=== PATIENT | male | born 1965 | race Caucasian/White ===

== ENCOUNTER 2016-05-22 08:58 | Inpatient (IN) | payer OTHER ==
[~2016-05-22] VITALS: Ht 177.8 cm; Wt 127.0 kg
--- NOTE | 2016-05-22 09:33 | PHYS DOC ---
Past Medical History Past Medical History: COPD Past Surgical History: Cholecystectomy, Other Additional Past Surgical Histo: MULTIPLE HERNIA REPAIRS, LAST BEING 2008 Alcohol Use: None Drug Use: Marijuana Adult General Chief Complaint Chief Complaint: ABDOMINAL PAIN HPI HPI Patient is a 50 year old male with history of COPD who presents today with 5 out of 10 sharp mid and right lower abdominal pain began 5 days ago. Patient denies any fever nausea vomiting urgency frequency or dysuria. Denies any diarrhea. He states he smokes with occasionally to help him relax. Patient states his pain is worse when he is moving around. Review of Systems Review of Systems Constitutional: See history of present illness Eyes: Denies change in visual acuity, redness, or eye pain [] HENT: Denies nasal congestion or sore throat [] Respiratory: Denies cough or shortness of breath [] Cardiovascular: No additional information not addressed in HPI [] GI: Mid and right lower abdominal pain : See history of present illness Musculoskeletal: Denies back pain or joint pain [] Integument: Denies rash or skin lesions [] Neurologic: Denies headache, focal weakness or sensory changes [] Endocrine: Denies polyuria or polydipsia [] Current Medications Current Medications Current Medications Medications (Trade) Dose Ordered Sig/Nelson Start Time Stop Time Status Last Admin Dose Admin Ciprofloxacin Lactate (Cipro 400mg Premix) 200 ml @ 200 mls/hr 1X ONCE 05/22/16 11:15 05/22/16 12:14 DC 05/22/16 11:24 200 MLS/HR Info 1 each 1 each PRN DAILY PRN 05/22/16 10:00 05/24/16 09:59 Iohexol (Omnipaque 300 Mg/ml) 75 ml 1X ONCE 05/22/16 09:45 05/22/16 09:46 DC 05/22/16 10:19 60 ML Metronidazole 100 ml @ 100 mls/hr Q8HRS 05/22/16 12:00 05/22/16 12:39 100 MLS/HR Morphine Sulfate 5 mg 1X ONCE 05/22/16 09:45 05/22/16 09:46 DC 05/22/16 09:40 5 MG Ondansetron HCl (Zofran) 4 mg 1X ONCE 05/22/16 09:45 05/22/16 09:46 DC 05/22/16 09:39 4 MG Sodium Chloride (Iv Sodium Chloride 0.9% 1000ml Bag) 1,000 ml @ 1,000 mls/hr 1X ONCE 05/22/16 09:45 05/22/16 10:44 DC 05/22/16 09:39 1,000 MLS/HR Allergies Allergies Allergies Coded Allergies Type Severity Reaction Last Updated Verified No Known Drug Allergies 02/26/15 No Physical Exam Physical Exam Constitutional: Well developed, well nourished, no acute distress, non-toxic appearance. [] HENT: Normocephalic, atraumatic, bilateral external ears normal, oropharynx moist, no oral exudates, nose normal. [] Eyes: PERRLA, EOMI, conjunctiva normal, no discharge. [] Neck: Normal range of motion, no tenderness, supple, no stridor. [] Cardiovascular:Heart rate regular rhythm, no murmur [] Lungs & Thorax: Bilateral breath sounds clear to auscultation [] Abdomen: Rounded abdomen. Bowel sounds normal, soft, diffuse tenderness to the right upper, right lower, ,and mid lower abdomen, negative Vizcarra's sign, negative psoas sign, negative Rovsing sign. No masses, no pulsatile masses. [] No guarding no rebound pain or tenderness. Skin: Warm, dry, no erythema, no rash. [] Back: No tenderness, no CVA tenderness. [] Extremities: No tenderness, no cyanosis, no clubbing, ROM intact, no edema. [] Neurologic: Alert and oriented X 3, normal motor function, normal sensory function, no focal deficits noted. [] Psychologic: Affect normal, judgement normal, mood normal. [] Current Patient Data Vital Signs Vital Signs Date Time Temp Pulse Resp B/P Pulse Ox O2 Delivery O2 Flow Rate FiO2 05/22/16 09:14 98.2 88 18 123/82 98 Room Air 98.2 Lab Values Laboratory Tests Test 05/22/16 09:10 05/22/16 09:20 White Blood Count 13.1x10^3/uL (4.0-11.0) H Red Blood Count 5.71x10^6/uL (4.30-5.70) H Hemoglobin 16.2g/dL (13.0-17.5) Hematocrit 47.7% (39.0-53.0) Mean Corpuscular Volume 84fL (79-100) Mean Corpuscular Hemoglobin 28pg (25-35) Mean Corpuscular Hemoglobin Concent 34g/dL (31-37) Red Cell Distribution Width 14.4% (11.5-14.5) Platelet Count 233x10^3/uL (140-400) Neutrophils (%) (Auto) 81% (31-73) H Lymphocytes (%) (Auto) 8% (24-48) L Monocytes (%) (Auto) 8% (0-9) Eosinophils (%) (Auto) 2% (0-3) Basophils (%) (Auto) 1% (0-3) Neutrophils # (Auto) 10.6x10^3uL (1.8-7.7) H Lymphocytes # (Auto) 1.1x10^3/uL (1.0-4.8) Monocytes # (Auto) 1.0x10^3/uL (0.0-1.1) Eosinophils # (Auto) 0.3x10^3/uL (0.0-0.7) Basophils # (Auto) 0.1x10^3/uL (0.0-0.2) Sodium Level 142mmol/L (136-145) Potassium Level 4.2mmol/L (3.5-5.1) Chloride Level 105mmol/L (98-107) Carbon Dioxide Level 27mmol/L (21-32) Anion Gap 10 (6-14) Blood Urea Nitrogen 20mg/dL (8-26) Creatinine 1.3mg/dL (0.7-1.3) Estimated GFR (Cockcroft-Gault) 58.0 BUN/Creatinine Ratio 15 (6-20) Glucose Level 115mg/dL (70-99) H Calcium Level 9.5mg/dL (8.5-10.1) Total Bilirubin 1.4mg/dL (0.2-1.0) H Aspartate Amino Transferase (AST) 22U/L (15-37) Alanine Aminotransferase (ALT) 53U/L (16-63) Alkaline Phosphatase 53U/L (46-116) Total Protein 8.2g/dL (6.4-8.2) Albumin 3.3g/dL (3.4-5.0) L Albumin/Globulin Ratio 0.7 (1.0-1.7) L Lipase 229U/L (73-393) Ethyl Alcohol Level < 10mg/dL (0-10) Urine Collection Type Void Urine Color Yellow Urine Clarity Clear Urine pH 5.5 Urine Specific [place] 1.015 Urine Protein Negativemg/dL (NEG-TRACE) Urine Glucose (UA) Negativemg/dL (NEG) Urine Ketones (Stick) Negativemg/dL (NEG) Urine Blood Trace (NEG) Urine Nitrite Negative (NEG) Urine Bilirubin Negative (NEG) Urine Urobilinogen Dipstick 0.2mg/dL (0.2 mg/dL) Urine Leukocyte Esterase Negative (NEG) Urine RBC 0/HPF (0-2) Urine WBC 0/HPF (0-4) Urine Squamous Epithelial Cells Few/LPF Urine Bacteria 0/HPF (0-FEW) Urine Mucus Slight/LPF Urine Opiates Screen Neg (NEG) Urine Methadone Screen Neg (NEG) Urine Barbiturates Neg (NEG) Urine Phencyclidine Screen Neg (NEG) Urine Amphetamine/Methamphetamine Neg (NEG) Urine Benzodiazepines Screen Neg (NEG) Urine Cocaine Screen Neg (NEG) Urine Cannabinoids Screen Pos (NEG) Urine Ethyl Alcohol Neg (NEG) Laboratory Tests 05/22/16 09:10 Laboratory Tests 05/22/16 09:10 EKG EKG [] Radiology/Procedures Radiology/Procedures []PROCEDURE: ABD PELV W/ IV CONTRAST ONLY EXAM: Abdomen and pelvis CT with intravenous contrast. HISTORY: Right lower quadrant pain. TECHNIQUE: Computed tomographic images of the abdomen and pelvis were obtained following the administration of 60 cc Omnipaque 300 intravenous contrast. Multiplanar reformatting was performed. COMPARISON: None. FINDINGS: Evaluation of the lower thorax demonstrates a calcified granuloma within the left lower lobe and bilateral posterior dependent atelectasis. There is no infiltrate or effusion. The heart is normal in size. There is hepatic steatosis. The gallbladder is surgically absent. The pancreas, spleen and right adrenal gland are unremarkable. There is calcification of atrophic left adrenal gland possibly due to the sequela of chronic hemorrhage. There is a 1.8 cm cyst within the lateral mid zone of the left kidney. The appendix is unremarkable. There is sigmoid diverticulosis with superimposed perforated diverticulitis. There is and associated small amount of intraperitoneal free air and surrounding inflammatory stranding. There is also a 2.7 cm ill-defined collection of fluid. The bladder is unremarkable. There are findings consistent with ventral abdominal wall hernia repair. There is soft tissue density within the ventral peritoneum adjacent to the umbilicus, possibly postoperative. No pathologically enlarged lymph node is seen. There is no suspicious osseous lesion. IMPRESSION: 1. Perforated sigmoid diverticulitis with associated small amount of pneumoperitoneum and extensive surrounding inflammatory stranding. There is also a 2.7 cm ill-defined fluid collection within this region. Short-term follow-up is recommended to exclude early abscess formation. 2. Hepatic steatosis. 3. 1.8 cm suspected left renal cyst. 4. Left adrenal calcification likely due to prior hemorrhage. PQRS Compliance Statement: One or more of the following individualized dose reduction techniques were utilized for this examination: 1. Automated exposure control 2. Adjustment of the mA and/or kV according to patient size 3. Use of iterative reconstruction technique DICTATED and SIGNED BY: NAM GILBERT MD DATE: 05/22/16 1033 CC: VALENTÍN VALDEZ MD; PATTI MARAVILLA APRN ~ Course & Med Decision Making Course & Med Decision Making Pertinent Labs and Imaging studies reviewed. (See chart for details) Patient is in the ED with complaints of mid to right lower abdominal pain that began 5 days ago. CBC with a WBC of 13.1, CMP with bilirubin of 1.4. Vitals are normal. CT of the abdomen and pelvic with IV contrast was noted for perforated sigmoid diverticulitis with associated small amount of pneumoperitoneum and extensive surrounding inflammatory stranding, there is also 2.7 cm ill-defined fluid collection within the region and radiologist recommended short-term follow -up to exclude an early abscess formation. CT also noted for 1.8 cm left renal cyst. 11:[address] Siegel and he was admitted 12:03 consulted with his PCP Dr. Valdez who accepted him for admission Patient was started on Flagyl and Cipro. IV fluids were also initiated. Admitted with pain medicines. Consult was also put in for GI. Dragon Disclaimer Dragon Disclaimer This electronic medical record was generated, in whole or in part, using a voice recognition dictation system. Departure Departure Impression: Primary Impression: Diverticulitis Admitting Physician: Valentín Valdez Condition: STABLE Referrals: VALENTÍN VALDEZ MD (PCP) Problem Qualifiers Primary Impression: Diverticulitis Diverticulitis site: large intestine Diverticulitis bleeding: without bleeding Diverticulitis complication: with perforation Qualified Code: K57.20 - Diverticulitis of large intestine with perforation and abscess without bleeding PATTI MARAVILLA APRN May 22, 2016 09:33
[2016-05-22 09:43] LABS: BILIRUBIN,URINE NEGATIVE (NEG); GLUCOSE,URINE NEGATIVE (NEG); NITRITE,URINE NEGATIVE (NEG); PH,URINE 5.5; PROTEIN,URINE NEGATIVE (NEG-TRACE); UROBILINOGEN,URINE 0.2 mg/dL (0.2 mg/dL)
[2016-05-22 09:45] LABS: BASO # 0.1 x10^3/uL (0.0-0.2); BASO % 1 % (0-3); EOS % 2 % (0-3); HEMATOCRIT 47.7 % (39.0-53.0); HEMOGLOBIN 16.2 g/dL (13.0-17.5); LYMPH # 1.1 x10^3/uL (1.0-4.8); LYMPH % 8 % (24-48); MEAN CORPUSCULAR HEMOGLOBIN 28 pg (25-35); MEAN CORPUSCULAR HGB CONC 34 g/dL (31-37); MEAN CORPUSCULAR VOLUME 84 fL (79-100); MONO % 8 % (0-9); NEUT % 81 % (31-73); PLATELET COUNT 233 x10^3/uL (140-400); RED BLOOD COUNT 5.71 x10^6/uL (4.30-5.70); RED CELL DISTRIBUTION WIDTH 14.4 % (11.5-14.5); WHITE BLOOD COUNT 13.1 x10^3/uL (4.0-11.0)
[2016-05-22] MEDS ORDERED: ONDANSETRON PF 4 MG/2 ML VIAL. IV ONE (09:45)
[2016-05-22] MEDS ORDERED: MORPHINE SULFATE 10 MG/ML VIAL. IV ONE (09:45)
[2016-05-22] MEDS ORDERED: IOHEXOL 300 MG/ML 75 ML VIAL IV ONE (09:45)
[2016-05-22] MEDS ORDERED: IV NORMAL SALINE 1000ML BAG 1,000 ML IV ONE ×2 (09:45→13:30)
[2016-05-22 09:48] LABS: CALCIUM 9.5 mg/dL (8.5-10.1); CREATININE 1.3 mg/dL (0.7-1.3); POTASSIUM 4.2 mmol/L (3.5-5.1)
[2016-05-22 09:53] LABS: BARBITURATES NEG (NEG); BENZODIAZEPINES NEG (NEG); CANNABINOIDS POS (NEG); COCAINE NEG (NEG); ETHANOL, URINE NEG (NEG); METHADONE NEG (NEG); OPIATES NEG (NEG); PHENCYCLIDINE NEG (NEG)
[2016-05-22 09:53] LABS: ALBUMIN 3.3 g/dL (3.4-5.0); ALBUMIN/GLOBULIN RATIO 0.7 (1.0-1.7); TOTAL BILIRUBIN 1.4 mg/dL (0.2-1.0); TOTAL PROTEIN 8.2 g/dL (6.4-8.2)
[2016-05-22 09:58] LABS: BACTERIA,URINE 0 /HPF (0-FEW); RBC,URINE 0 /HPF (0-2); SQUAMOUS EPITHELIAL CELL,UR FEW /LPF; WBC,URINE 0 /HPF (0-4)
[2016-05-22] MEDS ORDERED: CONTRAST GIVEN MC PRN (10:00)
--- NOTE | 2016-05-22 10:42 | RAD ---
EXAM: Abdomen and pelvis CT with intravenous contrast. HISTORY: Right lower quadrant pain. TECHNIQUE: Computed tomographic images of the abdomen and pelvis were obtained following the administration of 60 cc Omnipaque 300 intravenous contrast. Multiplanar reformatting was performed. COMPARISON: None. FINDINGS: Evaluation of the lower thorax demonstrates a calcified granuloma within the left lower lobe and bilateral posterior dependent atelectasis. There is no infiltrate or effusion. The heart is normal in size. There is hepatic steatosis. The gallbladder is surgically absent. The pancreas, spleen and right adrenal gland are unremarkable. There is calcification of atrophic left adrenal gland possibly due to the sequela of chronic hemorrhage. There is a 1.8 cm cyst within the lateral mid zone of the left kidney. The appendix is unremarkable. There is sigmoid diverticulosis with superimposed perforated diverticulitis. There is and associated small amount of intraperitoneal free air and surrounding inflammatory stranding. There is also a 2.7 cm ill-defined collection of fluid. The bladder is unremarkable. There are findings consistent with ventral abdominal wall hernia repair. There is soft tissue density within the ventral peritoneum adjacent to the umbilicus, possibly postoperative. No pathologically enlarged lymph node is seen. There is no suspicious osseous lesion. IMPRESSION: 1. Perforated sigmoid diverticulitis with associated small amount of pneumoperitoneum and extensive surrounding inflammatory stranding. There is also a 2.7 cm ill-defined fluid collection within this region. Short-term follow-up is recommended to exclude early abscess formation. 2. Hepatic steatosis. 3. 1.8 cm suspected left renal cyst. 4. Left adrenal calcification likely due to prior hemorrhage. PQRS Compliance Statement: One or more of the following individualized dose reduction techniques were utilized for this examination: 1. Automated exposure control 2. Adjustment of the mA and/or kV according to patient size 3. Use of iterative reconstruction technique
[2016-05-22] MEDS ORDERED: CIPROFLOXACIN 400MG PREMIX 200 ML IV ONE (11:15)
[2016-05-22] MEDS: METRONIDAZOLE 500mg PREMIX 100 ML IV SCH ×2 (12:39→23:27)
[2016-05-22] MEDS ORDERED: ONDANSETRON PF 4 MG/2 ML VIAL. IV PRN (12:45)
[2016-05-22] MEDS: HYDROMORPHONE 2 MG/ML VIAL. IV PRN ×3 (13:15→21:23)
[2016-05-22 13:30] VITALS: BP 146/71
--- NOTE | 2016-05-22 13:31 | PDOC ---
Provider Note Provider Note #[id number]--gshnurp agree with npo, iv abx Thanks! PRIETO NEWTON MD May 22, 2016 13:31
[2016-05-22] MEDS ORDERED: METRONIDAZOLE 500mg PREMIX 100 ML IV SCH (14:00)
[2016-05-22 15:00] VITALS: BP 127/72
[2016-05-22 19:30] VITALS: BP 143/74
[2016-05-22] MEDS ORDERED: CIPROFLOXACIN 400MG PREMIX 200 ML IV SCH (21:00)
[2016-05-22] MEDS: FAMOTIDINE 20 MG/2 ML VIAL IVP SCH (21:22)
[2016-05-22] MEDS: CIPROFLOXACIN 400MG PREMIX 200 ML IV SCH (21:24)
[2016-05-22 23:15] VITALS: BP 151/82
[2016-05-23 02:44] VITALS: BP 128/77
[2016-05-23] MEDS: HYDROMORPHONE 2 MG/ML VIAL. IV PRN ×6 (03:55→23:49)
[2016-05-23 05:19] LABS: BASO % 1 % (0-3); EOS % 1 % (0-3); HEMATOCRIT 41.8 % (39.0-53.0); HEMOGLOBIN 14.1 g/dL (13.0-17.5); LYMPH % 11 % (24-48); MEAN CORPUSCULAR HEMOGLOBIN 28 pg (25-35); MEAN CORPUSCULAR HGB CONC 34 g/dL (31-37); MEAN CORPUSCULAR VOLUME 84 fL (79-100); MONO % 11 % (0-9); NEUT % 77 % (31-73); PLATELET COUNT 216 x10^3/uL (140-400); RED BLOOD COUNT 4.99 x10^6/uL (4.30-5.70); RED CELL DISTRIBUTION WIDTH 14.1 % (11.5-14.5); WHITE BLOOD COUNT 9.6 x10^3/uL (4.0-11.0)
[2016-05-23 05:47] LABS: ALBUMIN 2.8 g/dL (3.4-5.0); ALBUMIN/GLOBULIN RATIO 0.7 (1.0-1.7); CALCIUM 8.7 mg/dL (8.5-10.1); CREATININE 1.2 mg/dL (0.7-1.3); GFR 63.6; POTASSIUM 4.2 mmol/L (3.5-5.1); TOTAL BILIRUBIN 1.2 mg/dL (0.2-1.0); TOTAL PROTEIN 6.8 g/dL (6.4-8.2)
[2016-05-23] MEDS: METRONIDAZOLE 500mg PREMIX 100 ML IV SCH ×3 (06:15→22:34)
[2016-05-23 07:00] VITALS: BP 136/81
--- NOTE | 2016-05-23 07:07 | CONS ---
DATE OF CONSULTATION: 05/22/2016 CHIEF COMPLAINT: Abdominal pain. HISTORY OF PRESENT ILLNESS: The patient is a 50-year-old male, who presents with worsening left lower quadrant pain since Monday. The pain is not severe. It is constant with periods of worsening. It is a sharp, crampy type of pain. It is exacerbated by movement and he has no relieving factors. He has no associated nausea or vomiting. He has had some associated constipation. PAST MEDICAL HISTORY: 1. COPD. 2. Traumatic brain injury. PAST SURGICAL HISTORY: 1. Tracheostomy. 2. Multiple orthopedic surgeries. 3. Laparoscopic cholecystectomy. 4. Incisional hernia repair at both the umbilical incision as well as his epigastric incision, the last of which was in 2008 and he says he did have mesh placed at both sites. SOCIAL HISTORY: He smokes marijuana. He does not use alcohol heavily. He has his fiancee and son with him at this time and he is employed. FAMILY HISTORY: Noncontributory to this illness. ALLERGIES: No known drug allergies. HOME MEDICATIONS: None. REVIEW OF SYSTEMS: CONSTITUTIONAL: No fevers or chills. EYES: No abrupt loss of vision or double vision. He does have some blurred vision at times. HEENT: He has loss of hearing and some ringing in his ears. CARDIOVASCULAR: No chest pain or heart palpitations. RESPIRATORY: No cough or shortness of breath. GASTROINTESTINAL: See HPI. GENITOURINARY: No dysuria or hematuria. HEMATOLOGIC: No easy bleeding or bruising. MUSCULOSKELETAL: He has chronic myalgias and arthralgias due to his multiple orthopedic injuries. DERMATOLOGIC: No new skin rashes or lesions. PSYCHIATRIC: Denies depression or anxiety. NEUROLOGIC: He has headaches. No seizures. He does have some traumatic brain injury. ENDOCRINE: No polyuria or polydipsia. PHYSICAL EXAMINATION: VITAL SIGNS: He is afebrile, with a pulse of 88, respiratory rate 18, blood pressure 123/82, O2 sats 98% on room air. GENERAL: This is an obese male, who is in no acute distress. His BMI is 40.2. EYES: His pupils are round and reactive. Sclerae are nonicteric. HEAD, EARS, NOSE, THROAT: Head is atraumatic. Mucous membranes are moist. Face is symmetric. NECK: Supple, without cervical lymphadenopathy, no supraclavicular lymphadenopathy. Neck without masses or tenderness. CARDIOVASCULAR: By palpation of his right radial pulse, he has 2+ right radial pulse. No pedal edema. His rate is regular. RESPIRATORY: His respirations are nonlabored. He is on room air. Chest wall is nontender to palpation. ABDOMEN: Soft, nondistended. He is focally tender in the left lower quadrant and the lower midline, with no rebound and no guarding. He has incisions consistent with his previous surgical history. DERMATOLOGIC: Exposed portions of his skin are unremarkable. NEUROLOGIC: He has no resting tremor. He can move all 4 extremities without difficulty. 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 PSYCHIATRIC: He is cooperative with appropriate mood and affect. LABORATORY DATA: Reviewed. CT scan images as well as the report was reviewed. ASSESSMENT: 1. Perforated diverticulitis. 2. Morbid obesity with BMI of 40.2. 3. Chronic obstructive pulmonary disease. 4. Marijuana use. 5. Traumatic brain injury. PLAN: The patient's exam is very focal. His vital signs are stable. I think it is very reasonable to keep him n.p.o. with IV antibiotics. Given the amount of air in a contained pocket around his sigmoid colon, he is at risk of developing an abscess. I did discuss that with him. If he does not improve, we may need to repeat a CT scan to see if he has developed an abscess that may be amenable to percutaneous drainage. Certainly, if he fails medical management, he could require operative intervention. This was all discussed with the patient. Questions were answered and he voices understanding of the treatment plan. PRIETO NEWTON MD DR: ANDRY/lisa JOB#: [id number] / [id number] VALENTÍN June MD
[2016-05-23] MEDS: CIPROFLOXACIN 400MG PREMIX 200 ML IV SCH ×2 (08:18→21:18)
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
[2016-05-23] MEDS ORDERED: INFLUENZA VAX SCREEN BY RX. MC PRN (09:15)
--- NOTE | 2016-05-23 09:21 | PDOC ---
PROGRESS NOTES Subjective Subjective Pt awake and pleasant. States pain is improved with pain medication. Pt states a continuous urge to defecate. Pt states he does not have an appetite and is currently NPO. Objective Objective Pt awake and alert. NAD. VSS. Afebrile. Lungs CTA bilat. Resp even and unlabored. Heart with RRR. No murmurs. Abdomen tender throughout, specifically in LLQ, nondistended and soft. Vital Signs Date Time Temp Pulse Resp B/P Pulse Ox O2 Delivery O2 Flow Rate FiO2 05/23/16 08:52 96 Room Air 05/23/16 07:00 98.2 81 20 136/81 98.2 Intake and Output 05/23/16 07:00 Intake Total 1784 ml Output Total 950 ml Balance 834 ml Intake Oral 0 ml IV Total 1784 ml Output Urine Total 900 ml Emesis 50 ml # Voids 1 Assessment Assessment Problems Medical Problems: (1) Diverticulitis Status: Acute Plan Plan of Care 1. Acute perfarated diverticulitis -CT: "Perforated sigmoid diverticulitis with associated small amount of pneumoperitoneum and extensive surrounding inflammatory stranding. There is also a 2.7 cm ill-defined fluid collection within this region. Short-term follow -up is recommended to exclude early abscess formation." -WBC upon admission 13.1, 9.6 this am -Abx: Cipro IV -Surgery consulting -Interventional radiology consulting, probable drain placement today -NPO Comment Review of Relevant I have reviewed the following items ho (where applicable) has been applied. Labs Laboratory Tests Test 05/22/16 09:10 05/22/16 09:20 05/23/16 04:20 White Blood Count 13.1x10^3/uL (4.0-11.0) 9.6x10^3/uL (4.0-11.0) Red Blood Count 5.71x10^6/uL (4.30-5.70) 4.99x10^6/uL (4.30-5.70) Hemoglobin 16.2g/dL (13.0-17.5) 14.1g/dL (13.0-17.5) Hematocrit 47.7% (39.0-53.0) 41.8% (39.0-53.0) Mean Corpuscular Volume 84fL (79-100) 84fL (79-100) Mean Corpuscular Hemoglobin 28pg (25-35) 28pg (25-35) Mean Corpuscular Hemoglobin Concent 34g/dL (31-37) 34g/dL (31-37) Red Cell Distribution Width 14.4% (11.5-14.5) 14.1% (11.5-14.5) Platelet Count 233x10^3/uL (140-400) 216x10^3/uL (140-400) Neutrophils (%) (Auto) 81% (31-73) 77% (31-73) Lymphocytes (%) (Auto) 8% (24-48) 11% (24-48) Monocytes (%) (Auto) 8% (0-9) 11% (0-9) Eosinophils (%) (Auto) 2% (0-3) 1% (0-3) Basophils (%) (Auto) 1% (0-3) 1% (0-3) Neutrophils # (Auto) 10.6x10^3uL (1.8-7.7) 7.4x10^3uL (1.8-7.7) Lymphocytes # (Auto) 1.1x10^3/uL (1.0-4.8) 1.0x10^3/uL (1.0-4.8) Monocytes # (Auto) 1.0x10^3/uL (0.0-1.1) 1.0x10^3/uL (0.0-1.1) Eosinophils # (Auto) 0.3x10^3/uL (0.0-0.7) 0.1x10^3/uL (0.0-0.7) Basophils # (Auto) 0.1x10^3/uL (0.0-0.2) 0.0x10^3/uL (0.0-0.2) Sodium Level 142mmol/L (136-145) 145mmol/L (136-145) Potassium Level 4.2mmol/L (3.5-5.1) 4.2mmol/L (3.5-5.1) Chloride Level 105mmol/L (98-107) 109mmol/L (98-107) Carbon Dioxide Level 27mmol/L (21-32) 27mmol/L (21-32) Anion Gap 10 (6-14) 9 (6-14) Blood Urea Nitrogen 20mg/dL (8-26) 19mg/dL (8-26) Creatinine 1.3mg/dL (0.7-1.3) 1.2mg/dL (0.7-1.3) Estimated GFR (Cockcroft-Gault) 58.0 63.6 BUN/Creatinine Ratio 15 (6-20) 16 (6-20) Glucose Level 115mg/dL (70-99) 106mg/dL (70-99) Calcium Level 9.5mg/dL (8.5-10.1) 8.7mg/dL (8.5-10.1) Total Bilirubin 1.4mg/dL (0.2-1.0) 1.2mg/dL (0.2-1.0) Aspartate Amino Transf (AST/SGOT) 22U/L (15-37) 20U/L (15-37) Alanine Aminotransferase (ALT/SGPT) 53U/L (16-63) 57U/L (16-63) Alkaline Phosphatase 53U/L (46-116) 46U/L (46-116) Total Protein 8.2g/dL (6.4-8.2) 6.8g/dL (6.4-8.2) Albumin 3.3g/dL (3.4-5.0) 2.8g/dL (3.4-5.0) Albumin/Globulin Ratio 0.7 (1.0-1.7) 0.7 (1.0-1.7) Lipase 229U/L (73-393) Ethyl Alcohol Level < 10mg/dL (0-10) Urine Collection Type Void Urine Color Yellow Urine Clarity Clear Urine pH 5.5 Urine Specific [place] 1.015 Urine Protein Negativemg/dL (NEG-TRACE) Urine Glucose (UA) Negativemg/dL (NEG) Urine Ketones (Stick) Negativemg/dL (NEG) Urine Blood Trace (NEG) Urine Nitrite Negative (NEG) Urine Bilirubin Negative (NEG) Urine Urobilinogen Dipstick 0.2mg/dL (0.2 mg/dL) Urine Leukocyte Esterase Negative (NEG) Urine RBC 0/HPF (0-2) Urine WBC 0/HPF (0-4) Urine Squamous Epithelial Cells Few/LPF Urine Bacteria 0/HPF (0-FEW) Urine Mucus Slight/LPF Urine Opiates Screen Neg (NEG) Urine Methadone Screen Neg (NEG) Urine Barbiturates Neg (NEG) Urine Phencyclidine Screen Neg (NEG) Urine Amphetamine/Methamphetamine Neg (NEG) Urine Benzodiazepines Screen Neg (NEG) Urine Cocaine Screen Neg (NEG) Urine Cannabinoids Screen Pos (NEG) Urine Ethyl Alcohol Neg (NEG) Laboratory Tests Test 05/22/16 09:20 05/23/16 04:20 Urine Collection Type Void Urine Color Yellow Urine Clarity Clear Urine pH 5.5 Urine Specific [place] 1.015 Urine Protein Negativemg/dL (NEG-TRACE) Urine Glucose (UA) Negativemg/dL (NEG) Urine Ketones (Stick) Negativemg/dL (NEG) Urine Blood Trace (NEG) Urine Nitrite Negative (NEG) Urine Bilirubin Negative (NEG) Urine Urobilinogen Dipstick 0.2mg/dL (0.2 mg/dL) Urine Leukocyte Esterase Negative (NEG) Urine RBC 0/HPF (0-2) Urine WBC 0/HPF (0-4) Urine Squamous Epithelial Cells Few/LPF Urine Bacteria 0/HPF (0-FEW) Urine Mucus Slight/LPF Urine Opiates Screen Neg (NEG) Urine Methadone Screen Neg (NEG) Urine Barbiturates Neg (NEG) Urine Phencyclidine Screen Neg (NEG) Urine Amphetamine/Methamphetamine Neg (NEG) Urine Benzodiazepines Screen Neg (NEG) Urine Cocaine Screen Neg (NEG) Urine Cannabinoids Screen Pos (NEG) Urine Ethyl Alcohol Neg (NEG) White Blood Count 9.6x10^3/uL (4.0-11.0) Red Blood Count 4.99x10^6/uL (4.30-5.70) Hemoglobin 14.1g/dL (13.0-17.5) Hematocrit 41.8% (39.0-53.0) Mean Corpuscular Volume 84fL (79-100) Mean Corpuscular Hemoglobin 28pg (25-35) Mean Corpuscular Hemoglobin Concent 34g/dL (31-37) Red Cell Distribution Width 14.1% (11.5-14.5) Platelet Count 216x10^3/uL (140-400) Neutrophils (%) (Auto) 77% (31-73) Lymphocytes (%) (Auto) 11% (24-48) Monocytes (%) (Auto) 11% (0-9) Eosinophils (%) (Auto) 1% (0-3) Basophils (%) (Auto) 1% (0-3) Neutrophils # (Auto) 7.4x10^3uL (1.8-7.7) Lymphocytes # (Auto) 1.0x10^3/uL (1.0-4.8) Monocytes # (Auto) 1.0x10^3/uL (0.0-1.1) Eosinophils # (Auto) 0.1x10^3/uL (0.0-0.7) Basophils # (Auto) 0.0x10^3/uL (0.0-0.2) Sodium Level 145mmol/L (136-145) Potassium Level 4.2mmol/L (3.5-5.1) Chloride Level 109mmol/L (98-107) Carbon Dioxide Level 27mmol/L (21-32) Anion Gap 9 (6-14) Blood Urea Nitrogen 19mg/dL (8-26) Creatinine 1.2mg/dL (0.7-1.3) Estimated GFR (Cockcroft-Gault) 63.6 BUN/Creatinine Ratio 16 (6-20) Glucose Level 106mg/dL (70-99) Calcium Level 8.7mg/dL (8.5-10.1) Total Bilirubin 1.2mg/dL (0.2-1.0) Aspartate Amino Transf (AST/SGOT) 20U/L (15-37) Alanine Aminotransferase (ALT/SGPT) 57U/L (16-63) Alkaline Phosphatase 46U/L (46-116) Total Protein 6.8g/dL (6.4-8.2) Albumin 2.8g/dL (3.4-5.0) Albumin/Globulin Ratio 0.7 (1.0-1.7) Medications Current Medications Sodium Chloride (Iv Sodium Chloride 0.9% 1000ml Bag) 1,000 ml @ 1,000 mls/hr 1X ONCE IV Last administered on 05/22/16t 09:39; Start 05/22/16 at 09:45; Stop 05/22/16 at 10:44; Status DC Ondansetron HCl (Zofran) 4 mg 1X ONCE IV Last administered on 05/22/16 09:39 ; Start 05/22/16 at 09:45; Stop 05/22/16 at 09:46; Status DC Morphine Sulfate 5 mg 1X ONCE IV Last administered on 05/22/16 09:40; Start 05/22/16 at 09:45; Stop 05/22/16 at 09:46; Status DC Iohexol (Omnipaque 300 Mg/ml) 75 ml 1X ONCE IV Last administered on 05/22/16 10:19; Start 05/22/16 at 09:45; Stop 05/22/16 at 09:46; Status DC Info 1 each 1 each PRN DAILY PRN MC SEE COMMENTS; Start 05/22/16 at 10:00; Stop 05/24/16 at 09:59 Metronidazole 100 ml @ 100 mls/hr Q8HRS IV Last administered on 05/23/16 06: 15; Start 05/22/16 at 12:00 Ciprofloxacin Lactate 200 ml @ 200 mls/hr Q12HR IV Last administered on 08:18; Start 05/22/16 at 21:00 Ciprofloxacin Lactate (Cipro 400mg Premix) 200 ml @ 200 mls/hr 1X ONCE IV Last administered on 05/22/16 11:24; Start 05/22/16 at 11:15; Stop 05/22/16 at 12:14; Status DC Ondansetron HCl (Zofran) 4 mg PRN Q8HRS PRN IV NAUSEA/VOMITING Last administered on 05/22/16 21:22; Start 05/22/16 at 12:45; Stop 05/23/16 at 12:44 Hydromorphone HCl 1 mg 1 mg PRN Q3HRS PRN IV PAIN Last administered on 08:18; Start 05/22/16 at 12:45 Sodium Chloride 1,000 ml @ 125 mls/hr 1X ONCE IV Last administered on 14:06; Start 05/22/16 at 13:30; Stop 05/22/16 at 21:29; Status DC Metronidazole 100 ml @ 100 mls/hr Q8HRS IV ; Start 05/22/16 at 14:00; Status UNV Ciprofloxacin Lactate (Cipro 400mg Premix) 200 ml @ 200 mls/hr Q12HR IV ; Start 05/22/16 at 21:00; Status UNV Famotidine (Pepcid) 20 mg QHS IVP Last administered on 05/22/16t 21:22; Start 05/22/16 at 21:00 Vitals/I & O Vital Sign - Last 24 Hours 05/22/16 05/22/16 05/22/16 05/22/16 09:14 10:00 11:00 12:00 Temp 98.2 98.2 Pulse 88 77 72 72 Resp 18 18 18 18 B/P 123/82 121/88 127/79 132/72 Pulse Ox 98 97 97 97 O2 Delivery Room Air Room Air Room Air Room Air 05/22/16 05/22/16 05/22/16 05/22/16 13:00 13:30 13:30 13:30 Temp 98.4 98.4 98.4 98.4 Pulse 78 95 95 Resp 16 20 20 B/P 117/77 146/71 146/71 Pulse Ox 97 94 94 O2 Delivery Room Air Room Air Room Air Room Air 05/22/16 05/22/16 05/22/16 05/22/16 15:00 16:48 19:30 20:45 Temp 98.2 99.2 98.2 99.2 Pulse 88 90 Resp 20 16 16 B/P 127/72 143/74 Pulse Ox 91 94 O2 Delivery Room Air Room Air BiPAP/CPAP Room Air 05/22/16 05/22/16 05/23/16 05/23/16 21:23 23:15 02:44 03:55 Temp 97.8 99.1 97.8 99.1 Pulse 87 73 Resp 16 20 16 18 B/P 151/82 128/77 Pulse Ox 92 96 O2 Delivery Room Air Room Air BiPAP/CPAP Room Air 05/23/16 05/23/16 05/23/16 05/23/16 04:25 07:00 08:18 08:52 Temp 98.2 98.2 Pulse 81 Resp 18 20 B/P 136/81 Pulse Ox 97 96 96 O2 Delivery Room Air Room Air Room Air Intake and Output 05/22/16 05/22/16 05/23/16 15:00 23:00 07:00 Intake Total 1200 ml 584 ml 0 ml Output Total 350 ml 600 ml Balance 1200 ml 234 ml -600 ml VALENTÍN ROBLES MD May 23, 2016 09:21
[2016-05-23] MEDS ORDERED: FLU VACC QUAD 2016-17 (36MOS+)/PF 0.5 ML SYRINGE. VAX IM ONE (10:00)
[2016-05-23 10:41] VITALS: BP 136/69
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
--- NOTE | 2016-05-23 11:39 | CONS ---
DATE OF CONSULTATION: 05/22/2016 CHIEF COMPLAINT: Abdominal pain. HISTORY OF PRESENT ILLNESS: The patient is a 50-year-old male who noted that he developed left lower quadrant pain Monday. The pain has become increasingly severe. The pain is constant with periods of worsening. It is sharp, crampy type of pain, it is now fairly severe with the aggravating factor being movements. No relieving factors. He has been unable to have a good bowel movement in the last several days and he has had no nausea or vomiting. PAST MEDICAL HISTORY: 1. COPD. 2. Traumatic brain injury. PAST SURGICAL HISTORY: 1. Cholecystectomy, laparoscopic. 2. Repair of the epigastric and umbilical incisional hernia. DICTATION ENDS HERE the dictation abruptly ended so i redictated the consult. ignore the above. PRIETO NEWTON MD DR: ANDRY/lisa JOB#: [id number] / [id number] VALENTÍN June MD MTDD
[2016-05-23] MEDS: ONDANSETRON PF 4 MG/2 ML VIAL. IV PRN ×2 (13:00→23:49)
--- NOTE | 2016-05-23 13:09 | PDOC ---
Provider Note Provider Note Pain without sig change since admission. no n/v. pain worse with movement afeb vss wbc normal alert abd soft nd focal LLQ and suprapubic tenderness a/p diverticulitis. cont iv abx and npo. may need to repeat ct in a couple of days to assess for development of abscess if he doesn't improve PRIETO NEWTON MD May 23, 2016 13:09
[2016-05-23 15:38] VITALS: BP 145/75
[2016-05-23 19:00] VITALS: BP 158/78
[2016-05-23] MEDS: FAMOTIDINE 20 MG/2 ML VIAL IVP SCH (21:17)
[2016-05-23] MEDS: IV DEXTROSE 5% - 0.9 % NACL 1,000 ML IV SCH (21:23)
[2016-05-23 23:15] VITALS: BP 150/84
[2016-05-24 03:10] VITALS: BP 147/79
[2016-05-24] MEDS: HYDROMORPHONE 2 MG/ML VIAL. IV PRN ×6 (03:39→21:03)
[2016-05-24] MEDS: ONDANSETRON PF 4 MG/2 ML VIAL. IV PRN ×3 (06:02→19:08)
[2016-05-24] MEDS: METRONIDAZOLE 500mg PREMIX 100 ML IV SCH ×3 (06:03→22:07)
[2016-05-24 07:00] VITALS: BP 150/79
--- NOTE | 2016-05-24 08:24 | PDOC ---
JESUS BASS DECORATING SUPERVISOR 05/24/16 0823: SURGICAL PROGRESS NOTE Subjective significant pain last night with attempting bowel movement + emesis last night still moderate amount of pain with movement Vital Signs Vital Signs Date Time Temp Pulse Resp B/P Pulse Ox O2 Delivery O2 Flow Rate FiO2 05/24/16 07:25 18 94 Room Air 05/24/16 07:00 97.7 80 150/79 97.7 I&O Intake and Output 05/24/16 07:00 Intake Total 1303 ml Output Total 450 ml Balance 853 ml Intake Oral 0 ml IV Total 300 ml Other 1003 ml Output Urine Total 400 ml Emesis 50 ml General: Alert, Oriented X3, Cooperative, No acute distress Abdomen: Soft, Other (moderate ttp to lower abdomen, greatest to LLQ/suprapubic ) Labs Laboratory Tests Test 05/22/16 09:10 05/22/16 09:20 05/23/16 04:20 White Blood Count 13.1x10^3/uL (4.0-11.0) 9.6x10^3/uL (4.0-11.0) Red Blood Count 5.71x10^6/uL (4.30-5.70) 4.99x10^6/uL (4.30-5.70) Hemoglobin 16.2g/dL (13.0-17.5) 14.1g/dL (13.0-17.5) Hematocrit 47.7% (39.0-53.0) 41.8% (39.0-53.0) Mean Corpuscular Volume 84fL (79-100) 84fL (79-100) Mean Corpuscular Hemoglobin 28pg (25-35) 28pg (25-35) Mean Corpuscular Hemoglobin Concent 34g/dL (31-37) 34g/dL (31-37) Red Cell Distribution Width 14.4% (11.5-14.5) 14.1% (11.5-14.5) Platelet Count 233x10^3/uL (140-400) 216x10^3/uL (140-400) Neutrophils (%) (Auto) 81% (31-73) 77% (31-73) Lymphocytes (%) (Auto) 8% (24-48) 11% (24-48) Monocytes (%) (Auto) 8% (0-9) 11% (0-9) Eosinophils (%) (Auto) 2% (0-3) 1% (0-3) Basophils (%) (Auto) 1% (0-3) 1% (0-3) Neutrophils # (Auto) 10.6x10^3uL (1.8-7.7) 7.4x10^3uL (1.8-7.7) Lymphocytes # (Auto) 1.1x10^3/uL (1.0-4.8) 1.0x10^3/uL (1.0-4.8) Monocytes # (Auto) 1.0x10^3/uL (0.0-1.1) 1.0x10^3/uL (0.0-1.1) Eosinophils # (Auto) 0.3x10^3/uL (0.0-0.7) 0.1x10^3/uL (0.0-0.7) Basophils # (Auto) 0.1x10^3/uL (0.0-0.2) 0.0x10^3/uL (0.0-0.2) Sodium Level 142mmol/L (136-145) 145mmol/L (136-145) Potassium Level 4.2mmol/L (3.5-5.1) 4.2mmol/L (3.5-5.1) Chloride Level 105mmol/L (98-107) 109mmol/L (98-107) Carbon Dioxide Level 27mmol/L (21-32) 27mmol/L (21-32) Anion Gap 10 (6-14) 9 (6-14) Blood Urea Nitrogen 20mg/dL (8-26) 19mg/dL (8-26) Creatinine 1.3mg/dL (0.7-1.3) 1.2mg/dL (0.7-1.3) Estimated GFR (Cockcroft-Gault) 58.0 63.6 BUN/Creatinine Ratio 15 (6-20) 16 (6-20) Glucose Level 115mg/dL (70-99) 106mg/dL (70-99) Calcium Level 9.5mg/dL (8.5-10.1) 8.7mg/dL (8.5-10.1) Total Bilirubin 1.4mg/dL (0.2-1.0) 1.2mg/dL (0.2-1.0) Aspartate Amino Transf (AST/SGOT) 22U/L (15-37) 20U/L (15-37) Alanine Aminotransferase (ALT/SGPT) 53U/L (16-63) 57U/L (16-63) Alkaline Phosphatase 53U/L (46-116) 46U/L (46-116) Total Protein 8.2g/dL (6.4-8.2) 6.8g/dL (6.4-8.2) Albumin 3.3g/dL (3.4-5.0) 2.8g/dL (3.4-5.0) Albumin/Globulin Ratio 0.7 (1.0-1.7) 0.7 (1.0-1.7) Lipase 229U/L (73-393) Ethyl Alcohol Level < 10mg/dL (0-10) Urine Collection Type Void Urine Color Yellow Urine Clarity Clear Urine pH 5.5 Urine Specific [place] 1.015 Urine Protein Negativemg/dL (NEG-TRACE) Urine Glucose (UA) Negativemg/dL (NEG) Urine Ketones (Stick) Negativemg/dL (NEG) Urine Blood Trace (NEG) Urine Nitrite Negative (NEG) Urine Bilirubin Negative (NEG) Urine Urobilinogen Dipstick 0.2mg/dL (0.2 mg/dL) Urine Leukocyte Esterase Negative (NEG) Urine RBC 0/HPF (0-2) Urine WBC 0/HPF (0-4) Urine Squamous Epithelial Cells Few/LPF Urine Bacteria 0/HPF (0-FEW) Urine Mucus Slight/LPF Urine Opiates Screen Neg (NEG) Urine Methadone Screen Neg (NEG) Urine Barbiturates Neg (NEG) Urine Phencyclidine Screen Neg (NEG) Urine Amphetamine/Methamphetamine Neg (NEG) Urine Benzodiazepines Screen Neg (NEG) Urine Cocaine Screen Neg (NEG) Urine Cannabinoids Screen Pos (NEG) Urine Ethyl Alcohol Neg (NEG) Problem List Problems Medical Problems: (1) Diverticulitis Status: Acute Assessment/Plan afebrile, however continued pain without much improvement will plan CT in AM to assess for abscess continue NPO, IV abx Problems: PRIETO NEWTON MD 05/24/16 1126: SURGICAL PROGRESS NOTE Assessment/Plan addendum i saw and examined him. He had increased pain last night after trying to have a bm, but is now feeling better. afeb vss abd soft less tender nondistended a/p diverticulitis, will get CT tomorrow to eval for development of abscess. cont iv abx and npo. Problems: JESUS BASS APRN May 24, 2016 08:23 PRIETO NEWTON MD May 24, 2016 11:26
[2016-05-24] MEDS: CIPROFLOXACIN 400MG PREMIX 200 ML IV SCH ×2 (09:00→21:02)
--- NOTE | 2016-05-24 09:09 | PDOC ---
PROGRESS NOTES Subjective Subjective Pt awake and pleasant this am. Cont to c/o pain, however states he is less tender with palpation. Pt vomiting intermittently over last 24 hours. Pt continues to be NPO. Objective Objective Pt awake and alert. Appears uncomfortable lying in bed. VSS. Afebrile. Lungs CTA bilat. Resp even and unlabored. Heart with RRR. No murmurs. Abdomen soft, nondistended, tender to palpation throughout. Vital Signs Date Time Temp Pulse Resp B/P Pulse Ox O2 Delivery O2 Flow Rate FiO2 05/24/16 07:25 18 94 Room Air 05/24/16 07:00 97.7 80 150/79 97.7 Intake and Output 05/24/16 07:00 Intake Total 1303 ml Output Total 450 ml Balance 853 ml Intake Oral 0 ml IV Total 300 ml Other 1003 ml Output Urine Total 400 ml Emesis 50 ml Assessment Assessment Problems Medical Problems: (1) Diverticulitis Status: Acute Plan Plan of Care . Acute perfarated diverticulitis -CT: "Perforated sigmoid diverticulitis with associated small amount of pneumoperitoneum and extensive surrounding inflammatory stranding. There is also a 2.7 cm ill-defined fluid collection within this region. Short-term follow -up is recommended to exclude early abscess formation." -Repeat CT today to r/o abscess -WBC upon admission 13.1, 9.6 this am. Repeat ordered -Abx: Cipro IV -Surgery consulting -Interventional radiology consulting, probable drain placement today -NPO Pt okay to transfer off of cardiac floor today to med/surg. Comment Review of Relevant I have reviewed the following items ho (where applicable) has been applied. Labs Laboratory Tests Test 05/22/16 09:10 05/22/16 09:20 05/23/16 04:20 White Blood Count 13.1x10^3/uL (4.0-11.0) 9.6x10^3/uL (4.0-11.0) Red Blood Count 5.71x10^6/uL (4.30-5.70) 4.99x10^6/uL (4.30-5.70) Hemoglobin 16.2g/dL (13.0-17.5) 14.1g/dL (13.0-17.5) Hematocrit 47.7% (39.0-53.0) 41.8% (39.0-53.0) Mean Corpuscular Volume 84fL (79-100) 84fL (79-100) Mean Corpuscular Hemoglobin 28pg (25-35) 28pg (25-35) Mean Corpuscular Hemoglobin Concent 34g/dL (31-37) 34g/dL (31-37) Red Cell Distribution Width 14.4% (11.5-14.5) 14.1% (11.5-14.5) Platelet Count 233x10^3/uL (140-400) 216x10^3/uL (140-400) Neutrophils (%) (Auto) 81% (31-73) 77% (31-73) Lymphocytes (%) (Auto) 8% (24-48) 11% (24-48) Monocytes (%) (Auto) 8% (0-9) 11% (0-9) Eosinophils (%) (Auto) 2% (0-3) 1% (0-3) Basophils (%) (Auto) 1% (0-3) 1% (0-3) Neutrophils # (Auto) 10.6x10^3uL (1.8-7.7) 7.4x10^3uL (1.8-7.7) Lymphocytes # (Auto) 1.1x10^3/uL (1.0-4.8) 1.0x10^3/uL (1.0-4.8) Monocytes # (Auto) 1.0x10^3/uL (0.0-1.1) 1.0x10^3/uL (0.0-1.1) Eosinophils # (Auto) 0.3x10^3/uL (0.0-0.7) 0.1x10^3/uL (0.0-0.7) Basophils # (Auto) 0.1x10^3/uL (0.0-0.2) 0.0x10^3/uL (0.0-0.2) Sodium Level 142mmol/L (136-145) 145mmol/L (136-145) Potassium Level 4.2mmol/L (3.5-5.1) 4.2mmol/L (3.5-5.1) Chloride Level 105mmol/L (98-107) 109mmol/L (98-107) Carbon Dioxide Level 27mmol/L (21-32) 27mmol/L (21-32) Anion Gap 10 (6-14) 9 (6-14) Blood Urea Nitrogen 20mg/dL (8-26) 19mg/dL (8-26) Creatinine 1.3mg/dL (0.7-1.3) 1.2mg/dL (0.7-1.3) Estimated GFR (Cockcroft-Gault) 58.0 63.6 BUN/Creatinine Ratio 15 (6-20) 16 (6-20) Glucose Level 115mg/dL (70-99) 106mg/dL (70-99) Calcium Level 9.5mg/dL (8.5-10.1) 8.7mg/dL (8.5-10.1) Total Bilirubin 1.4mg/dL (0.2-1.0) 1.2mg/dL (0.2-1.0) Aspartate Amino Transf (AST/SGOT) 22U/L (15-37) 20U/L (15-37) Alanine Aminotransferase (ALT/SGPT) 53U/L (16-63) 57U/L (16-63) Alkaline Phosphatase 53U/L (46-116) 46U/L (46-116) Total Protein 8.2g/dL (6.4-8.2) 6.8g/dL (6.4-8.2) Albumin 3.3g/dL (3.4-5.0) 2.8g/dL (3.4-5.0) Albumin/Globulin Ratio 0.7 (1.0-1.7) 0.7 (1.0-1.7) Lipase 229U/L (73-393) Ethyl Alcohol Level < 10mg/dL (0-10) Urine Collection Type Void Urine Color Yellow Urine Clarity Clear Urine pH 5.5 Urine Specific [place] 1.015 Urine Protein Negativemg/dL (NEG-TRACE) Urine Glucose (UA) Negativemg/dL (NEG) Urine Ketones (Stick) Negativemg/dL (NEG) Urine Blood Trace (NEG) Urine Nitrite Negative (NEG) Urine Bilirubin Negative (NEG) Urine Urobilinogen Dipstick 0.2mg/dL (0.2 mg/dL) Urine Leukocyte Esterase Negative (NEG) Urine RBC 0/HPF (0-2) Urine WBC 0/HPF (0-4) Urine Squamous Epithelial Cells Few/LPF Urine Bacteria 0/HPF (0-FEW) Urine Mucus Slight/LPF Urine Opiates Screen Neg (NEG) Urine Methadone Screen Neg (NEG) Urine Barbiturates Neg (NEG) Urine Phencyclidine Screen Neg (NEG) Urine Amphetamine/Methamphetamine Neg (NEG) Urine Benzodiazepines Screen Neg (NEG) Urine Cocaine Screen Neg (NEG) Urine Cannabinoids Screen Pos (NEG) Urine Ethyl Alcohol Neg (NEG) Medications Current Medications Sodium Chloride (Iv Sodium Chloride 0.9% 1000ml Bag) 1,000 ml @ 1,000 mls/hr 1X ONCE IV Last administered on 05/22/16 09:39; Start 05/22/16 at 09:45; Stop 05/22/16 at 10:44; Status DC Ondansetron HCl (Zofran) 4 mg 1X ONCE IV Last administered on 05/22/16 09:39 ; Start 05/22/16 at 09:45; Stop 05/22/16 at 09:46; Status DC Morphine Sulfate 5 mg 1X ONCE IV Last administered on 05/22/16 09:40; Start 05/22/16 at 09:45; Stop 05/22/16 at 09:46; Status DC Iohexol (Omnipaque 300 Mg/ml) 75 ml 1X ONCE IV Last administered on 05/22/16 10:19; Start 05/22/16 at 09:45; Stop 05/22/16 at 09:46; Status DC Info 1 each 1 each PRN DAILY PRN MC SEE COMMENTS; Start 05/22/16 at 10:00; Stop 05/24/16 at 09:59 Metronidazole 100 ml @ 100 mls/hr Q8HRS IV Last administered on 05/24/16 06: 03; Start 05/22/16 at 12:00 Ciprofloxacin Lactate 200 ml @ 200 mls/hr Q12HR IV Last administered on 21:18; Start 05/22/16 at 21:00 Ciprofloxacin Lactate (Cipro 400mg Premix) 200 ml @ 200 mls/hr 1X ONCE IV Last administered on 05/22/16 11:24; Start 05/22/16 at 11:15; Stop 05/22/16 at 12:14; Status DC Ondansetron HCl (Zofran) 4 mg PRN Q8HRS PRN IV NAUSEA/VOMITING Last administered on 05/22/16 21:22; Start 05/22/16 at 12:45; Stop 05/23/16 at 12:44 ; Status DC Hydromorphone HCl 1 mg 1 mg PRN Q3HRS PRN IV PAIN Last administered on 06:43; Start 05/22/16 at 12:45 Sodium Chloride 1,000 ml @ 125 mls/hr 1X ONCE IV Last administered on 14:06; Start 05/22/16 at 13:30; Stop 05/22/16 at 21:29; Status DC Metronidazole 100 ml @ 100 mls/hr Q8HRS IV ; Start 05/22/16 at 14:00; Status UNV Ciprofloxacin Lactate (Cipro 400mg Premix) 200 ml @ 200 mls/hr Q12HR IV ; Start 05/22/16 at 21:00; Status UNV Famotidine (Pepcid) 20 mg QHS IVP Last administered on 05/23/16 21:17; Start 05/22/16 at 21:00 Info (Do NOT chart on this placeholder) 1 each PRN 1X PRN MC SEE COMMENTS; Start 05/23/16 at 09:15; Status UNV Influenza Virus Vaccine Quadrival (Fluarix Quad 4772-1390 Syringe) 0.5 ml ONCE ONCE VAX IM ; Start 05/23/16 at 10:00; Stop 05/23/16 at 10:01; Status DC Ondansetron HCl 4 mg 4 mg PRN Q6HRS PRN IV NAUSEA/VOMITING Last administered on 05/24/16 06:02; Start 05/23/16 at 13:00 Dextrose/Sodium Chloride (Iv D5% - NS) 1,000 ml @ 100 mls/hr Q10H IV Last administered on 05/23/16 21:23; Start 05/23/16 at 18:30 Vitals/I & O Vital Sign - Last 24 Hours 05/23/16 05/23/16 05/23/16 05/23/16 10:41 12:55 13:54 15:38 Temp 97.9 98.1 97.9 98.1 Pulse 75 86 Resp 18 18 B/P 136/69 145/75 Pulse Ox 93 93 92 O2 Delivery Room Air Room Air Room Air Room Air 05/23/16 05/23/16 05/23/16 05/23/16 16:32 19:00 20:30 20:32 Temp 98.1 98.1 Pulse 78 Resp 18 16 B/P 158/78 Pulse Ox 92 94 94 O2 Delivery Room Air Room Air Room Air Room Air 05/23/16 05/23/16 05/24/16 05/24/16 23:15 23:49 03:10 03:39 Temp 98.9 97.9 98.9 97.9 Pulse 84 81 Resp 22 18 18 16 B/P 150/84 147/79 Pulse Ox 97 94 98 94 O2 Delivery Room Air Room Air Room Air Room Air 05/24/16 05/24/16 05/24/16 06:43 07:00 07:25 Temp 97.7 97.7 Pulse 80 Resp 16 18 18 B/P 150/79 Pulse Ox 94 94 94 O2 Delivery Room Air Room Air Room Air Intake and Output 05/23/16 05/23/16 05/24/16 15:00 23:00 07:00 Intake Total 200 ml 100 ml 1003 ml Output Total 450 ml Balance 200 ml 100 ml 553 ml VALENTÍN ROBLES MD May 24, 2016 09:09
[2016-05-24 09:17] LABS: BASO # 0.1 x10^3/uL (0.0-0.2); BASO % 1 % (0-3); EOS % 1 % (0-3); HEMATOCRIT 42.5 % (39.0-53.0); LYMPH # 0.9 x10^3/uL (1.0-4.8); LYMPH % 9 % (24-48); MEAN CORPUSCULAR HEMOGLOBIN 28 pg (25-35); MEAN CORPUSCULAR HGB CONC 33 g/dL (31-37); MEAN CORPUSCULAR VOLUME 85 fL (79-100); MONO % 9 % (0-9); NEUT % 81 % (31-73); PLATELET COUNT 226 x10^3/uL (140-400); RED BLOOD COUNT 4.97 x10^6/uL (4.30-5.70); RED CELL DISTRIBUTION WIDTH 14.1 % (11.5-14.5); WHITE BLOOD COUNT 9.7 x10^3/uL (4.0-11.0)
--- NOTE | 2016-05-24 09:41 | PDOC ---
Subjective: Subjective: Strained/attempted BM yesterday w/ severe lower abd pain. No stool, passing gas. Nausea is now bothersome, vomited yesterday. Pain is improved w/ meds. Objective: Vital Signs: Vital Signs Date Time Temp Pulse Resp B/P Pulse Ox O2 Delivery O2 Flow Rate FiO2 05/24/16 07:25 18 94 Room Air 05/24/16 07:00 97.7 80 150/79 97.7 Labs: Laboratory Tests Test 05/24/16 08:40 White Blood Count 9.7x10^3/uL Red Blood Count 4.97x10^6/uL Hemoglobin 14.0g/dL Hematocrit 42.5% Mean Corpuscular Volume 85fL Mean Corpuscular Hemoglobin 28pg Mean Corpuscular Hemoglobin Concent 33g/dL Red Cell Distribution Width 14.1% Platelet Count 226x10^3/uL Neutrophils (%) (Auto) 81% Lymphocytes (%) (Auto) 9% Monocytes (%) (Auto) 9% Eosinophils (%) (Auto) 1% Basophils (%) (Auto) 1% Neutrophils # (Auto) 7.8x10^3uL Lymphocytes # (Auto) 0.9x10^3/uL Monocytes # (Auto) 0.9x10^3/uL Eosinophils # (Auto) 0.1x10^3/uL Basophils # (Auto) 0.1x10^3/uL PE: GEN: NAD LUNGS: CTAB anteriorly HEART: RRR ABD: BS+, tenderness suprapubic > LLQ NEURO/PSYCH: A & O 3 A/P: LLQ pain w/ perforated diverticulitis (?abscess) -CT 05/22 -surgery following, on IV atbx, NPO -last colonoscopy 2014 -- Note plans for repeat CT tomorrow a.m. Will follow. MIRNA PALACIOS May 24, 2016 09:41
[2016-05-24 09:46] LABS: CALCIUM 8.8 mg/dL (8.5-10.1); CREATININE 1.2 mg/dL (0.7-1.3); GFR 63.6; POTASSIUM 4.3 mmol/L (3.5-5.1)
[2016-05-24 11:08] VITALS: BP 143/74
[2016-05-24] MEDS: IV DEXTROSE 5% - 0.9 % NACL 1,000 ML IV SCH ×2 (12:54→16:01)
[2016-05-24 15:00] VITALS: BP 138/79
[2016-05-24 19:00] VITALS: BP 144/88
[2016-05-24] MEDS: FAMOTIDINE 20 MG/2 ML VIAL IVP SCH (21:08)
[2016-05-24 23:00] VITALS: BP 157/84
[2016-05-25] VITALS (24 sets, daily range): BP systolic 135–161; BP diastolic 68–88
[2016-05-25] MEDS: HYDROMORPHONE 2 MG/ML VIAL. IV PRN ×7 (00:55→21:17)
[2016-05-25] MEDS: ONDANSETRON PF 4 MG/2 ML VIAL. IV PRN ×4 (00:55→19:45)
[2016-05-25] MEDS: IV DEXTROSE 5% - 0.9 % NACL 1,000 ML IV SCH ×3 (00:57→20:35)
[2016-05-25] MEDS: METRONIDAZOLE 500mg PREMIX 100 ML IV SCH ×3 (05:22→22:09)
[2016-05-25] MEDS ORDERED: CONTRAST GIVEN MC PRN (06:45)
[2016-05-25] MEDS ORDERED: IOHEXOL 240 MG/ML 50ML VIAL. PO ONE (06:45)
[2016-05-25] MEDS ORDERED: IOHEXOL 300 MG/ML 75 ML VIAL IV ONE ×2 (06:45→10:15)
[2016-05-25] MEDS: CIPROFLOXACIN 400MG PREMIX 200 ML IV SCH ×2 (08:42→20:34)
--- NOTE | 2016-05-25 09:56 | PDOC ---
Subjective: Subjective: Pain is better today, about 3/10. Ongoing nausea. Passing gas. Objective: Vital Signs: Vital Signs Date Time Temp Pulse Resp B/P Pulse Ox O2 Delivery O2 Flow Rate FiO2 05/25/16 08:41 16 Room Air 05/25/16 07:00 96.4 68 135/79 96 96.4 PE: GEN: NAD LUNGS: CTAB anteriorly HEART: RRR ABD: less suprapubic and LLQ tenderness NEURO/PSYCH: A & O 3 A/P: LLQ pain w/ perforated diverticulitis (?abscess) -CT 05/22 -surgery following, on IV atbx, NPO -last colonoscopy 2014 -- Await interval CT. MIRNA PALACIOS May 25, 2016 09:56
--- NOTE | 2016-05-25 10:55 | PDOC ---
PROGRESS NOTES Subjective Subjective Pt states pain improved, 3/10 on pain scale. States he is tolerating clear liquids and has been passing gas. Objective Objective Pt awake and alert. Abdomen soft, nondistended, and nontender to palpation this am. Vital Signs Date Time Temp Pulse Resp B/P Pulse Ox O2 Delivery O2 Flow Rate FiO2 05/25/16 08:41 16 Room Air 05/25/16 07:00 96.4 68 135/79 96 96.4 Intake and Output 05/25/16 07:00 Intake Total 10 ml Output Total 100 ml Balance -90 ml Intake Oral 10 ml Output Urine Total 100 ml # Voids 1 Assessment Assessment Problems Medical Problems: (1) Diverticulitis Status: Acute Plan Plan of Care Acute perfarated diverticulitis -CT: "Perforated sigmoid diverticulitis with associated small amount of pneumoperitoneum and extensive surrounding inflammatory stranding. There is also a 2.7 cm ill-defined fluid collection within this region. Short-term follow -up is recommended to exclude early abscess formation." -Repeat CT today to r/o abscess -WBC upon admission 13.1, 9.6 this am. Repeat ordered -Abx: Cipro IV -Surgery consulting -Interventional radiology consulting, probable drain placement today -Pt tolerating clear liquids without increased n/v Comment Review of Relevant I have reviewed the following items ho (where applicable) has been applied. Labs Laboratory Tests Test 05/24/16 08:40 White Blood Count 9.7x10^3/uL (4.0-11.0) Red Blood Count 4.97x10^6/uL (4.30-5.70) Hemoglobin 14.0g/dL (13.0-17.5) Hematocrit 42.5% (39.0-53.0) Mean Corpuscular Volume 85fL (79-100) Mean Corpuscular Hemoglobin 28pg (25-35) Mean Corpuscular Hemoglobin Concent 33g/dL (31-37) Red Cell Distribution Width 14.1% (11.5-14.5) Platelet Count 226x10^3/uL (140-400) Neutrophils (%) (Auto) 81% (31-73) Lymphocytes (%) (Auto) 9% (24-48) Monocytes (%) (Auto) 9% (0-9) Eosinophils (%) (Auto) 1% (0-3) Basophils (%) (Auto) 1% (0-3) Neutrophils # (Auto) 7.8x10^3uL (1.8-7.7) Lymphocytes # (Auto) 0.9x10^3/uL (1.0-4.8) Monocytes # (Auto) 0.9x10^3/uL (0.0-1.1) Eosinophils # (Auto) 0.1x10^3/uL (0.0-0.7) Basophils # (Auto) 0.1x10^3/uL (0.0-0.2) Sodium Level 144mmol/L (136-145) Potassium Level 4.3mmol/L (3.5-5.1) Chloride Level 108mmol/L (98-107) Carbon Dioxide Level 29mmol/L (21-32) Anion Gap 7 (6-14) Blood Urea Nitrogen 17mg/dL (8-26) Creatinine 1.2mg/dL (0.7-1.3) Estimated GFR (Cockcroft-Gault) 63.6 Glucose Level 120mg/dL (70-99) Calcium Level 8.8mg/dL (8.5-10.1) Medications Current Medications Sodium Chloride (Iv Sodium Chloride 0.9% 1000ml Bag) 1,000 ml @ 1,000 mls/hr 1X ONCE IV Last administered on 05/22/16 09:39; Start 05/22/16 at 09:45; Stop 05/22/16 at 10:44; Status DC Ondansetron HCl (Zofran) 4 mg 1X ONCE IV Last administered on 05/22/16 09:39 ; Start 05/22/16 at 09:45; Stop 05/22/16 at 09:46; Status DC Morphine Sulfate 5 mg 1X ONCE IV Last administered on 05/22/16 09:40; Start 05/22/16 at 09:45; Stop 05/22/16 at 09:46; Status DC Iohexol (Omnipaque 300 Mg/ml) 75 ml 1X ONCE IV Last administered on 05/22/16 10:19; Start 05/22/16 at 09:45; Stop 05/22/16 at 09:46; Status DC Info 1 each 1 each PRN DAILY PRN MC SEE COMMENTS; Start 05/22/16 at 10:00; Stop 05/24/16 at 09:59; Status DC Metronidazole 100 ml @ 100 mls/hr Q8HRS IV Last administered on 05/25/16 05:22 ; Start 05/22/16 at 12:00 Ciprofloxacin Lactate 200 ml @ 200 mls/hr Q12HR IV Last administered on 08:42; Start 05/22/16 at 21:00 Ciprofloxacin Lactate (Cipro 400mg Premix) 200 ml @ 200 mls/hr 1X ONCE IV Last administered on 05/22/16 11:24; Start 05/22/16 at 11:15; Stop 05/22/16 at 12:14; Status DC Ondansetron HCl (Zofran) 4 mg PRN Q8HRS PRN IV NAUSEA/VOMITING Last administered on 05/22/16 21:22; Start 05/22/16 at 12:45; Stop 05/23/16 at 12:44 ; Status DC Hydromorphone HCl 1 mg 1 mg PRN Q3HRS PRN IV PAIN Last administered on 08:41; Start 05/22/16 at 12:45 Sodium Chloride 1,000 ml @ 125 mls/hr 1X ONCE IV Last administered on 14:06; Start 05/22/16 at 13:30; Stop 05/22/16 at 21:29; Status DC Metronidazole 100 ml @ 100 mls/hr Q8HRS IV ; Start 05/22/16 at 14:00; Status UNV Ciprofloxacin Lactate (Cipro 400mg Premix) 200 ml @ 200 mls/hr Q12HR IV ; Start 05/22/16 at 21:00; Status UNV Famotidine (Pepcid) 20 mg QHS IVP Last administered on 05/24/16 21:08; Start 05/22/16 at 21:00 Info (Do NOT chart on this placeholder) 1 each PRN 1X PRN MC SEE COMMENTS; Start 05/23/16 at 09:15; Status UNV Influenza Virus Vaccine Quadrival (Fluarix Quad 1006-0661 Syringe) 0.5 ml ONCE ONCE VAX IM ; Start 05/23/16 at 10:00; Stop 05/23/16 at 10:01; Status DC Ondansetron HCl 4 mg 4 mg PRN Q6HRS PRN IV NAUSEA/VOMITING Last administered on 05/25/16 07:04; Start 05/23/16 at 13:00 Dextrose/Sodium Chloride (Iv D5% - NS) 1,000 ml @ 100 mls/hr Q10H IV Last administered on 05/24/16 16:01; Start 05/23/16 at 18:30 Iohexol (Omnipaque 300 Mg/ml) 75 ml 1X ONCE IV Last administered on 05/25/16 10:30; Start 05/25/16 at 06:45; Stop 05/25/16 at 06:46; Status DC Iohexol (Omnipaque 240 Mg/ml) 30 ml 1X ONCE PO ; Start 05/25/16 at 06:45; Stop 05/25/16 at 06:46; Status DC Info (Do NOT chart on this entry -- for MONITORING) 1 each PRN DAILY PRN MC SEE COMMENTS; Start 05/25/16 at 06:45; Stop 05/27/16 at 06:44 Iohexol (Omnipaque 300 Mg/ml) 75 ml 1X ONCE IV ; Start 05/25/16 at 10:15; Stop 05/25/16 at 10:16; Status DC Vitals/I & O Vital Sign - Last 24 Hours 05/24/16 05/24/16 05/24/16 05/24/16 11:08 11:22 14:58 15:00 Temp 98.2 98.2 Pulse 79 80 Resp 18 20 18 B/P 143/74 138/79 Pulse Ox 95 95 90 O2 Delivery Room Air Room Air Room Air 05/24/16 05/24/16 05/24/16 05/24/16 18:07 19:00 20:25 21:03 Temp 98.8 98.8 Pulse 82 Resp 18 B/P 144/88 Pulse Ox 93 O2 Delivery Room Air Room Air Room Air Room Air 05/24/16 05/25/16 05/25/16 05/25/16 23:00 00:55 03:00 05:24 Temp 97.9 97.8 97.9 97.8 Pulse 77 75 Resp 18 18 B/P 157/84 138/73 Pulse Ox 95 92 O2 Delivery BiPAP/CPAP Room Air Room Air Room Air 05/25/16 05/25/16 05/25/16 06:02 07:00 08:41 Temp 96.4 96.4 Pulse 68 Resp 18 16 B/P 135/79 Pulse Ox 96 O2 Delivery Room Air Room Air Room Air Intake and Output 05/24/16 05/24/16 05/25/16 15:00 23:00 07:00 Intake Total 10 ml Output Total 100 ml Balance -90 ml VALENTÍN ROBLES MD May 25, 2016 10:55
--- NOTE | 2016-05-25 12:12 | RAD ---
CT of the abdomen and pelvis with contrast, 05/25/2016: History: Diverticulitis Multidetector CT imaging was performed following an IV bolus injection of iodinated contrast material. No oral contrast material was administered as requested. Comparison is made to a study from 05/22/2016. Mild discoid atelectasis has developed in the left base. There is a calcified granuloma in the left base. No hepatic abnormality is identified. The gallbladder is surgically absent. The pancreas shows no abnormality. The spleen is of normal size. There is a small cyst in the posterior aspect of the left kidney. The kidneys show no evidence of obstruction. A coarse left adrenal calcification is probably due to remote hemorrhage. The aorta is unremarkable. No abdominal or pelvic adenopathy is seen. There are a few small scattered colonic diverticula. There is streaky inflammation in the paracolic fat adjacent to the proximal sigmoid colon. There is colonic mural thickening at this level. There are extraluminal gas collections in this region extending superiorly in the mesentery and into the retroperitoneum. There is a complex fluid collection within this area of inflammation along the posterior aspect of the proximal sigmoid which measures approximately 4.1 x 2.7 cm on the axial images. It has increased slightly in size since the previous study. It contains bubbles of gas. The appearance is that of a paracolic abscess. The bowel loops are not dilated. No significant free fluid is evident in the abdomen or pelvis. IMPRESSION: Perforated sigmoid diverticulitis with moderate ongoing paracolic inflammation and extraluminal gas. A small paracolic fluid collection at this level has increased slightly in size, compatible with a small abscess.
[2016-05-25] MEDS ORDERED: LIDOCAINE 1% / SOD BICARB 8.4% 20 ML VIAL. IJ ONE ×3 (13:23→14:15)
[2016-05-25] MEDS ORDERED: MIDAZOLAM HCL/PF 5 MG/5 ML VIAL ONE (13:43)
[2016-05-25] MEDS ORDERED: FENTANYL PF 250 MCG/5 ML VIAL. ONE (13:43)
[2016-05-25] MEDS ORDERED: FENTANYL PF 250 MCG/5 ML VIAL. IV ONE (14:15)
[2016-05-25] MEDS ORDERED: MIDAZOLAM HCL/PF 5 MG/5 ML VIAL IV ONE (14:15)
--- NOTE | 2016-05-25 14:44 | PDOC ---
MODERATE SEDATION ASSESSMENT RISKS/ALTERNATIVES Risks/Alternatives Risks and alternatives of this type of sedation and procedure discussed with: RISK/ALTERNATIVES: Patient H & P ON CHART H & P H & P on chart and reviewed for co-morbid conditions and appropriate labs. H&P ON CHART: Yes STATUS PREG STATUS ASSESSED: N/A MEDS/ALLERGIES REVIEWED Meds/Allergies Reviewed Medications and Allergies including time and route of recently administered narcotics and sedatives. MEDS/ALLERGIES REVIEWED: Yes ASA RATING ASA RATING: II AIRWAY ASSESSMENT Airway Assessment Airway patency, oral function limitations, presence of caps, crowns, dentures, partials, and ability to extend neck assessed. AIRWAY ASSESSMENT: Yes MALLAMPATI SCORE MALLAMPATI SCORE: III PRE-SEDATION ASSESSMENT PRE-SEDATION ASSESSMENT: Yes DEBORA KELLY MD May 25, 2016 14:44
--- NOTE | 2016-05-25 14:49 | PDOC ---
Exam News Analyst News Analyst Diogo Compliance Nurse Compliance Nurse Félix Bejarano Pre-Procedure Diagnosis Pre-Procedure Diagnosis Perforated sigmoid diverticulitis, with small perisigmoid abscess Post-Procedure Diagnosis Post-Procedure Diagnosis Same Procedure Performed Procedure Performed CT guided insertion of perisigmoid abscess drain Type of Anesthesia Type of Anesthesia Local + Mod sedation Estimated Blood Loss EBL: Trace Specimens Specimans 16 cc of thick, grossly purulent material aspirated---sample to micro for aerobic/anaerobic C&S Drain/Tubes Drains/Tubes 10F locking pigtail drain---to bulb suction Condition of Patient Condition of Patient Stable. No apparent complication. Disposition Disposition From IR/CT return to [facility]. F/u with General Surgery. Full report to follow. DEBORA KELLY MD May 25, 2016 14:49
--- NOTE | 2016-05-25 15:52 | PDOC ---
Provider Note Provider Note n/v through the night and this am. had persistent LLQ/lower abd pain afeb vss drowsy after his perc drainage abd soft nd tender in lower abd. no peritoneal signs a/p diverticultis with abscess. s/p perc drainage. cont npo, ivf, abx. d/w him and his that if he doesn't improve after perc drainage, he may require surgery. PRIETO NEWTON MD May 25, 2016 15:52
[2016-05-25] MEDS: FAMOTIDINE 20 MG/2 ML VIAL IVP SCH (20:34)
[2016-05-26] MEDS: HYDROMORPHONE 2 MG/ML VIAL. IV PRN ×8 (00:29→21:59)
[2016-05-26 03:00] VITALS: BP 146/78
[2016-05-26] MEDS: ONDANSETRON PF 4 MG/2 ML VIAL. IV PRN ×4 (03:29→21:59)
[2016-05-26 05:28] LABS: HEMATOCRIT 42.6 % (39.0-53.0); HEMOGLOBIN 14.2 g/dL (13.0-17.5); RED BLOOD COUNT 5.02 x10^6/uL (4.30-5.70); WHITE BLOOD COUNT 10.5 x10^3/uL (4.0-11.0)
[2016-05-26 05:42] LABS: CALCIUM 8.5 mg/dL (8.5-10.1); CREATININE 1.2 mg/dL (0.7-1.3); GFR 63.6; POTASSIUM 4.1 mmol/L (3.5-5.1)
[2016-05-26] MEDS: METRONIDAZOLE 500mg PREMIX 100 ML IV SCH ×4 (06:17→23:52)
[2016-05-26] MEDS: IV DEXTROSE 5% - 0.9 % NACL 1,000 ML IV SCH ×2 (06:18→16:30)
[2016-05-26 07:00] VITALS: BP 129/77
--- NOTE | 2016-05-26 07:43 | RAD ---
CT-guided abscess drain insertion Indication: 50-year-old male with perforated sigmoid diverticulitis, with a small perisigmoid abscess. Attempted percutaneous drainage has been requested by general surgeon. Anesthesia: 46 minutes moderate sedation was provided utilizing a total of 3 mg Versed and 150 mcg fentanyl, IV. The patient was appropriately monitored by a qualified independent observer throughout the time of moderate sedation. PQRS Compliance Statement: One or more of the following individualized dose reduction techniques was/were utilized for this CT examination or procedure: 1. Automated exposure control. 2. Adjustment of mA and/or kV according to patient size. 3. Iterative reconstruction technique. Procedure: Informed consent was obtained from the patient. He was placed supine on the CT scanner. Preliminary noncontrast CT images confirmed the previously described small fluid-containing perisigmoid abscess. A left anterior skin site suitable for CT-guided drain insertion was selected and marked. That area was prepped and draped in the usual sterile fashion. Using aseptic technique, local anesthesia, and CT guidance, a 19-gauge needle was successfully introduced into the small perisigmoid abscess cavity, taking care to avoid adjacent thickened sigmoid colon. The needle was then removed over a guidewire. The percutaneous tract was dilated and a 10 [place] locking pigtail drainage catheter was successfully coiled within the abscess. 16 cc of grossly purulent complex fluid was then aspirated, a sample of which was submitted to microbiology for aerobic and anaerobic culture and sensitivity. Completion CT images documented satisfactory position of the drainage catheter, with near complete collapse of the small abscess cavity. The abscess drain was then connected to bulb suction, and was secured at the skin exit site utilizing suture and sterile dressing. Patient tolerated the procedure well without apparent complication. Impression: Successful, uneventful CT-guided insertion of a 10 [place] locking pigtail perisigmoid abscess drainage catheter, as described.
--- NOTE | 2016-05-26 08:54 | PDOC ---
JESUS BASS [employer] MANAGER 05/26/16 0854: SURGICAL PROGRESS NOTE Subjective feeling a little better overall, although thinks more pain now due to drain placement(movement, at drain site) no nausea Vital Signs Vital Signs Date Time Temp Pulse Resp B/P Pulse Ox O2 Delivery O2 Flow Rate FiO2 05/26/16 07:00 97.5 73 18 129/77 93 Room Air 97.5 05/26/16 01:08 2.0 I&O Intake and Output 05/26/16 07:00 Intake Total 1750 ml Output Total 1370 ml Balance 380 ml Intake Oral 250 ml IV Total 1500 ml Output Urine Total 850 ml Emesis 500 ml Drainage Total 20 ml # Voids 2 General: Alert, Oriented X3, Cooperative, No acute distress Abdomen: Soft, Other (moderate TTP LLQ, drain in place, scant cloudy, bloody drainage) Labs Laboratory Tests Test 05/26/16 05:05 White Blood Count 10.5x10^3/uL (4.0-11.0) Red Blood Count 5.02x10^6/uL (4.30-5.70) Hemoglobin 14.2g/dL (13.0-17.5) Hematocrit 42.6% (39.0-53.0) Mean Corpuscular Volume 85fL (79-100) Mean Corpuscular Hemoglobin 28pg (25-35) Mean Corpuscular Hemoglobin Concent 33g/dL (31-37) Red Cell Distribution Width 14.0% (11.5-14.5) Platelet Count 241x10^3/uL (140-400) Sodium Level 144mmol/L (136-145) Potassium Level 4.1mmol/L (3.5-5.1) Chloride Level 109mmol/L (98-107) Carbon Dioxide Level 26mmol/L (21-32) Anion Gap 9 (6-14) Blood Urea Nitrogen 14mg/dL (8-26) Creatinine 1.2mg/dL (0.7-1.3) Estimated GFR (Cockcroft-Gault) 63.6 Glucose Level 142mg/dL (70-99) Calcium Level 8.5mg/dL (8.5-10.1) Laboratory Tests Test 05/26/16 05:05 White Blood Count 10.5x10^3/uL (4.0-11.0) Red Blood Count 5.02x10^6/uL (4.30-5.70) Hemoglobin 14.2g/dL (13.0-17.5) Hematocrit 42.6% (39.0-53.0) Mean Corpuscular Volume 85fL (79-100) Mean Corpuscular Hemoglobin 28pg (25-35) Mean Corpuscular Hemoglobin Concent 33g/dL (31-37) Red Cell Distribution Width 14.0% (11.5-14.5) Platelet Count 241x10^3/uL (140-400) Sodium Level 144mmol/L (136-145) Potassium Level 4.1mmol/L (3.5-5.1) Chloride Level 109mmol/L (98-107) Carbon Dioxide Level 26mmol/L (21-32) Anion Gap 9 (6-14) Blood Urea Nitrogen 14mg/dL (8-26) Creatinine 1.2mg/dL (0.7-1.3) Estimated GFR (Cockcroft-Gault) 63.6 Glucose Level 142mg/dL (70-99) Calcium Level 8.5mg/dL (8.5-10.1) Problem List Problems Medical Problems: (1) Diverticulitis Status: Acute Assessment/Plan perc drain continue NPO, iv abx, ivf labs stable, afebrile consider nutritional support--will defer to PCP may need to consider surgery if not significant improvement with drain placement Problems: PRIETO NEWTON MD 05/26/16 1033: SURGICAL PROGRESS NOTE Assessment/Plan addendum i saw and examined him. he thinks his pain is slightly improved now compared to before his drain. nausea still persists. he wants to avoid surgery if at all possible he thinks his pain now is primarily at the insertion site for his drain afeb vss wbc normal alert, appears better than yest abd soft nd tender at insertion site for drain but surrounding abdomen is less tender than on prior exam a/p acute diverticulitis with abscess. pod #1 from perc drain. cont npo, ivf abx. will add reglan and start tpn. if not considerably improved by next week, will consider surgical resection. d/w him and he is agreeable. Problems: JESUS [employer]ASS [employer] MANAGER May 26, 2016 08:54 PRIETO NEWTON MD May 26, 2016 10:33
[2016-05-26] MEDS: CIPROFLOXACIN 400MG PREMIX 200 ML IV SCH ×2 (09:35→20:33)
[2016-05-26 10:56] VITALS: BP 142/77
[2016-05-26] MEDS ORDERED: ENOXAPARIN 40 MG/0.4 ML DISP.SYRIN. SQ SCH (11:00)
--- NOTE | 2016-05-26 11:02 | PDOC ---
Subjective: Subjective: Pain around drain. Nausea. Objective: Objective: Per RN - minimal drainage, has nausea, wanting Dilaudid Q 3 hours. Vital Signs: Vital Signs Date Time Temp Pulse Resp B/P Pulse Ox O2 Delivery O2 Flow Rate FiO2 05/26/16 09:33 18 Room Air 05/26/16 07:00 97.5 73 129/77 93 97.5 05/26/16 01:08 2.0 Labs: Laboratory Tests Test 05/26/16 05:05 White Blood Count 10.5x10^3/uL Red Blood Count 5.02x10^6/uL Hemoglobin 14.2g/dL Hematocrit 42.6% Mean Corpuscular Volume 85fL Mean Corpuscular Hemoglobin 28pg Mean Corpuscular Hemoglobin Concent 33g/dL Red Cell Distribution Width 14.0% Platelet Count 241x10^3/uL Sodium Level 144mmol/L Potassium Level 4.1mmol/L Chloride Level 109mmol/L Carbon Dioxide Level 26mmol/L Anion Gap 9 Blood Urea Nitrogen 14mg/dL Creatinine 1.2mg/dL Estimated GFR (Cockcroft-Gault) 63.6 Glucose Level 142mg/dL Calcium Level 8.5mg/dL PE: GEN: NAD LUNGS: CTAB anteriorly HEART: RRR ABD: drain LLQ w/ a little output - bloody, LLQ tenderness - mostly around drain site NEURO/PSYCH: A & O 3 A/P: Diverticulitis w/ abscess -CTs 05/22, 05/25; s/p drain placement w/ IR 05/25 -surgery following, on IV atbx, NPO, WBC WNL -last colonoscopy 2014 -LLQ pain, nausea -has Reglan (just added), Zofran, Pepcid -- Plans to continue same w/ consideration for surgery next week if no improvement. MIRNA PALACIOS May 26, 2016 11:02
[2016-05-26 11:41] LABS: PHOSPHORUS 3.9 mg/dL (2.6-4.7)
[2016-05-26] MEDS: METOCLOPRAMIDE HCL 10 MG/2 ML VIAL. IV PRN ×2 (12:23→18:29)
--- NOTE | 2016-05-26 13:14 | PDOC ---
PROGRESS NOTES Subjective Subjective Pt awake and pleasant. C/o increased abdominal pain this am secondary to drain placement yesterday. Objective Objective Pt awake and alert. NAD. VSS. Afebrile. Lungs CTA bilat. Resp even and unlabored. Heart with RRR. No murmurs. Abdominal drain present. Vital Signs Date Time Temp Pulse Resp B/P Pulse Ox O2 Delivery O2 Flow Rate FiO2 05/26/16 12:22 20 Room Air 05/26/16 10:56 97.7 71 142/77 95 97.7 05/26/16 01:08 2.0 Intake and Output 05/26/16 07:00 Intake Total 1750 ml Output Total 1370 ml Balance 380 ml Intake Oral 250 ml IV Total 1500 ml Output Urine Total 850 ml Emesis 500 ml Drainage Total 20 ml # Voids 2 Assessment Assessment Problems Medical Problems: (1) Diverticulitis Status: Acute Plan Plan of Care Acute perfarated diverticulitis -CT: "Perforated sigmoid diverticulitis with associated small amount of pneumoperitoneum and extensive surrounding inflammatory stranding. There is also a 2.7 cm ill-defined fluid collection within this region. Short-term follow -up is recommended to exclude early abscess formation." -Repeat CT 05/25: Perforated sigmoid diverticulitis with moderate ongoing paracolic inflammation and extraluminal gas. A small paracolic fluid collection at this level has increased slightly in size, compatible with a small abscess. -Drain placed per interventional radiology, 17cc of pus removed -WBC upon admission 13.1, 10.5 this am. Repeat ordered -Abx: Cipro IV -Surgery consulting Following Surgery lead for Dc plans. Suspect repeat CT in 2d and then possible Dc home based on s/s. Comment Review of Relevant I have reviewed the following items ho (where applicable) has been applied. Labs Laboratory Tests Test 05/26/16 05:05 White Blood Count 10.5x10^3/uL (4.0-11.0) Red Blood Count 5.02x10^6/uL (4.30-5.70) Hemoglobin 14.2g/dL (13.0-17.5) Hematocrit 42.6% (39.0-53.0) Mean Corpuscular Volume 85fL (79-100) Mean Corpuscular Hemoglobin 28pg (25-35) Mean Corpuscular Hemoglobin Concent 33g/dL (31-37) Red Cell Distribution Width 14.0% (11.5-14.5) Platelet Count 241x10^3/uL (140-400) Sodium Level 144mmol/L (136-145) Potassium Level 4.1mmol/L (3.5-5.1) Chloride Level 109mmol/L (98-107) Carbon Dioxide Level 26mmol/L (21-32) Anion Gap 9 (6-14) Blood Urea Nitrogen 14mg/dL (8-26) Creatinine 1.2mg/dL (0.7-1.3) Estimated GFR (Cockcroft-Gault) 63.6 Glucose Level 142mg/dL (70-99) Calcium Level 8.5mg/dL (8.5-10.1) Phosphorus Level 3.9mg/dL (2.6-4.7) Magnesium Level 2.0mg/dL (1.8-2.4) Laboratory Tests Test 05/26/16 05:05 White Blood Count 10.5x10^3/uL (4.0-11.0) Red Blood Count 5.02x10^6/uL (4.30-5.70) Hemoglobin 14.2g/dL (13.0-17.5) Hematocrit 42.6% (39.0-53.0) Mean Corpuscular Volume 85fL (79-100) Mean Corpuscular Hemoglobin 28pg (25-35) Mean Corpuscular Hemoglobin Concent 33g/dL (31-37) Red Cell Distribution Width 14.0% (11.5-14.5) Platelet Count 241x10^3/uL (140-400) Sodium Level 144mmol/L (136-145) Potassium Level 4.1mmol/L (3.5-5.1) Chloride Level 109mmol/L (98-107) Carbon Dioxide Level 26mmol/L (21-32) Anion Gap 9 (6-14) Blood Urea Nitrogen 14mg/dL (8-26) Creatinine 1.2mg/dL (0.7-1.3) Estimated GFR (Cockcroft-Gault) 63.6 Glucose Level 142mg/dL (70-99) Calcium Level 8.5mg/dL (8.5-10.1) Phosphorus Level 3.9mg/dL (2.6-4.7) Magnesium Level 2.0mg/dL (1.8-2.4) Microbiology 05/25/16 Gram Stain - Final, Complete Medications Current Medications Sodium Chloride (Iv Sodium Chloride 0.9% 1000ml Bag) 1,000 ml @ 1,000 mls/hr 1X ONCE IV Last administered on 05/22/16 09:39; Start 05/22/16 at 09:45; Stop 05/22/16 at 10:44; Status DC Ondansetron HCl (Zofran) 4 mg 1X ONCE IV Last administered on 05/22/16 09:39 ; Start 05/22/16 at 09:45; Stop 05/22/16 at 09:46; Status DC Morphine Sulfate 5 mg 1X ONCE IV Last administered on 05/22/16 09:40; Start 05/22/16 at 09:45; Stop 05/22/16 at 09:46; Status DC Iohexol (Omnipaque 300 Mg/ml) 75 ml 1X ONCE IV Last administered on 05/22/16 10:19; Start 05/22/16 at 09:45; Stop 05/22/16 at 09:46; Status DC Info 1 each 1 each PRN DAILY PRN MC SEE COMMENTS; Start 05/22/16 at 10:00; Stop 05/24/16 at 09:59; Status DC Metronidazole 100 ml @ 100 mls/hr Q8HRS IV Last administered on 05/26/16 06:17 ; Start 05/22/16 at 12:00 Ciprofloxacin Lactate 200 ml @ 200 mls/hr Q12HR IV Last administered on 09:35; Start 05/22/16 at 21:00 Ciprofloxacin Lactate (Cipro 400mg Premix) 200 ml @ 200 mls/hr 1X ONCE IV Last administered on 05/22/16 11:24; Start 05/22/16 at 11:15; Stop 05/22/16 at 12:14; Status DC Ondansetron HCl (Zofran) 4 mg PRN Q8HRS PRN IV NAUSEA/VOMITING Last administered on 05/22/16 21:22; Start 05/22/16 at 12:45; Stop 05/23/16 at 12:44 ; Status DC Hydromorphone HCl 1 mg 1 mg PRN Q3HRS PRN IV PAIN Last administered on 12:22; Start 05/22/16 at 12:45 Sodium Chloride 1,000 ml @ 125 mls/hr 1X ONCE IV Last administered on 14:06; Start 05/22/16 at 13:30; Stop 05/22/16 at 21:29; Status DC Metronidazole 100 ml @ 100 mls/hr Q8HRS IV ; Start 05/22/16 at 14:00; Status UNV Ciprofloxacin Lactate (Cipro 400mg Premix) 200 ml @ 200 mls/hr Q12HR IV ; Start 05/22/16 at 21:00; Status UNV Famotidine (Pepcid) 20 mg QHS IVP Last administered on 05/25/16 20:34; Start at 21:00 Info (Do NOT chart on this placeholder) 1 each PRN 1X PRN MC SEE COMMENTS; Start 05/23/16 at 09:15; Status UNV Influenza Virus Vaccine Quadrival (Fluarix Quad 5074-0251 Syringe) 0.5 ml ONCE ONCE VAX IM ; Start 05/23/16 at 10:00; Stop 05/23/16 at 10:01; Status DC Ondansetron HCl 4 mg 4 mg PRN Q6HRS PRN IV NAUSEA/VOMITING Last administered on 05/26/16 09:34; Start 05/23/16 at 13:00 Dextrose/Sodium Chloride (Iv D5% - NS) 1,000 ml @ 100 mls/hr Q10H IV Last administered on 05/26/16 06:18; Start 05/23/16 at 18:30 Iohexol (Omnipaque 300 Mg/ml) 75 ml 1X ONCE IV Last administered on 05/25/16 10:30; Start 05/25/16 at 06:45; Stop 05/25/16 at 06:46; Status DC Iohexol (Omnipaque 240 Mg/ml) 30 ml 1X ONCE PO ; Start 05/25/16 at 06:45; Stop 05/25/16 at 06:46; Status DC Info (Do NOT chart on this entry -- for MONITORING) 1 each PRN DAILY PRN MC SEE COMMENTS; Start 05/25/16 at 06:45; Stop 05/27/16 at 06:44 Iohexol (Omnipaque 300 Mg/ml) 75 ml 1X ONCE IV ; Start 05/25/16 at 10:15; Stop 05/25/16 at 10:16; Status DC Lidocaine/Sodium Bicarbonate (Buffered Lidocaine 1%) 20 ml STK-MED ONCE IJ ; Start 05/25/16 at 13:23; Stop 05/25/16 at 13:24; Status DC Lidocaine/Sodium Bicarbonate (Buffered Lidocaine 1%) 20 ml STK-MED ONCE IJ ; Start 05/25/16 at 13:30; Stop 05/25/16 at 13:31; Status DC Midazolam HCl (Versed) 5 mg STK-MED ONCE .ROUTE ; Start 05/25/16 at 13:43; Stop 05/25/16 at 13:44; Status DC Fentanyl Citrate (Fentanyl 5ml Vial) 250 mcg STK-MED ONCE .ROUTE ; Start at 13:43; Stop 05/25/16 at 13:44; Status DC Lidocaine/Sodium Bicarbonate (Buffered Lidocaine 1%) 20 ml 1X ONCE IJ Last administered on 05/25/16 14:40; Start 05/25/16 at 14:15; Stop 05/25/16 at 14:16; Status DC Midazolam HCl (Versed) 2 mg 1X ONCE IV Last administered on 05/25/16 14:40; Start 05/25/16 at 14:15; Stop 05/25/16 at 14:16; Status DC Fentanyl Citrate (Fentanyl 5ml Vial) 100 mcg 1X ONCE IV Last administered on 14:40; Start 05/25/16 at 14:15; Stop 05/25/16 at 14:16; Status DC Enoxaparin Sodium (Lovenox 40mg Syringe) 40 mg Q24H SQ ; Start 05/26/16 at 11:00 Metoclopramide HCl (Reglan) 10 mg PRN Q6HRS PRN IV NAUSEA/VOMITING Last administered on 05/26/16 12:23; Start 05/26/16 at 10:45 Info 1 each PRN DAILY PRN MC SEE COMMENTS; Start 05/26/16 at 10:45 Vitals/I & O Vital Sign - Last 24 Hours 05/25/16 05/25/16 05/25/16 05/25/16 13:50 13:55 14:00 14:05 Pulse 69 70 68 73 Resp 22 22 20 20 Pulse Ox 97 97 97 97 O2 Delivery Nasal Cannula Nasal Cannula Nasal Cannula Nasal Cannula O2 Flow Rate 2.0 2.0 2.0 2.0 05/25/16 05/25/16 05/25/16 05/25/16 14:10 14:15 14:20 14:25 Pulse 74 72 66 67 Resp 20 14 18 13 Pulse Ox 97 96 97 97 O2 Delivery Nasal Cannula Nasal Cannula Nasal Cannula Nasal Cannula O2 Flow Rate 2.0 2.0 2.0 2.0 05/25/16 05/25/16 05/25/16 05/25/16 14:30 14:37 14:40 14:50 Temp 97.5 97.5 Pulse 71 70 75 Resp 13 14 14 16 B/P 143/68 Pulse Ox 96 96 95 94 O2 Delivery Nasal Cannula Nasal Cannula Room Air Room Air O2 Flow Rate 2.0 2.0 05/25/16 05/25/16 05/25/16 05/25/16 14:58 15:00 15:15 15:30 Temp 97.4 97.4 Pulse 77 68 67 Resp 18 18 B/P 154/77 151/80 143/81 Pulse Ox 94 95 92 O2 Delivery Room Air Room Air 05/25/16 05/25/16 05/25/16 05/25/16 15:45 16:15 16:45 17:45 Pulse 72 74 68 79 B/P 148/79 146/80 152/78 144/77 Pulse Ox 92 93 95 92 05/25/16 05/25/16 05/25/16 05/25/16 18:01 18:45 19:40 20:44 Temp 98.6 98.6 Pulse 72 77 Resp 18 18 B/P 148/72 155/79 Pulse Ox 92 94 O2 Delivery Room Air Room Air Room Air 05/25/16 05/25/16 05/26/16 05/26/16 21:17 23:00 00:29 01:08 Temp 99.0 99.0 Pulse 87 Resp 20 18 20 B/P 149/82 Pulse Ox 94 93 93 O2 Delivery Room Air Room Air BiPAP/CPAP O2 Flow Rate 2.0 2.0 05/26/16 05/26/16 05/26/16 05/26/16 03:00 03:29 04:00 06:23 Temp 98.1 98.1 Pulse 74 Resp 18 20 20 B/P 146/78 Pulse Ox 94 93 93 93 O2 Delivery Room Air Room Air Room Air 05/26/16 05/26/16 05/26/16 05/26/16 06:53 07:00 09:33 10:56 Temp 97.5 97.7 97.5 97.7 Pulse 73 71 Resp 18 18 18 18 B/P 129/77 142/77 Pulse Ox 93 95 O2 Delivery Room Air Room Air Room Air Room Air 05/26/16 12:22 Resp 20 O2 Delivery Room Air Intake and Output 05/25/16 05/25/16 05/26/16 15:00 23:00 07:00 Intake Total 1750 ml Output Total 500 ml 10 ml 860 ml Balance -500 ml -10 ml 890 ml VALENTÍN ROBLES MD May 26, 2016 13:14
[2016-05-26 15:00] VITALS: BP 138/75
[2016-05-26] MEDS: ENOXAPARIN 40 MG/0.4 ML DISP.SYRIN. SQ SCH ×2 (15:00→20:37)
[2016-05-26] MEDS: AA 3%/ELECTROLYTE-TPN SOLN/GLY 1,000 ML IV SCH (15:09)
[2016-05-26 19:00] VITALS: BP 134/69
[2016-05-26] MEDS: FAMOTIDINE 20 MG/2 ML VIAL IVP SCH (20:33)
[2016-05-26 23:00] VITALS: BP 143/79
[2016-05-27] VITALS (11 sets, daily range): BP systolic 132–165; BP diastolic 71–93
[2016-05-27] MEDS: HYDROMORPHONE 2 MG/ML VIAL. IV PRN ×7 (01:43→18:08)
[2016-05-27] MEDS: METOCLOPRAMIDE HCL 10 MG/2 ML VIAL. IV PRN ×2 (01:43→10:02)
[2016-05-27] MEDS: IV DEXTROSE 5% - 0.9 % NACL 1,000 ML IV SCH (06:16)
[2016-05-27] MEDS: METRONIDAZOLE 500mg PREMIX 100 ML IV SCH ×2 (06:17→14:14)
[2016-05-27] MEDS: ONDANSETRON PF 4 MG/2 ML VIAL. IV PRN (06:23)
[2016-05-27] MEDS: AA 3%/ELECTROLYTE-TPN SOLN/GLY 1,000 ML IV SCH ×2 (06:27→15:15)
[2016-05-27] MEDS: CIPROFLOXACIN 400MG PREMIX 200 ML IV SCH (08:36)
[2016-05-27] MEDS: ENOXAPARIN 40 MG/0.4 ML DISP.SYRIN. SQ SCH ×2 (08:40→21:10)
--- NOTE | 2016-05-27 09:17 | PDOC ---
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 05/27/16 0917: SURGICAL PROGRESS NOTE Subjective significant nausea pain is mildly improved, although still very tender when touched Vital Signs Vital Signs Date Time Temp Pulse Resp B/P Pulse Ox O2 Delivery O2 Flow Rate FiO2 05/27/16 07:32 Room Air 05/27/16 07:00 97.7 71 16 143/76 94 97.7 05/27/16 06:54 2.0 I&O Intake and Output 05/27/16 07:00 Intake Total 1360 ml Output Total 1175 ml Balance 185 ml IV Total 1360 ml Output Urine Total 1175 ml # Voids 1 General: Alert, Oriented X3, Cooperative, No acute distress Abdomen: Soft, Other (moderate TTP to LLQ, NIKITA small amount of drainage, stoolish in appearance) Labs Laboratory Tests Test 05/26/16 05:05 White Blood Count 10.5x10^3/uL (4.0-11.0) Red Blood Count 5.02x10^6/uL (4.30-5.70) Hemoglobin 14.2g/dL (13.0-17.5) Hematocrit 42.6% (39.0-53.0) Mean Corpuscular Volume 85fL (79-100) Mean Corpuscular Hemoglobin 28pg (25-35) Mean Corpuscular Hemoglobin Concent 33g/dL (31-37) Red Cell Distribution Width 14.0% (11.5-14.5) Platelet Count 241x10^3/uL (140-400) Sodium Level 144mmol/L (136-145) Potassium Level 4.1mmol/L (3.5-5.1) Chloride Level 109mmol/L (98-107) Carbon Dioxide Level 26mmol/L (21-32) Anion Gap 9 (6-14) Blood Urea Nitrogen 14mg/dL (8-26) Creatinine 1.2mg/dL (0.7-1.3) Estimated GFR (Cockcroft-Gault) 63.6 Glucose Level 142mg/dL (70-99) Calcium Level 8.5mg/dL (8.5-10.1) Phosphorus Level 3.9mg/dL (2.6-4.7) Magnesium Level 2.0mg/dL (1.8-2.4) Problem List Problems Medical Problems: (1) Diverticulitis Status: Acute Assessment/Plan exam similar to yesterday, afebrile continue abx, npo to get picc/tpn started today cbc pending d/w Dr Newton Problems: PRIETO NEWTON MD 05/27/16 1325: SURGICAL PROGRESS NOTE Assessment/Plan addendum i saw and examined him he continues to have significant pain and nausea despite days of abx, npo and perc drain. his pain is worse with movement and is severe enough at times he rates it as an 8. ros: no f/c PMH copd--gustavo, uses cpap afeb vss not toxic in appearance, no distress alert and oriented x 3 abd soft nd more tender just below umbilicus compared to yest nikita appears feculent a/p perf diverticulitis, with abscess. no sig improvement over the last 2 days. we discussed ongoing medical management with surgery next week if he doesn't improve vs. surgery today. he desires to have surgery today. i think this is reasonable. i would expect more improvement than we've seen if he was going to be able to recover without surgery. i doubt a few more days would change his need for surgical resection. plan for sigmoidectomy with poss loop ileostomy vs. poss end colostomy. the types of ostomies and rationale behind each ostomy was d/w him. risks of surgery including bleeding, infection, anastamotic leak, injury to intra-abd structures, ami, cva, dvt/pe, pneumonia and were d/w him. questions answered and he desires to proceed. Problems: JESUS BASS APRN May 27, 2016 09:17 PRIETO NEWTON MD May 27, 2016 13:25
[2016-05-27 09:19] LABS: BASO # 0.1 x10^3/uL (0.0-0.2); BASO % 1 % (0-3); EOS % 2 % (0-3); HEMATOCRIT 43.2 % (39.0-53.0); HEMOGLOBIN 14.7 g/dL (13.0-17.5); LYMPH # 1.2 x10^3/uL (1.0-4.8); LYMPH % 13 % (24-48); MEAN CORPUSCULAR HEMOGLOBIN 28 pg (25-35); MEAN CORPUSCULAR HGB CONC 34 g/dL (31-37); MEAN CORPUSCULAR VOLUME 83 fL (79-100); MONO % 7 % (0-9); NEUT % 77 % (31-73); PLATELET COUNT 259 x10^3/uL (140-400); RED BLOOD COUNT 5.19 x10^6/uL (4.30-5.70); RED CELL DISTRIBUTION WIDTH 13.8 % (11.5-14.5)
[2016-05-27 09:36] LABS: CALCIUM 8.6 mg/dL (8.5-10.1); CREATININE 1.2 mg/dL (0.7-1.3); GFR 63.6; POTASSIUM 3.8 mmol/L (3.5-5.1)
[2016-05-27 09:39] LABS: PHOSPHORUS 3.2 mg/dL (2.6-4.7)
--- NOTE | 2016-05-27 09:58 | PDOC ---
Subjective: Subjective: Feels about the same w/ pain and nausea. Objective: Vital Signs: Vital Signs Date Time Temp Pulse Resp B/P Pulse Ox O2 Delivery O2 Flow Rate FiO2 05/27/16 07:32 Room Air 05/27/16 07:00 97.7 71 16 143/76 94 97.7 05/27/16 06:54 2.0 Labs: Laboratory Tests Test 05/27/16 09:13 White Blood Count 9.0x10^3/uL Red Blood Count 5.19x10^6/uL Hemoglobin 14.7g/dL Hematocrit 43.2% Mean Corpuscular Volume 83fL Mean Corpuscular Hemoglobin 28pg Mean Corpuscular Hemoglobin Concent 34g/dL Red Cell Distribution Width 13.8% Platelet Count 259x10^3/uL Neutrophils (%) (Auto) 77% Lymphocytes (%) (Auto) 13% Monocytes (%) (Auto) 7% Eosinophils (%) (Auto) 2% Basophils (%) (Auto) 1% Neutrophils # (Auto) 6.9x10^3uL Lymphocytes # (Auto) 1.2x10^3/uL Monocytes # (Auto) 0.7x10^3/uL Eosinophils # (Auto) 0.2x10^3/uL Basophils # (Auto) 0.1x10^3/uL Sodium Level 141mmol/L Potassium Level 3.8mmol/L Chloride Level 105mmol/L Carbon Dioxide Level 28mmol/L Anion Gap 8 Blood Urea Nitrogen 16mg/dL Creatinine 1.2mg/dL Estimated GFR (Cockcroft-Gault) 63.6 Glucose Level 118mg/dL Calcium Level 8.6mg/dL Phosphorus Level 3.2mg/dL Magnesium Level 2.0mg/dL PE: GEN: NAD, quiet LUNGS: clear anteriorly HEART: RRR ABD: LLQ sore, drain w/ some brown liquid NEURO/PSYCH: A & O 3 A/P: Diverticulitis w/ abscess -CTs 05/22, 05/25; s/p drain placement w/ IR 05/25 -surgery following, on IV atbx, NPO on PPN w/ plans for PICC/TPN, WBC WNL -last colonoscopy 2014 -- Will follow. Continue per surgery. MIRNA PALACIOS May 27, 2016 09:58
--- NOTE | 2016-05-27 11:00 | PDOC ---
PROGRESS NOTES Subjective Subjective Pt awake and pleasant. C/o increased nausea and ongoing abdominal pain. Objective Objective Pt awake and alert. Pt appears uncomfortable at rest. VSS. Afebrile. Vital Signs Date Time Temp Pulse Resp B/P Pulse Ox O2 Delivery O2 Flow Rate FiO2 05/27/16 10:41 Room Air 05/27/16 07:00 97.7 71 16 143/76 94 97.7 05/27/16 06:54 2.0 Intake and Output 05/27/16 07:00 Intake Total 1360 ml Output Total 1175 ml Balance 185 ml IV Total 1360 ml Output Urine Total 1175 ml # Voids 1 Assessment Assessment Problems Medical Problems: (1) Diverticulitis Status: Acute Plan Plan of Care Acute perfarated diverticulitis -CT: "Perforated sigmoid diverticulitis with associated small amount of pneumoperitoneum and extensive surrounding inflammatory stranding. There is also a 2.7 cm ill-defined fluid collection within this region. Short-term follow -up is recommended to exclude early abscess formation." -Repeat CT 05/25: Perforated sigmoid diverticulitis with moderate ongoing paracolic inflammation and extraluminal gas. A small paracolic fluid collection at this level has increased slightly in size, compatible with a small abscess. -Drain placed per interventional radiology, 17cc of pus removed -WBC upon admission 13.1, 9 this am. Continues to trend down -Abx: Cipro IV -NPO on PPN. PICC ordered to begin TPN today. -Surgery consulting -GI consulting Following Surgery lead for Dc plans. Suspect repeat CT in 2d and then possible Dc home based on s/s. Comment Review of Relevant I have reviewed the following items ho (where applicable) has been applied. Labs Laboratory Tests Test 05/26/16 05:05 05/27/16 09:13 White Blood Count 10.5x10^3/uL (4.0-11.0) 9.0x10^3/uL (4.0-11.0) Red Blood Count 5.02x10^6/uL (4.30-5.70) 5.19x10^6/uL (4.30-5.70) Hemoglobin 14.2g/dL (13.0-17.5) 14.7g/dL (13.0-17.5) Hematocrit 42.6% (39.0-53.0) 43.2% (39.0-53.0) Mean Corpuscular Volume 85fL (79-100) 83fL (79-100) Mean Corpuscular Hemoglobin 28pg (25-35) 28pg (25-35) Mean Corpuscular Hemoglobin Concent 33g/dL (31-37) 34g/dL (31-37) Red Cell Distribution Width 14.0% (11.5-14.5) 13.8% (11.5-14.5) Platelet Count 241x10^3/uL (140-400) 259x10^3/uL (140-400) Sodium Level 144mmol/L (136-145) 141mmol/L (136-145) Potassium Level 4.1mmol/L (3.5-5.1) 3.8mmol/L (3.5-5.1) Chloride Level 109mmol/L (98-107) 105mmol/L (98-107) Carbon Dioxide Level 26mmol/L (21-32) 28mmol/L (21-32) Anion Gap 9 (6-14) 8 (6-14) Blood Urea Nitrogen 14mg/dL (8-26) 16mg/dL (8-26) Creatinine 1.2mg/dL (0.7-1.3) 1.2mg/dL (0.7-1.3) Estimated GFR (Cockcroft-Gault) 63.6 63.6 Glucose Level 142mg/dL (70-99) 118mg/dL (70-99) Calcium Level 8.5mg/dL (8.5-10.1) 8.6mg/dL (8.5-10.1) Phosphorus Level 3.9mg/dL (2.6-4.7) 3.2mg/dL (2.6-4.7) Magnesium Level 2.0mg/dL (1.8-2.4) 2.0mg/dL (1.8-2.4) Neutrophils (%) (Auto) 77% (31-73) Lymphocytes (%) (Auto) 13% (24-48) Monocytes (%) (Auto) 7% (0-9) Eosinophils (%) (Auto) 2% (0-3) Basophils (%) (Auto) 1% (0-3) Neutrophils # (Auto) 6.9x10^3uL (1.8-7.7) Lymphocytes # (Auto) 1.2x10^3/uL (1.0-4.8) Monocytes # (Auto) 0.7x10^3/uL (0.0-1.1) Eosinophils # (Auto) 0.2x10^3/uL (0.0-0.7) Basophils # (Auto) 0.1x10^3/uL (0.0-0.2) Laboratory Tests Test 05/27/16 09:13 White Blood Count 9.0x10^3/uL (4.0-11.0) Red Blood Count 5.19x10^6/uL (4.30-5.70) Hemoglobin 14.7g/dL (13.0-17.5) Hematocrit 43.2% (39.0-53.0) Mean Corpuscular Volume 83fL (79-100) Mean Corpuscular Hemoglobin 28pg (25-35) Mean Corpuscular Hemoglobin Concent 34g/dL (31-37) Red Cell Distribution Width 13.8% (11.5-14.5) Platelet Count 259x10^3/uL (140-400) Neutrophils (%) (Auto) 77% (31-73) Lymphocytes (%) (Auto) 13% (24-48) Monocytes (%) (Auto) 7% (0-9) Eosinophils (%) (Auto) 2% (0-3) Basophils (%) (Auto) 1% (0-3) Neutrophils # (Auto) 6.9x10^3uL (1.8-7.7) Lymphocytes # (Auto) 1.2x10^3/uL (1.0-4.8) Monocytes # (Auto) 0.7x10^3/uL (0.0-1.1) Eosinophils # (Auto) 0.2x10^3/uL (0.0-0.7) Basophils # (Auto) 0.1x10^3/uL (0.0-0.2) Sodium Level 141mmol/L (136-145) Potassium Level 3.8mmol/L (3.5-5.1) Chloride Level 105mmol/L (98-107) Carbon Dioxide Level 28mmol/L (21-32) Anion Gap 8 (6-14) Blood Urea Nitrogen 16mg/dL (8-26) Creatinine 1.2mg/dL (0.7-1.3) Estimated GFR (Cockcroft-Gault) 63.6 Glucose Level 118mg/dL (70-99) Calcium Level 8.6mg/dL (8.5-10.1) Phosphorus Level 3.2mg/dL (2.6-4.7) Magnesium Level 2.0mg/dL (1.8-2.4) Microbiology 05/25/16 Gram Stain - Final, Complete Medications Current Medications Sodium Chloride (Iv Sodium Chloride 0.9% 1000ml Bag) 1,000 ml @ 1,000 mls/hr 1X ONCE IV Last administered on 05/22/16 09:39; Start 05/22/16 at 09:45; Stop 05/22/16 at 10:44; Status DC Ondansetron HCl (Zofran) 4 mg 1X ONCE IV Last administered on 05/22/16 09:39 ; Start 05/22/16 at 09:45; Stop 05/22/16 at 09:46; Status DC Morphine Sulfate 5 mg 1X ONCE IV Last administered on 05/22/16 09:40; Start 05/22/16 at 09:45; Stop 05/22/16 at 09:46; Status DC Iohexol (Omnipaque 300 Mg/ml) 75 ml 1X ONCE IV Last administered on 05/22/16 10:19; Start 05/22/16 at 09:45; Stop 05/22/16 at 09:46; Status DC Info 1 each 1 each PRN DAILY PRN MC SEE COMMENTS; Start 05/22/16 at 10:00; Stop 05/24/16 at 09:59; Status DC Metronidazole 100 ml @ 100 mls/hr Q8HRS IV Last administered on 05/27/16 06:17 ; Start 05/22/16 at 12:00 Ciprofloxacin Lactate 200 ml @ 200 mls/hr Q12HR IV Last administered on 08:36; Start 05/22/16 at 21:00 Ciprofloxacin Lactate (Cipro 400mg Premix) 200 ml @ 200 mls/hr 1X ONCE IV Last administered on 05/22/16 11:24; Start 05/22/16 at 11:15; Stop 05/22/16 at 12:14; Status DC Ondansetron HCl (Zofran) 4 mg PRN Q8HRS PRN IV NAUSEA/VOMITING Last administered on 05/22/16 21:22; Start 05/22/16 at 12:45; Stop 05/23/16 at 12:44 ; Status DC Hydromorphone HCl 1 mg 1 mg PRN Q3HRS PRN IV PAIN Last administered on 10:02; Start 05/22/16 at 12:45 Sodium Chloride 1,000 ml @ 125 mls/hr 1X ONCE IV Last administered on 14:06; Start 05/22/16 at 13:30; Stop 05/22/16 at 21:29; Status DC Metronidazole 100 ml @ 100 mls/hr Q8HRS IV ; Start 05/22/16 at 14:00; Status UNV Ciprofloxacin Lactate (Cipro 400mg Premix) 200 ml @ 200 mls/hr Q12HR IV ; Start 05/22/16 at 21:00; Status UNV Famotidine (Pepcid) 20 mg QHS IVP Last administered on 05/26/16 20:33; Start at 21:00 Info (Do NOT chart on this placeholder) 1 each PRN 1X PRN MC SEE COMMENTS; Start 05/23/16 at 09:15; Status UNV Influenza Virus Vaccine Quadrival (Fluarix Quad 3608-8803 Syringe) 0.5 ml ONCE ONCE VAX IM ; Start 05/23/16 at 10:00; Stop 05/23/16 at 10:01; Status DC Ondansetron HCl 4 mg 4 mg PRN Q6HRS PRN IV NAUSEA/VOMITING Last administered on 05/27/16 06:23; Start 05/23/16 at 13:00 Dextrose/Sodium Chloride (Iv D5% - NS) 1,000 ml @ 100 mls/hr Q10H IV Last administered on 05/26/16 06:18; Start 05/23/16 at 18:30; Stop 05/27/16 at 07:08; Status DC Iohexol (Omnipaque 300 Mg/ml) 75 ml 1X ONCE IV Last administered on 05/25/16 10:30; Start 05/25/16 at 06:45; Stop 05/25/16 at 06:46; Status DC Iohexol (Omnipaque 240 Mg/ml) 30 ml 1X ONCE PO ; Start 05/25/16 at 06:45; Stop 05/25/16 at 06:46; Status DC Info (Do NOT chart on this entry -- for MONITORING) 1 each PRN DAILY PRN MC SEE COMMENTS; Start 05/25/16 at 06:45; Stop 05/27/16 at 06:44; Status DC Iohexol (Omnipaque 300 Mg/ml) 75 ml 1X ONCE IV ; Start 05/25/16 at 10:15; Stop 05/25/16 at 10:16; Status DC Lidocaine/Sodium Bicarbonate (Buffered Lidocaine 1%) 20 ml STK-MED ONCE IJ ; Start 05/25/16 at 13:23; Stop 05/25/16 at 13:24; Status DC Lidocaine/Sodium Bicarbonate (Buffered Lidocaine 1%) 20 ml STK-MED ONCE IJ ; Start 05/25/16 at 13:30; Stop 05/25/16 at 13:31; Status DC Midazolam HCl (Versed) 5 mg STK-MED ONCE .ROUTE ; Start 05/25/16 at 13:43; Stop 05/25/16 at 13:44; Status DC Fentanyl Citrate (Fentanyl 5ml Vial) 250 mcg STK-MED ONCE .ROUTE ; Start at 13:43; Stop 05/25/16 at 13:44; Status DC Lidocaine/Sodium Bicarbonate (Buffered Lidocaine 1%) 20 ml 1X ONCE IJ Last administered on 05/25/16 14:40; Start 05/25/16 at 14:15; Stop 05/25/16 at 14:16; Status DC Midazolam HCl (Versed) 2 mg 1X ONCE IV Last administered on 05/25/16 14:40; Start 05/25/16 at 14:15; Stop 05/25/16 at 14:16; Status DC Fentanyl Citrate (Fentanyl 5ml Vial) 100 mcg 1X ONCE IV Last administered on 14:40; Start 05/25/16 at 14:15; Stop 05/25/16 at 14:16; Status DC Enoxaparin Sodium (Lovenox 40mg Syringe) 40 mg Q24H SQ ; Start 05/26/16 at 11:00 ; Stop 05/26/16 at 14:07; Status DC Metoclopramide HCl (Reglan) 10 mg PRN Q6HRS PRN IV NAUSEA/VOMITING Last administered on 05/27/16 10:02; Start 05/26/16 at 10:45 Info 1 each 1 each PRN DAILY PRN MC SEE COMMENTS; Start 05/26/16 at 10:45 Amino Acids/ Glycerin/ Electrolytes (Procalamine) 1,000 ml @ 80 mls/hr [id number] IV Last administered on 05/26/16 15:09; Start 05/26/16 at 14:15; Stop 05/27/16 at 21:59 Enoxaparin Sodium (Lovenox 40mg Syringe) 40 mg Q12HR SQ Last administered on 08:40; Start 05/26/16 at 15:00 Vitals/I & O Vital Sign - Last 24 Hours 05/26/16 05/26/16 05/26/16 05/26/16 10:56 12:22 15:00 15:21 Temp 97.7 97.2 97.7 97.2 Pulse 71 76 Resp 18 20 18 18 B/P 142/77 138/75 Pulse Ox 95 94 O2 Delivery Room Air Room Air Room Air Room Air 05/26/16 05/26/16 05/26/16 05/26/16 18:30 19:00 19:15 21:59 Temp 98.4 98.4 Pulse 74 Resp 20 18 20 B/P 134/69 Pulse Ox 94 94 O2 Delivery Room Air BiPAP/CPAP Room Air BiPAP/CPAP O2 Flow Rate 2.0 05/26/16 05/27/16 05/27/16 05/27/16 23:00 01:43 03:00 06:23 Temp 97.5 98.4 97.5 98.4 Pulse 65 70 Resp 18 20 18 20 B/P 143/79 145/77 Pulse Ox 95 95 94 94 O2 Delivery BiPAP/CPAP BiPAP/CPAP BiPAP/CPAP Room Air O2 Flow Rate 2.0 05/27/16 05/27/16 05/27/16 05/27/16 06:54 07:00 07:32 10:02 Temp 97.7 97.7 Pulse 71 Resp 20 16 B/P 143/76 Pulse Ox 94 94 O2 Delivery Room Air Room Air Room Air O2 Flow Rate 2.0 05/27/16 10:41 O2 Delivery Room Air Intake and Output 05/26/16 05/26/16 05/27/16 15:00 23:00 07:00 Intake Total 1360 ml Output Total 800 ml 375 ml Balance -800 ml 985 ml VALENTÍN ROBLES MD May 27, 2016 11:00
[2016-05-27] MEDS ORDERED: IV RINGERS,LACTATED 1000ML 1,000 ML IV SCH (11:42)
[2016-05-27] MEDS ORDERED: LIDOCAINE 1% 1 ML SYRINGE. ID PRN (11:45)
[2016-05-27] MEDS ORDERED: FENTANYL PF 100 MCG/2 ML VIAL. IV PRN (11:45)
[2016-05-27] MEDS ORDERED: MORPHINE SULFATE 2 MG/ML DISP.SYRIN. IV PRN (11:45)
--- NOTE | 2016-05-27 12:08 | RAD ---
Exam performed: One view chest Indication: picc placement Date of Service:05/27/2016 1:40 PM . Comparison : 2 view chest from 05/20/09. Single AP upright portable view chest findings: There is placement of a right arm PICC line, the tip is seen probably at the proximal superior vena cava. This may be advanced approximately 4 to 5 cm for appropriate positioning at the atriocaval junction. The lungs are clear. No pneumothorax The visualized osseous structures are unremarkable. Impression: Placement of a right arm PICC line. Repositioning recommended as outlined above.
[2016-05-27] MEDS: TPN PER PHARMACY MC PRN (12:41)
[2016-05-27] MEDS ORDERED: DEXAMETHASONE SOD PHOS 20 MG/5 ML VIAL. ONE (13:13)
[2016-05-27] MEDS ORDERED: ONDANSETRON PF 4 MG/2 ML VIAL. ONE (13:13)
[2016-05-27] MEDS ORDERED: PROPOFOL 20 ML IV ONE (13:13)
[2016-05-27] MEDS ORDERED: FAMOTIDINE 20 MG/2 ML VIAL ONE (13:13)
[2016-05-27] MEDS ORDERED: ROCURONIUM 50 MG/5 ML VIAL. ONE (13:13)
[2016-05-27] MEDS ORDERED: LIDOCAINE 2% 100 MG/5 ML DISP.SYRIN. ONE ×2 (13:13→16:51)
[2016-05-27] MEDS ORDERED: FENTANYL PF 100 MCG/2 ML VIAL. ONE ×2 (13:13→13:55)
[2016-05-27] MEDS ORDERED: CEFOXITIN 2GM IVPB FOR OMNI 100 ML IV ONE ×2 (13:20→13:30)
[2016-05-27] MEDS ORDERED: SUCCINYLCHOLINE 200 MG/10 ML VIAL. ONE (13:21)
[2016-05-27] MEDS ORDERED: VECURONIUM BOLUS 10 MG VIAL. IV ONE (14:57)
[2016-05-27] MEDS ORDERED: MORPHINE SULFATE 10 MG/ML VIAL. ONE (15:01)
[2016-05-27] MEDS ORDERED: NEOSTIGMINE METHYLSULFATE 5 MG/5 ML SYRINGE. ONE (15:30)
[2016-05-27] MEDS ORDERED: GLYCOPYRROLATE 1 MG/5 ML VIAL. ONE (15:30)
[2016-05-27] MEDS ORDERED: DESFLURANE > 120 MINUTES IH ONE (15:47)
[2016-05-27] MEDS ORDERED: 0.9 % SODIUM CHLORIDE 10 ML DISP.SYRIN. IV PRN ×3 (16:00→16:15)
--- NOTE | 2016-05-27 16:12 | PDOC ---
BRIEF OPERATIVE NOTE Pre-Op Diagnosis perf diverticulitis with abscess sigmoidectomy with colorectal anastamosis rigid proctoscopy geta ebl 100 ivf 200 uop 300 ml josh well to rr stable. #[id number] PRIETO NEWTON MD May 27, 2016 16:12
[2016-05-27] MEDS: FENTANYL PF 100 MCG/2 ML VIAL. IV PRN ×2 (16:23→16:35)
[2016-05-27] MEDS ORDERED: LIDOCAINE 2% 100 MG/5 ML DISP.SYRIN. IV ONE (16:52)
--- NOTE | 2016-05-27 17:18 | EKG ---
[facility] [address] [place] [address] Test Date: 2016-05-27 Test Time: 17:23:41 Pat Name: KARIS SOTELO Department: Room: 410 Gender: M Campus Supervisor: : [id number] Requested By: MARLENE GORMAN Order Number: [id number] Reading MD: Measurements Intervals [place] Rate: 95 P: 43 DE: 136 QRS: 13 QRSD: 88 T: 22 QT: 330 QTc: 418 Interpretive Statements SINUS RHYTHM COMPLEX(ES) WITH ABERRANT INTRAVENTRICULAR CONDUCTION ABNORMAL ECG RI6.01 No previous ECG available for comparison
[2016-05-27] MEDS: HYDROMORPHONE STANDARD PCA 30 ML IV PRN (17:46)
[2016-05-27 17:54] LABS: CALCIUM 8.9 mg/dL (8.5-10.1); CREATININE 1.3 mg/dL (0.7-1.3); MAGNESIUM 1.9 mg/dL (1.8-2.4); POTASSIUM 4.2 mmol/L (3.5-5.1)
--- NOTE | 2016-05-27 18:45 | RAD ---
PROCEDURE Single-view chest. HISTORY PICC, patient having ectopy COMPARISON None FINDINGS AP supine portable view of the chest is submitted. There is right upper extremity PICC which terminates in the right atrium. There is superior right paratracheal opacity bilaterally. There is no pneumothorax or dependent pleural fluid. Heart size is within normal limits given technique. IMPRESSION 1. Right upper extremity PICC tip terminates in the right atrium. 2. There is superior paratracheal opacity bilaterally, underlying lymphadenopathy not excluded. Electronically signed by: Joshua No MD (May 27, 2016 18:44:07)
--- NOTE | 2016-05-27 19:36 | RAD ---
Chest AP only Indication: PICC line adjustment. Time of exam 7:19 p.m. Correlation is made with prior chest from earlier the same day. The PICC line continues to be abnormally located deep within the right atrium, near the right atrial right ventricular junction. This could likely be pulled back 7-8 centimeters. Reposition and repeat chest x-ray is recommended. There are congestive changes both lungs. The heart is enlarged. Impression: Malpositioned PICC line, as described. Electronically signed by: Branden Aguilera MD (May 27, 2016 19:35:22)
[2016-05-27] MEDS: SENNOSIDES/DOCUSATE 8.6/50MG TABLET. PO SCH (19:56)
--- NOTE | 2016-05-27 20:33 | OP ---
DATE OF SURGERY: 05/27/2016 PREOPERATIVE DIAGNOSIS: Perforated diverticulitis with abscess. POSTOPERATIVE DIAGNOSIS: Perforated diverticulitis with abscess. PROCEDURE: 1. Sigmoidectomy. 2. Colorectal anastomosis. 3. Rigid proctoscopy SURGEON: Prieto Newton M.D. COMPOSITION BOARD PRESS OPERATOR: Junito Velazquez MD ANESTHESIA: General. ESTIMATED BLOOD LOSS: 100 mL. IV FLUIDS: 200 mL. URINE OUTPUT: 300 mL. INDICATIONS: The patient is a 50-year-old male who came in last week with perforated diverticulitis. He developed an abscess which was drained percutaneously, but despite his antibiotics, n.p.o. status and his perc drain, he did not improve. We discussed ongoing medical management versus operative approach. He desired to undergo operative approach since he had really not shown much improvement over the last couple of days. FINDINGS: He had a very localized segment of diverticulitis. There was no spillage and the abscess was contained within the mesentery. There was no purulence throughout the abdomen. There was no evidence of peritonitis. A primary anastomosis was performed. PROCEDURE IN DETAIL: After informed consent was obtained, the patient was taken to the operating room and placed in supine position. After adequate induction of general anesthesia, he was placed in modified lithotomy. He was then prepped and draped in usual sterile fashion. He was given cefoxitin and Flagyl IV and he had been on ongoing antibiotics. Low midline incision was made with a scalpel, subcutaneous tissues with cautery. Fascia was opened in the midline with cautery. The peritoneum was opened sharply and then along my finger, the peritoneum was opened along the length of the incision. There were no adhesions to anterior abdominal wall. The mesh from the umbilical hernia was visible, but it was covered with peritoneum. The patient had a localized finding in the sigmoid of a firm, indurated area with an abscess within the mesentery, but there was no peritonitis, there was no free fluid, there was no pus or feculent material throughout the abdomen. At this point, decision was made to perform sigmoid resection with primary anastomosis and the white line of Toldt was mobilized along the sigmoid colon with cautery and then the distal descending colon was divided with a [id number] stapler. The mesentery was then taken down both with clamping, cutting and ligating as well as with the LigaSure impact until the taenia laid out on to the rectum. The proximal rectum was then divided with the Contour cutting stapler. The specimen was marked with a stitch distal and sent to pathology for examination. The abdomen was irrigated. What remained within the abdomen after the sigmoid resection was normal appearing bowel. At this point, a primary anastomosis was performed in a handsewn fashion end to end. The bowel was cleared of overlying fatty tissue and then interrupted Lembert sutures in seromuscular fascia were placed in the posterior wall of the anastomosis. The staple lines were then cut off sharply and then using 2-0 Vicryl sutures in a running fashion. Then, inner layer of the anastomosis was performed using a full thickness running suture x 2 and finally the outer layer was then oversewn with 2-0 Vicryl sutures in interrupted fashion. The anastomosis appeared healthy. It was without tension. There was good blood supply and pulses in the mesentery leading to the anastomosis. The anastomosis was then tested. A rigid proctoscopy was performed. The rectum was insufflated with the proximal descending colon occluded with a Kailash clamp and the pelvis was filled with irrigation. There was no bubbling of air through the anastomosis. The anastomosis was airtight. It was manipulated underneath the irrigation and remained airtight. The air was then evacuated through the proctoscope and Kailash removed. The irrigation fluid was then evacuated with the suction. The area was all hemostatic. The instruments removed. The operative team changed their gown and gloves and then the fascia was closed. Fascial closure at this point was done with instruments and sutures that were brought onto the field that had been kept sterile and untouched during the rest of the procedure. The abdomen was squared out with sterile blue towels and the fascia was closed with #1 looped PDS starting at the apices meeting in the middle. Subcutaneous tissue was irrigated and then closed with martita loosely followed by Telfa aly. He tolerated the procedure well. There were no apparent complications. He was then transferred in stable condition to the recovery room. PRIETO NEWTON MD DR: ANDRY/lisa JOB#: [id number] / [id number] KATE
--- NOTE | 2016-05-27 20:51 | RAD ---
PROCEDURE Single-view chest. HISTORY Readjusted PICC COMPARISON Exam earlier this same day FINDINGS AP supine portable view of the chest is submitted. Previously seen right upper extremity PICC has been slightly retracted, tip now at the level of the cavoatrial junction. Central pulmonary vasculature is again prominent. There is again superior paratracheal opacity bilaterally. IMPRESSION Right upper extremity PICC tip now terminates near the level of the cavoatrial junction. There is again superior paratracheal opacity bilaterally. Electronically signed by: Joshua No MD (May 27, 2016 20:49:23)
[2016-05-27] MEDS: FAMOTIDINE 20 MG/2 ML VIAL IVP SCH (21:09)
[2016-05-27] MEDS: CEFOXITIN SODIUM 2 GM in IV NORMAL SALINE 100ML 100 ML IV SCH (21:10)
[2016-05-27] MEDS ORDERED: TOTAL PARENTERAL NUTRITION 1,424.9987 ML, AMINO ACIDS 10 % 60 GM, DEXTROSE 70 % IN WATE... IV SCH ×10 (22:00)
[2016-05-28] VITALS (24 sets, daily range): BP systolic 119–167; BP diastolic 72–87
[2016-05-28] MEDS: CEFOXITIN SODIUM 2 GM in IV NORMAL SALINE 100ML 100 ML IV SCH ×2 (02:16→08:02)
[2016-05-28] MEDS: HYDROMORPHONE STANDARD PCA 30 ML IV PRN ×3 (02:18→18:30)
[2016-05-28] MEDS: METOCLOPRAMIDE HCL 10 MG/2 ML VIAL. IV PRN ×3 (07:25→22:04)
[2016-05-28 07:33] LABS: CALCIUM 8.9 mg/dL (8.5-10.1); CREATININE 1.3 mg/dL (0.7-1.3); MAGNESIUM 2.1 mg/dL (1.8-2.4); PHOSPHORUS 3.5 mg/dL (2.6-4.7); POTASSIUM 4.7 mmol/L (3.5-5.1)
[2016-05-28 07:40] LABS: BASO % 0 % (0-3); EOS % 0 % (0-3); HEMATOCRIT 46.5 % (39.0-53.0); HEMOGLOBIN 15.3 g/dL (13.0-17.5); LYMPH # 0.9 x10^3/uL (1.0-4.8); LYMPH % 8 % (24-48); MEAN CORPUSCULAR HEMOGLOBIN 28 pg (25-35); MEAN CORPUSCULAR HGB CONC 33 g/dL (31-37); MEAN CORPUSCULAR VOLUME 85 fL (79-100); MONO % 13 % (0-9); NEUT % 79 % (31-73); PLATELET COUNT 257 x10^3/uL (140-400); RED BLOOD COUNT 5.47 x10^6/uL (4.30-5.70); RED CELL DISTRIBUTION WIDTH 13.7 % (11.5-14.5); WHITE BLOOD COUNT 12.1 x10^3/uL (4.0-11.0)
--- NOTE | 2016-05-28 08:37 | PDOC ---
G I PROGRESS NOTE Subjective "Sore". Thinks he feels some "gurgling". Objective OP note reviewed. Physical Exam Lungs clear. RRR Abdomen soft, not distended. Incisional tenderness. Don't hear any bowel sounds. Review of Relevant I have reviewed the following items ho (where applicable) has been applied. Labs Laboratory Tests Test 05/27/16 09:13 05/27/16 17:20 05/28/16 07:05 White Blood Count 9.0x10^3/uL (4.0-11.0) 12.1x10^3/uL (4.0-11.0) Red Blood Count 5.19x10^6/uL (4.30-5.70) 5.47x10^6/uL (4.30-5.70) Hemoglobin 14.7g/dL (13.0-17.5) 15.3g/dL (13.0-17.5) Hematocrit 43.2% (39.0-53.0) 46.5% (39.0-53.0) Mean Corpuscular Volume 83fL (79-100) 85fL (79-100) Mean Corpuscular Hemoglobin 28pg (25-35) 28pg (25-35) Mean Corpuscular Hemoglobin Concent 34g/dL (31-37) 33g/dL (31-37) Red Cell Distribution Width 13.8% (11.5-14.5) 13.7% (11.5-14.5) Platelet Count 259x10^3/uL (140-400) 257x10^3/uL (140-400) Neutrophils (%) (Auto) 77% (31-73) 79% (31-73) Lymphocytes (%) (Auto) 13% (24-48) 8% (24-48) Monocytes (%) (Auto) 7% (0-9) 13% (0-9) Eosinophils (%) (Auto) 2% (0-3) 0% (0-3) Basophils (%) (Auto) 1% (0-3) 0% (0-3) Neutrophils # (Auto) 6.9x10^3uL (1.8-7.7) 9.6x10^3uL (1.8-7.7) Lymphocytes # (Auto) 1.2x10^3/uL (1.0-4.8) 0.9x10^3/uL (1.0-4.8) Monocytes # (Auto) 0.7x10^3/uL (0.0-1.1) 1.5x10^3/uL (0.0-1.1) Eosinophils # (Auto) 0.2x10^3/uL (0.0-0.7) 0.0x10^3/uL (0.0-0.7) Basophils # (Auto) 0.1x10^3/uL (0.0-0.2) 0.0x10^3/uL (0.0-0.2) Sodium Level 141mmol/L (136-145) 143mmol/L (136-145) 142mmol/L (136-145) Potassium Level 3.8mmol/L (3.5-5.1) 4.2mmol/L (3.5-5.1) 4.7mmol/L (3.5-5.1) Chloride Level 105mmol/L (98-107) 106mmol/L (98-107) 107mmol/L (98-107) Carbon Dioxide Level 28mmol/L (21-32) 25mmol/L (21-32) 28mmol/L (21-32) Anion Gap 8 (6-14) 12 (6-14) 7 (6-14) Blood Urea Nitrogen 16mg/dL (8-26) 19mg/dL (8-26) 17mg/dL (8-26) Creatinine 1.2mg/dL (0.7-1.3) 1.3mg/dL (0.7-1.3) 1.3mg/dL (0.7-1.3) Estimated GFR (Cockcroft-Gault) 63.6 58.0 58.0 Glucose Level 118mg/dL (70-99) 147mg/dL (70-99) 139mg/dL (70-99) Calcium Level 8.6mg/dL (8.5-10.1) 8.9mg/dL (8.5-10.1) 8.9mg/dL (8.5-10.1) Phosphorus Level 3.2mg/dL (2.6-4.7) 3.5mg/dL (2.6-4.7) Magnesium Level 2.0mg/dL (1.8-2.4) 1.9mg/dL (1.8-2.4) 2.1mg/dL (1.8-2.4) Triglycerides Level 77mg/dL (0-150) Laboratory Tests Test 05/27/16 09:13 05/27/16 17:20 05/28/16 07:05 White Blood Count 9.0x10^3/uL (4.0-11.0) 12.1x10^3/uL (4.0-11.0) Red Blood Count 5.19x10^6/uL (4.30-5.70) 5.47x10^6/uL (4.30-5.70) Hemoglobin 14.7g/dL (13.0-17.5) 15.3g/dL (13.0-17.5) Hematocrit 43.2% (39.0-53.0) 46.5% (39.0-53.0) Mean Corpuscular Volume 83fL (79-100) 85fL (79-100) Mean Corpuscular Hemoglobin 28pg (25-35) 28pg (25-35) Mean Corpuscular Hemoglobin Concent 34g/dL (31-37) 33g/dL (31-37) Red Cell Distribution Width 13.8% (11.5-14.5) 13.7% (11.5-14.5) Platelet Count 259x10^3/uL (140-400) 257x10^3/uL (140-400) Neutrophils (%) (Auto) 77% (31-73) 79% (31-73) Lymphocytes (%) (Auto) 13% (24-48) 8% (24-48) Monocytes (%) (Auto) 7% (0-9) 13% (0-9) Eosinophils (%) (Auto) 2% (0-3) 0% (0-3) Basophils (%) (Auto) 1% (0-3) 0% (0-3) Neutrophils # (Auto) 6.9x10^3uL (1.8-7.7) 9.6x10^3uL (1.8-7.7) Lymphocytes # (Auto) 1.2x10^3/uL (1.0-4.8) 0.9x10^3/uL (1.0-4.8) Monocytes # (Auto) 0.7x10^3/uL (0.0-1.1) 1.5x10^3/uL (0.0-1.1) Eosinophils # (Auto) 0.2x10^3/uL (0.0-0.7) 0.0x10^3/uL (0.0-0.7) Basophils # (Auto) 0.1x10^3/uL (0.0-0.2) 0.0x10^3/uL (0.0-0.2) Sodium Level 141mmol/L (136-145) 143mmol/L (136-145) 142mmol/L (136-145) Potassium Level 3.8mmol/L (3.5-5.1) 4.2mmol/L (3.5-5.1) 4.7mmol/L (3.5-5.1) Chloride Level 105mmol/L (98-107) 106mmol/L (98-107) 107mmol/L (98-107) Carbon Dioxide Level 28mmol/L (21-32) 25mmol/L (21-32) 28mmol/L (21-32) Anion Gap 8 (6-14) 12 (6-14) 7 (6-14) Blood Urea Nitrogen 16mg/dL (8-26) 19mg/dL (8-26) 17mg/dL (8-26) Creatinine 1.2mg/dL (0.7-1.3) 1.3mg/dL (0.7-1.3) 1.3mg/dL (0.7-1.3) Estimated GFR (Cockcroft-Gault) 63.6 58.0 58.0 Glucose Level 118mg/dL (70-99) 147mg/dL (70-99) 139mg/dL (70-99) Calcium Level 8.6mg/dL (8.5-10.1) 8.9mg/dL (8.5-10.1) 8.9mg/dL (8.5-10.1) Phosphorus Level 3.2mg/dL (2.6-4.7) 3.5mg/dL (2.6-4.7) Magnesium Level 2.0mg/dL (1.8-2.4) 1.9mg/dL (1.8-2.4) 2.1mg/dL (1.8-2.4) Triglycerides Level 77mg/dL (0-150) Microbiology 05/25/16 Gram Stain - Final, Complete 05/25/16 Anaerobic/Aerobic Culture, Resulted Pending 05/25/16 Anaerobic Culture Result 1 (OSORIO), Resulted Pending 05/25/16 Aerobic Culture - Preliminary, Resulted 05/25/16 Aerobic Culture Result 1 (OSORIO) - Preliminary, Resulted 05/25/16 Aerobic Culture Result 2 (OSORIO) - Preliminary, Resulted 05/25/16 Aerobic Culture Result 3 (OSORIO) - Preliminary, Resulted Medications Current Medications Sodium Chloride (Iv Sodium Chloride 0.9% 1000ml Bag) 1,000 ml @ 1,000 mls/hr 1X ONCE IV Last administered on 05/22/16 09:39; Start 05/22/16 at 09:45; Stop 05/22/16 at 10:44; Status DC Ondansetron HCl (Zofran) 4 mg 1X ONCE IV Last administered on 05/22/16 09:39 ; Start 05/22/16 at 09:45; Stop 05/22/16 at 09:46; Status DC Morphine Sulfate 5 mg 1X ONCE IV Last administered on 05/22/16 09:40; Start 05/22/16 at 09:45; Stop 05/22/16 at 09:46; Status DC Iohexol (Omnipaque 300 Mg/ml) 75 ml 1X ONCE IV Last administered on 05/22/16 10:19; Start 05/22/16 at 09:45; Stop 05/22/16 at 09:46; Status DC Info 1 each 1 each PRN DAILY PRN MC SEE COMMENTS; Start 05/22/16 at 10:00; Stop 05/24/16 at 09:59; Status DC Metronidazole 100 ml @ 100 mls/hr Q8HRS IV Last administered on 05/27/16 06:17 ; Start 05/22/16 at 12:00; Stop 05/27/16 at 16:02; Status DC Ciprofloxacin Lactate 200 ml @ 200 mls/hr Q12HR IV Last administered on 08:36; Start 05/22/16 at 21:00; Stop 05/27/16 at 16:02; Status DC Ciprofloxacin Lactate (Cipro 400mg Premix) 200 ml @ 200 mls/hr 1X ONCE IV Last administered on 05/22/16 11:24; Start 05/22/16 at 11:15; Stop 05/22/16 at 12:14; Status DC Ondansetron HCl (Zofran) 4 mg PRN Q8HRS PRN IV NAUSEA/VOMITING Last administered on 05/22/16 21:22; Start 05/22/16 at 12:45; Stop 05/23/16 at 12:44 ; Status DC Hydromorphone HCl 1 mg 1 mg PRN Q3HRS PRN IV PAIN Last administered on 10:02; Start 05/22/16 at 12:45 Sodium Chloride 1,000 ml @ 125 mls/hr 1X ONCE IV Last administered on 14:06; Start 05/22/16 at 13:30; Stop 05/22/16 at 21:29; Status DC Metronidazole 100 ml @ 100 mls/hr Q8HRS IV ; Start 05/22/16 at 14:00; Status UNV Ciprofloxacin Lactate (Cipro 400mg Premix) 200 ml @ 200 mls/hr Q12HR IV ; Start 05/22/16 at 21:00; Status UNV Famotidine (Pepcid) 20 mg QHS IVP Last administered on 05/27/16 21:09; Start at 21:00 Info (Do NOT chart on this placeholder) 1 each PRN 1X PRN MC SEE COMMENTS; Start 05/23/16 at 09:15; Status UNV Influenza Virus Vaccine Quadrival (Fluarix Quad 4054-8877 Syringe) 0.5 ml ONCE ONCE VAX IM ; Start 05/23/16 at 10:00; Stop 05/23/16 at 10:01; Status DC Ondansetron HCl 4 mg 4 mg PRN Q6HRS PRN IV NAUSEA/VOMITING Last administered on 05/27/16 06:23; Start 05/23/16 at 13:00 Dextrose/Sodium Chloride (Iv D5% - NS) 1,000 ml @ 100 mls/hr Q10H IV Last administered on 05/26/16 06:18; Start 05/23/16 at 18:30; Stop 05/27/16 at 07:08; Status DC Iohexol (Omnipaque 300 Mg/ml) 75 ml 1X ONCE IV Last administered on 05/25/16 10:30; Start 05/25/16 at 06:45; Stop 05/25/16 at 06:46; Status DC Iohexol (Omnipaque 240 Mg/ml) 30 ml 1X ONCE PO ; Start 05/25/16 at 06:45; Stop 05/25/16 at 06:46; Status DC Info (Do NOT chart on this entry -- for MONITORING) 1 each PRN DAILY PRN MC SEE COMMENTS; Start 05/25/16 at 06:45; Stop 05/27/16 at 06:44; Status DC Iohexol (Omnipaque 300 Mg/ml) 75 ml 1X ONCE IV ; Start 05/25/16 at 10:15; Stop 05/25/16 at 10:16; Status DC Lidocaine/Sodium Bicarbonate (Buffered Lidocaine 1%) 20 ml STK-MED ONCE IJ ; Start 05/25/16 at 13:23; Stop 05/25/16 at 13:24; Status DC Lidocaine/Sodium Bicarbonate (Buffered Lidocaine 1%) 20 ml STK-MED ONCE IJ ; Start 05/25/16 at 13:30; Stop 05/25/16 at 13:31; Status DC Midazolam HCl (Versed) 5 mg STK-MED ONCE .ROUTE ; Start 05/25/16 at 13:43; Stop 05/25/16 at 13:44; Status DC Fentanyl Citrate (Fentanyl 5ml Vial) 250 mcg STK-MED ONCE .ROUTE ; Start at 13:43; Stop 05/25/16 at 13:44; Status DC Lidocaine/Sodium Bicarbonate (Buffered Lidocaine 1%) 20 ml 1X ONCE IJ Last administered on 05/25/16 14:40; Start 05/25/16 at 14:15; Stop 05/25/16 at 14:16; Status DC Midazolam HCl (Versed) 2 mg 1X ONCE IV Last administered on 05/25/16 14:40; Start 05/25/16 at 14:15; Stop 05/25/16 at 14:16; Status DC Fentanyl Citrate (Fentanyl 5ml Vial) 100 mcg 1X ONCE IV Last administered on 14:40; Start 05/25/16 at 14:15; Stop 05/25/16 at 14:16; Status DC Enoxaparin Sodium (Lovenox 40mg Syringe) 40 mg Q24H SQ ; Start 05/26/16 at 11:00 ; Stop 05/26/16 at 14:07; Status DC Metoclopramide HCl (Reglan) 10 mg PRN Q6HRS PRN IV NAUSEA/VOMITING Last administered on 05/28/16 07:25; Start 05/26/16 at 10:45 Info 1 each 1 each PRN DAILY PRN MC SEE COMMENTS Last administered on 05/27/16 12:41; Start 05/26/16 at 10:45 Amino Acids/ Glycerin/ Electrolytes (Procalamine) 1,000 ml @ 80 mls/hr [id number] IV Last administered on 05/26/16 15:09; Start 05/26/16 at 14:15; Stop 05/27/16 at 21:59; Status DC Enoxaparin Sodium (Lovenox 40mg Syringe) 40 mg Q12HR SQ Last administered on 21:10; Start 05/26/16 at 15:00 Fentanyl Citrate (Fentanyl 2ml Vial) 25 mcg PRN Q5MIN PRN IV MILD PAIN; Start 05/27/16 at 11:45; Stop 05/28/16 at 11:44 Fentanyl Citrate (Fentanyl 2ml Vial) 50 mcg PRN Q5MIN PRN IV MODERATE PAIN Last administered on 05/27/16 16:35; Start 05/27/16 at 11:45; Stop 05/28/16 at 11: 44 Morphine Sulfate 1 mg 1 mg PRN Q10MIN PRN IV SEVERE PAIN; Start 05/27/16 at 11: 45; Stop 05/28/16 at 11:44 Lactated Ringer's (Iv Lactated Ringers) 1,000 ml @ 30 mls/hr Q24H IV Last administered on 05/27/16 13:15; Start 05/27/16 at 11:42; Stop 05/27/16 at 23:41; Status DC Lidocaine HCl 2 ml 1X PRN PRN ID IV START; Start 05/27/16 at 11:45; Stop at 11:44 Hydromorphone HCl 0.5 mg 0.5 mg PRN Q10MIN PRN IV SEV PAIN,Second choice Last administered on 05/27/16 18:08; Start 05/27/16 at 11:45; Stop 05/28/16 at 11:44 Sodium Chloride/ Potassium Chloride/ Potassium Phosphate/ Magnesium Sulfate/ Calcium Gluconate/ Multivitamins/ Minerals/Chromium/ Copper/Manganese/ Seleni/Zn /Total Parenteral Nutrition/Amino Acids/Dextrose/ Fat Emulsion Intravenous ( Sodium Chloride/ Potassium Phospha... 1,512 ml @ 63 mls/hr TPN CONT IV Last administered on 05/27/16 21:09; Start 05/27/16 at 22:00; Stop 05/28/16 at 21:59 Dexamethasone Sodium Phosphate (Decadron) 20 mg STK-MED ONCE .ROUTE ; Start 05/27 at 13:13; Stop 05/27/16 at 13:14; Status DC Famotidine (Pepcid) 20 mg STK-MED ONCE .ROUTE ; Start 05/27/16 at 13:13; Stop 05/27/16 at 13:14; Status DC Ondansetron HCl 4 mg 4 mg STK-MED ONCE .ROUTE ; Start 05/27/16 at 13:13; Stop 05/27/16 at 13:14; Status DC Propofol (Diprivan) 20 ml @ As Directed STK-MED ONCE IV ; Start 05/27/16 at 13:13 ; Stop 05/27/16 at 13:14; Status DC Lidocaine HCl 100 mg STK-MED ONCE .ROUTE ; Start 05/27/16 at 13:13; Stop 05/27/16 at 13:14; Status DC Fentanyl Citrate (Fentanyl 2ml Vial) 100 mcg STK-MED ONCE .ROUTE ; Start at 13:13; Stop 05/27/16 at 13:14; Status DC Rocuronium [place] 50 mg 50 mg STK-MED ONCE .ROUTE ; Start 05/27/16 at 13:13; Stop 05/27/16 at 13:14; Status DC Cefoxitin Sodium 100 ml @ 200 mls/hr 1X ONCE IV Last administered on 2/3/ 17at 13:49; Start 05/27/16 at 13:30; Stop 05/27/16 at 13:59; Status DC Cefoxitin Sodium (Mefoxin 2gm Ivpb For Omni) 100 ml @ As Directed STK-MED ONCE IV ; Start 05/27/16 at 13:20; Stop 05/27/16 at 13:21; Status DC Succinylcholine Chloride (Anectine) 200 mg STK-MED ONCE .ROUTE ; Start 05/27/16 at 13:21; Stop 05/27/16 at 13:22; Status DC Fentanyl Citrate (Fentanyl 2ml Vial) 100 mcg STK-MED ONCE .ROUTE ; Start at 13:55; Stop 05/27/16 at 13:56; Status DC Vecuronium [place] (Norcuron Bolus) 10 mg STK-MED ONCE IV ; Start 05/27/16 at 14: 57; Stop 05/27/16 at 14:58; Status DC Morphine Sulfate 10 mg STK-MED ONCE .ROUTE ; Start 05/27/16 at 15:01; Stop at 15:02; Status DC Neostigmine Methylsulfate 5 mg STK-MED ONCE .ROUTE ; Start 05/27/16 at 15:30; Stop 05/27/16 at 15:31; Status DC Glycopyrrolate (Robinul) 1 mg STK-MED ONCE .ROUTE ; Start 05/27/16 at 15:30; Stop 05/27/16 at 15:31; Status DC Desflurane (Suprane) 90 ml STK-MED ONCE IH ; Start 05/27/16 at 15:47; Stop at 15:48; Status DC Sodium Chloride (Normal Saline Flush) 3 ml QSHIFT PRN IV AFTER MEDS AND BLOOD DRAWS; Start 05/27/16 at 16:00; Status UNV Sodium Chloride 3 ml 3 ml QSHIFT PRN IV AFTER MEDS AND BLOOD DRAWS; Start at 16:00; Status UNV Cefoxitin Sodium 2 gm/Sodium Chloride 100 ml @ 200 mls/hr Q6H IV Last administered on 05/28/16 08:02; Start 05/27/16 at 20:00; Stop 05/28/16 at 08:29; Status DC Metronidazole (FLAGYL 500Mmg PREMIX) 100 ml @ 100 mls/hr Q12HR IV Last administered on 05/27/16 14:14; Start 05/27/16 at 21:00; Stop 05/28/16 at 22:00 Sodium Chloride 3 ml 3 ml QSHIFT PRN IV AFTER MEDS AND BLOOD DRAWS; Start at 16:15 Hydromorphone HCl (Dilaudid Standard BERRY GROWER) 30 ml @ 0 mls/hr CONT PRN PRN IV PROTOCOL Last administered on 05/28/16 02:18; Start 05/27/16 at 16:15 Senna/Docusate Sodium (Senna Plus) 1 tab BID PO ; Start 05/27/16 at 21:00 Lidocaine HCl 100 mg STK-MED ONCE .ROUTE ; Start 05/27/16 at 16:51; Stop 05/27/16 at 16:52; Status DC Lidocaine HCl 100 mg 1X ONCE IV Last administered on 05/27/16 16:52; Start 05/27/16 at 16:52; Stop 05/27/16 at 17:01; Status DC Vitals/I & O Vital Sign - Last 24 Hours 05/27/16 05/27/16 05/27/16 05/27/16 10:02 10:41 11:00 13:30 Temp 97.7 97.7 97.7 97.7 Pulse 69 76 Resp 16 15 B/P 132/71 148/81 Pulse Ox 94 94 O2 Delivery Room Air Room Air Room Air Room Air 05/27/16 05/27/16 05/27/16 05/27/16 16:03 16:03 16:18 16:23 Temp 97.2 97.2 Pulse 85 88 Resp 22 22 20 B/P 163/95 165/95 Pulse Ox 96 96 100 O2 Delivery Mask Simple Mask Simple Mask Simple Mask O2 Flow Rate 10 10 10 10.0 05/27/16 05/27/16 05/27/16 05/27/16 16:35 16:35 16:43 16:50 Pulse 84 94 Resp 22 22 22 20 B/P 179/94 199/89 Pulse Ox 96 96 96 90 O2 Delivery Simple Mask Simple Mask Room Air O2 Flow Rate 10.0 10 10.0 05/27/16 05/27/16 05/27/16 05/27/16 16:52 17:04 17:05 17:20 Pulse 98 98 98 Resp 20 22 B/P 199/89 167/91 169/89 Pulse Ox 96 96 O2 Delivery Nasal Cannula Nasal Cannula O2 Flow Rate 2.0 2 2 05/27/16 2/ 2/ 2 17:35 17:39 17:46 17:50 Pulse 99 99 Resp 22 20 20 20 B/P 165/88 164/89 Pulse Ox 96 96 91 91 O2 Delivery Nasal Cannula Nasal Cannula Nasal Cannula Nasal Cannula O2 Flow Rate 2 2.0 2.0 2 05/27/16 2/ 2/05/27/16 18:00 18:05 18:08 18:30 Pulse 99 98 Resp 20 20 20 B/P 161/86 152/91 Pulse Ox 92 96 93 O2 Delivery Nasal Cannula Nasal Cannula Nasal Cannula Nasal Cannula O2 Flow Rate 2 2 2.0 2.0 05/27/16 2/ 2/05/27/16 18:35 18:45 19:00 19:15 Pulse 102 102 102 Resp 16 16 16 B/P 165/84 153/88 157/83 Pulse Ox 94 94 94 O2 Delivery Nasal Cannula Nasal Cannula Nasal Cannula Nasal Cannula O2 Flow Rate 2.0 2.0 2.0 2.0 05/27/16 05/27/1605/27/05/27/16 20:00 20:00 21:00 22:00 Temp 98.4 98.4 Pulse 100 104 102 Resp 12 B/P 157/88 148/93 159/82 Pulse Ox 97 92 94 O2 Delivery Nasal Cannula Nasal Cannula Nasal Cannula Nasal Cannula O2 Flow Rate 2.0 2.0 3.0 3.0 05/27/1605/28/05/28/05/28/16 23:00 00:00 00:00 01:00 Temp 98.8 98.8 Pulse 110 98 100 Resp 22 24 15 B/P 157/80 149/76 152/87 Pulse Ox 95 95 94 O2 Delivery Nasal Cannula Nasal Cannula Nasal Cannula Nasal Cannula O2 Flow Rate 3.0 3.0 3.0 3.0 05/28/1605/28/05/28/05/28/16 02:00 02:18 02:45 03:00 Pulse 100 97 Resp 14 21 18 21 B/P 145/86 126/78 Pulse Ox 94 96 94 95 O2 Delivery Nasal Cannula Nasal Cannula Nasal Cannula Nasal Cannula O2 Flow Rate 3.0 3.0 3.0 3.0 05/28/16 05/28/16 05/28/16 05/28/16 04:00 04:00 05:00 06:00 Temp 98.0 98.0 Pulse 96 94 100 Resp 18 13 18 B/P 134/78 140/81 155/77 Pulse Ox 93 94 95 O2 Delivery Nasal Cannula Nasal Cannula Nasal Cannula Nasal Cannula O2 Flow Rate 3.0 3.0 3.0 3.0 Intake and Output 05/27/16 05/27/16 05/28/16 15:00 23:00 07:00 Intake Total 200 ml 700 ml 708 ml Output Total 1120 ml 755 ml Balance 200 ml -420 ml -47 ml Problem List Problems Medical Problems: (1) Diverticulitis Status: Acute Assessment POD #1, sigmoid resection/primary anastomosis, stable. Plan of Care: Continue current Tx, Mgmt Plan of Care Note Await return of bowel function. We will stand by. ALEX RICHARDSON MD May 28, 2016 08:37
[2016-05-28] MEDS: SENNOSIDES/DOCUSATE 8.6/50MG TABLET. PO SCH ×2 (09:00→21:00)
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
[2016-05-28] MEDS: ONDANSETRON PF 4 MG/2 ML VIAL. IV PRN ×2 (10:37→17:21)
[2016-05-28] MEDS: METRONIDAZOLE 500mg PREMIX 100 ML IV SCH ×2 (10:38→21:05)
[2016-05-28] MEDS: TPN PER PHARMACY MC PRN ×2 (10:51→10:55)
[2016-05-28] MEDS: KETOROLAC 15 MG/ML VIAL. IV SCH ×3 (11:28→23:48)
[2016-05-28] MEDS: ENOXAPARIN 40 MG/0.4 ML DISP.SYRIN. SQ SCH ×2 (14:55→21:05)
--- NOTE | 2016-05-28 17:17 | PDOC ---
GENERAL General: vss with tmax of 99.8. postop resection sigmoid diverticulits with colorectal anastomosis. O2 at 3L/NC. TPN ongoing. WBC increased to 12.1 and Hb is 15.3. glucose slightly increased with TPN. chest clear and heart regular and abdomen soft with expected incisional tenderness. Overall doing well and could move to floor when ok with surgery. Problems: VITAL SIGNS Vital Signs: Vital Signs Date Time Temp Pulse Resp B/P Pulse Ox O2 Delivery O2 Flow Rate FiO2 05/28/16 12:00 106 22 135/83 92 Nasal Cannula 3.0 05/28/16 11:00 99.8 99.8 I & O I & O Intake and Output 05/28/16 07:00 Intake Total 1608 ml Output Total 1875 ml Balance -267 ml Intake Oral 0 ml IV Total 900 ml Other 708 ml Output Urine Total 1775 ml Estimated Blood Loss 100 ml # Voids 1 ALLERGIES Allergies: Allergies Coded Allergies Type Severity Reaction Last Updated Verified No Known Drug Allergies 02/26/15 No MEDS Medications: Current Medications Medications (Trade) Dose Ordered Sig/Nelson Start Time Stop Time Status Last Admin Dose Admin Amino Acids/ Glycerin/ Electrolytes (Procalamine) 1,000 ml @ 80 mls/hr [id number] 05/26/16 14:15 05/27/16 21:59 DC 05/26/16 15:09 80 MLS/HR Cefoxitin Sodium (Mefoxin 2gm Ivpb For Omni) 100 ml @ As Directed STK-MED ONCE 05/27/16 13:20 05/27/16 13:21 DC Cefoxitin Sodium 2 gm/Sodium Chloride 100 ml @ 200 mls/hr Q6H 05/27/16 20:00 05/28/16 08:29 DC 05/28/16 08:02 200 MLS/HR Ciprofloxacin Lactate (Cipro 400mg Premix) 200 ml @ 200 mls/hr Q12HR 05/22/16 21:00 UNV Desflurane 90 ml 90 ml STK-MED ONCE 05/27/16 15:47 05/27/16 15:48 DC Dexamethasone Sodium Phosphate (Decadron) 20 mg STK-MED ONCE 05/27/16 13:13 05/27/16 13:14 DC Dextrose/Sodium Chloride (Iv D5% - NS) 1,000 ml @ 100 mls/hr Q10H 05/23/16 18:30 05/27/16 07:08 DC 05/26/16 06:18 100 MLS/HR Enoxaparin Sodium (Lovenox 40mg Syringe) 40 mg Q12HR 05/26/16 15:00 05/28/16 14:55 40 MG Famotidine (Pepcid) 20 mg STK-MED ONCE 05/27/16 13:13 05/27/16 13:14 DC Fentanyl Citrate (Fentanyl 2ml Vial) 100 mcg STK-MED ONCE 05/27/16 13:55 05/27/16 13:56 DC Fentanyl Citrate (Fentanyl 5ml Vial) 100 mcg 1X ONCE 05/25/16 14:15 05/25/16 14:16 DC 05/25/16 14:40 150 MCG Glycopyrrolate (Robinul) 1 mg STK-MED ONCE 05/27/16 15:30 05/27/16 15:31 DC Hydromorphone HCl (Dilaudid Standard [employer]) 30 ml @ 0 mls/hr CONT PRN PRN 05/27/16 16:15 05/28/16 10:41 0 MLS/HR Hydromorphone HCl (Dilaudid) 0.5 mg PRN Q10MIN PRN 05/27/16 11:45 05/28/16 11:44 DC 05/27/16 18:08 0.5 MG Hydromorphone HCl 1 mg 1 mg PRN Q3HRS PRN 05/22/16 12:45 05/27/16 10:02 1 MG Influenza Virus Vaccine Quadrival 0.5 ml 0.5 ml ONCE ONCE 05/23/16 10:00 05/23/16 10:01 DC Info (Do NOT chart on this entry -- for MONITORING) 1 each PRN DAILY PRN 05/25/16 06:45 05/27/16 06:44 DC Info (Do NOT chart on this placeholder) 1 each PRN 1X PRN 05/23/16 09:15 UNV Info 1 each 1 each PRN DAILY PRN 05/26/16 10:45 05/28/16 10:55 1 EACH Iohexol (Omnipaque 240 Mg/ml) 30 ml 1X ONCE 05/25/16 06:45 05/25/16 06:46 DC Iohexol (Omnipaque 300 Mg/ml) 75 ml 1X ONCE 05/25/16 10:15 05/25/16 10:16 DC Ketorolac Tromethamine (Toradol) 15 mg Q6HRS 05/28/16 12:00 06/02/16 11:59 05/28/16 11:28 15 MG Lactated Ringer's (Iv Lactated Ringers) 1,000 ml @ 30 mls/hr Q24H 05/27/16 11:42 05/27/16 23:41 DC 05/27/16 13:15 30 MLS/HR Lidocaine HCl 100 mg STK-MED ONCE 05/27/16 16:51 05/27/16 16:52 DC Lidocaine HCl 100 mg 100 mg 1X ONCE 05/27/16 16:52 05/27/16 17:01 DC 05/27/16 16:52 100 MG Lidocaine/Sodium Bicarbonate (Buffered Lidocaine 1%) 20 ml 1X ONCE 05/25/16 14:15 05/25/16 14:16 DC 05/25/16 14:40 20 ML Metoclopramide HCl (Reglan) 10 mg PRN Q6HRS PRN 05/26/16 10:45 05/28/16 13:34 10 MG Metronidazole (FLAGYL 500Mmg PREMIX) 100 ml @ 100 mls/hr Q12HR 05/27/16 21:00 05/28/16 22:00 05/28/16 10:38 100 MLS/HR Midazolam HCl (Versed) 2 mg 1X ONCE 05/25/16 14:15 05/25/16 14:16 DC 05/25/16 14:40 3 MG Morphine Sulfate 10 mg STK-MED ONCE 05/27/16 15:01 05/27/16 15:02 DC Morphine Sulfate 1 mg 1 mg PRN Q10MIN PRN 05/27/16 11:45 05/28/16 11:44 DC Neostigmine Methylsulfate 5 mg STK-MED ONCE 05/27/16 15:30 05/27/16 15:31 DC Ondansetron HCl (Zofran) 4 mg PRN Q8HRS PRN 05/22/16 12:45 05/23/16 12:44 DC 05/22/16 21:22 4 MG Ondansetron HCl 4 mg 4 mg STK-MED ONCE 05/27/16 13:13 05/27/16 13:14 DC Propofol (Diprivan) 20 ml @ As Directed STK-MED ONCE 05/27/16 13:13 05/27/16 13:14 DC Rocuronium [place] 50 mg 50 mg STK-MED ONCE 05/27/16 13:13 05/27/16 13:14 DC Senna/Docusate Sodium (Senna Plus) 1 tab BID 05/27/16 21:00 Sodium Chloride 1,000 ml @ 125 mls/hr 1X ONCE 05/22/16 13:30 05/22/16 21:29 DC 05/22/16 14:06 125 MLS/HR Sodium Chloride (Iv Sodium Chloride 0.9% 1000ml Bag) 1,000 ml @ 1,000 mls/hr 1X ONCE 05/22/16 09:45 05/22/16 10:44 DC 05/22/16 09:39 1,000 MLS/HR Sodium Chloride 3 ml 3 ml QSHIFT PRN 05/27/16 16:15 Sodium Chloride/ Potassium Chloride/ Potassium Phosphate/ Magnesium Sulfate/ Calcium Gluconate/ Multivitamins/ Minerals/Chromium/ Copper/Manganese/ Seleni/Zn/Total Parenteral Nutrition/Amino Acids/Dextrose/ Fat Emulsion Intravenous (Sodium Chloride/ Potassium Phospha... 1,512 ml @ 63 mls/hr TPN CONT 05/28/16 22:00 05/29/16 21:59 Succinylcholine Chloride (Anectine) 200 mg STK-MED ONCE 05/27/16 13:21 05/27/16 13:22 DC Vecuronium [place] (Norcuron Bolus) 10 mg STK-MED ONCE 05/27/16 14:57 05/27/16 14:58 DC LAB Lab: Laboratory Tests Test 05/27/16 17:20 05/28/16 07:05 Sodium Level 143mmol/L (136-145) 142mmol/L (136-145) Potassium Level 4.2mmol/L (3.5-5.1) 4.7mmol/L (3.5-5.1) Chloride Level 106mmol/L (98-107) 107mmol/L (98-107) Carbon Dioxide Level 25mmol/L (21-32) 28mmol/L (21-32) Anion Gap 12 (6-14) 7 (6-14) Blood Urea Nitrogen 19mg/dL (8-26) 17mg/dL (8-26) Creatinine 1.3mg/dL (0.7-1.3) 1.3mg/dL (0.7-1.3) Estimated GFR (Cockcroft-Gault) 58.0 58.0 Glucose Level 147mg/dL (70-99) 139mg/dL (70-99) Calcium Level 8.9mg/dL (8.5-10.1) 8.9mg/dL (8.5-10.1) Magnesium Level 1.9mg/dL (1.8-2.4) 2.1mg/dL (1.8-2.4) White Blood Count 12.1x10^3/uL (4.0-11.0) Red Blood Count 5.47x10^6/uL (4.30-5.70) Hemoglobin 15.3g/dL (13.0-17.5) Hematocrit 46.5% (39.0-53.0) Mean Corpuscular Volume 85fL (79-100) Mean Corpuscular Hemoglobin 28pg (25-35) Mean Corpuscular Hemoglobin Concent 33g/dL (31-37) Red Cell Distribution Width 13.7% (11.5-14.5) Platelet Count 257x10^3/uL (140-400) Neutrophils (%) (Auto) 79% (31-73) Lymphocytes (%) (Auto) 8% (24-48) Monocytes (%) (Auto) 13% (0-9) Eosinophils (%) (Auto) 0% (0-3) Basophils (%) (Auto) 0% (0-3) Neutrophils # (Auto) 9.6x10^3uL (1.8-7.7) Lymphocytes # (Auto) 0.9x10^3/uL (1.0-4.8) Monocytes # (Auto) 1.5x10^3/uL (0.0-1.1) Eosinophils # (Auto) 0.0x10^3/uL (0.0-0.7) Basophils # (Auto) 0.0x10^3/uL (0.0-0.2) Phosphorus Level 3.5mg/dL (2.6-4.7) Triglycerides Level 77mg/dL (0-150) VALENTÍN ROBLES MD May 28, 2016 17:17
--- NOTE | 2016-05-28 19:38 | PDOC ---
SURGICAL PROGRESS NOTE Subjective pt seen earlier this AM up to chair still having pain issues Vital Signs Vital Signs Date Time Temp Pulse Resp B/P Pulse Ox O2 Delivery O2 Flow Rate FiO2 05/28/16 19:00 16 95 Nasal Cannula 2.0 05/28/16 18:00 90 142/85 05/28/16 15:00 100.5 100.5 I&O Intake and Output 05/28/16 07:00 Intake Total 1608 ml Output Total 1875 ml Balance -267 ml Intake Oral 0 ml IV Total 900 ml Other 708 ml Output Urine Total 1775 ml Estimated Blood Loss 100 ml # Voids 1 PATIENT HAS A DILLARD: Yes General: Alert, Oriented X3, No acute distress Abdomen: Soft Labs Laboratory Tests Test 05/27/16 09:13 05/27/16 17:20 05/28/16 07:05 White Blood Count 9.0x10^3/uL (4.0-11.0) 12.1x10^3/uL (4.0-11.0) Red Blood Count 5.19x10^6/uL (4.30-5.70) 5.47x10^6/uL (4.30-5.70) Hemoglobin 14.7g/dL (13.0-17.5) 15.3g/dL (13.0-17.5) Hematocrit 43.2% (39.0-53.0) 46.5% (39.0-53.0) Mean Corpuscular Volume 83fL (79-100) 85fL (79-100) Mean Corpuscular Hemoglobin 28pg (25-35) 28pg (25-35) Mean Corpuscular Hemoglobin Concent 34g/dL (31-37) 33g/dL (31-37) Red Cell Distribution Width 13.8% (11.5-14.5) 13.7% (11.5-14.5) Platelet Count 259x10^3/uL (140-400) 257x10^3/uL (140-400) Neutrophils (%) (Auto) 77% (31-73) 79% (31-73) Lymphocytes (%) (Auto) 13% (24-48) 8% (24-48) Monocytes (%) (Auto) 7% (0-9) 13% (0-9) Eosinophils (%) (Auto) 2% (0-3) 0% (0-3) Basophils (%) (Auto) 1% (0-3) 0% (0-3) Neutrophils # (Auto) 6.9x10^3uL (1.8-7.7) 9.6x10^3uL (1.8-7.7) Lymphocytes # (Auto) 1.2x10^3/uL (1.0-4.8) 0.9x10^3/uL (1.0-4.8) Monocytes # (Auto) 0.7x10^3/uL (0.0-1.1) 1.5x10^3/uL (0.0-1.1) Eosinophils # (Auto) 0.2x10^3/uL (0.0-0.7) 0.0x10^3/uL (0.0-0.7) Basophils # (Auto) 0.1x10^3/uL (0.0-0.2) 0.0x10^3/uL (0.0-0.2) Sodium Level 141mmol/L (136-145) 143mmol/L (136-145) 142mmol/L (136-145) Potassium Level 3.8mmol/L (3.5-5.1) 4.2mmol/L (3.5-5.1) 4.7mmol/L (3.5-5.1) Chloride Level 105mmol/L (98-107) 106mmol/L (98-107) 107mmol/L (98-107) Carbon Dioxide Level 28mmol/L (21-32) 25mmol/L (21-32) 28mmol/L (21-32) Anion Gap 8 (6-14) 12 (6-14) 7 (6-14) Blood Urea Nitrogen 16mg/dL (8-26) 19mg/dL (8-26) 17mg/dL (8-26) Creatinine 1.2mg/dL (0.7-1.3) 1.3mg/dL (0.7-1.3) 1.3mg/dL (0.7-1.3) Estimated GFR (Cockcroft-Gault) 63.6 58.0 58.0 Glucose Level 118mg/dL (70-99) 147mg/dL (70-99) 139mg/dL (70-99) Calcium Level 8.6mg/dL (8.5-10.1) 8.9mg/dL (8.5-10.1) 8.9mg/dL (8.5-10.1) Phosphorus Level 3.2mg/dL (2.6-4.7) 3.5mg/dL (2.6-4.7) Magnesium Level 2.0mg/dL (1.8-2.4) 1.9mg/dL (1.8-2.4) 2.1mg/dL (1.8-2.4) Triglycerides Level 77mg/dL (0-150) Laboratory Tests Test 05/28/16 07:05 White Blood Count 12.1x10^3/uL (4.0-11.0) Red Blood Count 5.47x10^6/uL (4.30-5.70) Hemoglobin 15.3g/dL (13.0-17.5) Hematocrit 46.5% (39.0-53.0) Mean Corpuscular Volume 85fL (79-100) Mean Corpuscular Hemoglobin 28pg (25-35) Mean Corpuscular Hemoglobin Concent 33g/dL (31-37) Red Cell Distribution Width 13.7% (11.5-14.5) Platelet Count 257x10^3/uL (140-400) Neutrophils (%) (Auto) 79% (31-73) Lymphocytes (%) (Auto) 8% (24-48) Monocytes (%) (Auto) 13% (0-9) Eosinophils (%) (Auto) 0% (0-3) Basophils (%) (Auto) 0% (0-3) Neutrophils # (Auto) 9.6x10^3uL (1.8-7.7) Lymphocytes # (Auto) 0.9x10^3/uL (1.0-4.8) Monocytes # (Auto) 1.5x10^3/uL (0.0-1.1) Eosinophils # (Auto) 0.0x10^3/uL (0.0-0.7) Basophils # (Auto) 0.0x10^3/uL (0.0-0.2) Sodium Level 142mmol/L (136-145) Potassium Level 4.7mmol/L (3.5-5.1) Chloride Level 107mmol/L (98-107) Carbon Dioxide Level 28mmol/L (21-32) Anion Gap 7 (6-14) Blood Urea Nitrogen 17mg/dL (8-26) Creatinine 1.3mg/dL (0.7-1.3) Estimated GFR (Cockcroft-Gault) 58.0 Glucose Level 139mg/dL (70-99) Calcium Level 8.9mg/dL (8.5-10.1) Phosphorus Level 3.5mg/dL (2.6-4.7) Magnesium Level 2.1mg/dL (1.8-2.4) Triglycerides Level 77mg/dL (0-150) Problem List Problems Medical Problems: (1) Diverticulitis Status: Acute Assessment/Plan POD 1 sigmoid resection add Toradol Problems: ADIA KINSEY MD May 28, 2016 19:38
[2016-05-28] MEDS: FAMOTIDINE 20 MG/2 ML VIAL IVP SCH (21:05)
[2016-05-28] MEDS ORDERED: DEXTROSE 70% IV SCH ×10 (22:00)
[2016-05-28] MEDS ORDERED: TOTAL PARENTERAL NUTRITION IV SCH ×10 (22:00)
[2016-05-28] MEDS ORDERED: [UNRECOGNIZED DRUG - OTHER] IV SCH ×10 (22:00)
[2016-05-28] MEDS ORDERED: AMINO ACIDS IV SCH ×10 (22:00)
[2016-05-29] VITALS (16 sets, daily range): BP systolic 121–152; BP diastolic 68–89
[2016-05-29] MEDS: HYDROMORPHONE STANDARD PCA 30 ML IV PRN ×3 (05:12→20:04)
[2016-05-29] MEDS: KETOROLAC 15 MG/ML VIAL. IV SCH ×3 (05:44→18:07)
[2016-05-29] MEDS: METOCLOPRAMIDE HCL 10 MG/2 ML VIAL. IV PRN (05:44)
[2016-05-29 06:01] LABS: BASO # 0.1 x10^3/uL (0.0-0.2); BASO % 1 % (0-3); EOS % 1 % (0-3); HEMATOCRIT 42.7 % (39.0-53.0); HEMOGLOBIN 14.1 g/dL (13.0-17.5); LYMPH # 1.1 x10^3/uL (1.0-4.8); LYMPH % 11 % (24-48); MEAN CORPUSCULAR HEMOGLOBIN 28 pg (25-35); MEAN CORPUSCULAR HGB CONC 33 g/dL (31-37); MEAN CORPUSCULAR VOLUME 86 fL (79-100); MONO % 10 % (0-9); NEUT % 77 % (31-73); PLATELET COUNT 220 x10^3/uL (140-400); RED CELL DISTRIBUTION WIDTH 13.9 % (11.5-14.5); WHITE BLOOD COUNT 10.2 x10^3/uL (4.0-11.0)
[2016-05-29 06:12] LABS: CALCIUM 8.7 mg/dL (8.5-10.1); CREATININE 1.2 mg/dL (0.7-1.3); GFR 63.6; MAGNESIUM 2.2 mg/dL (1.8-2.4); PHOSPHORUS 3.1 mg/dL (2.6-4.7); POTASSIUM 4.7 mmol/L (3.5-5.1)
[2016-05-29] MEDS: SENNOSIDES/DOCUSATE 8.6/50MG TABLET. PO SCH ×2 (09:00→21:37)
[2016-05-29] MEDS: ENOXAPARIN 40 MG/0.4 ML DISP.SYRIN. SQ SCH ×2 (10:36→21:37)
--- NOTE | 2016-05-29 10:46 | PDOC ---
GENERAL General: vss with tmax of 100.4. WBC decreased to 10.4. BMP ok. awake and alert. chest clear and heart regular. abdomen soft with incisional tenderness. can transfer out of icu to floor and await return of bowel function. 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 Actually has phone timer set to remind him q 10 minutes or if falls asleep for while can't catch back up. Problems: VITAL SIGNS Vital Signs: Vital Signs Date Time Temp Pulse Resp B/P Pulse Ox O2 Delivery O2 Flow Rate FiO2 05/29/16 10:00 88 15 152/87 95 Nasal Cannula 2.0 05/29/16 08:00 100.3 100.3 I & O I & O Intake and Output 05/29/16 07:00 Intake Total 2516 ml Output Total 1165 ml Balance 1351 ml Other 2516 ml Output Urine Total 1165 ml ALLERGIES Allergies: Allergies Coded Allergies Type Severity Reaction Last Updated Verified No Known Drug Allergies 02/26/15 No MEDS Medications: Current Medications Medications (Trade) Dose Ordered Sig/Nelson Start Time Stop Time Status Last Admin Dose Admin Amino Acids/ Glycerin/ Electrolytes (Procalamine) 1,000 ml @ 80 mls/hr [id number] 05/26/16 14:15 05/27/16 21:59 DC 05/26/16 15:09 80 MLS/HR Cefoxitin Sodium (Mefoxin 2gm Ivpb For Omni) 100 ml @ As Directed STK-MED ONCE 05/27/16 13:20 05/27/16 13:21 DC Cefoxitin Sodium 2 gm/Sodium Chloride 100 ml @ 200 mls/hr Q6H 05/27/16 20:00 05/28/16 08:29 DC 05/28/16 08:02 200 MLS/HR Ciprofloxacin Lactate (Cipro 400mg Premix) 200 ml @ 200 mls/hr Q12HR 05/22/16 21:00 UNV Desflurane 90 ml 90 ml STK-MED ONCE 05/27/16 15:47 05/27/16 15:48 DC Dexamethasone Sodium Phosphate (Decadron) 20 mg STK-MED ONCE 05/27/16 13:13 05/27/16 13:14 DC Dextrose/Sodium Chloride (Iv D5% - NS) 1,000 ml @ 100 mls/hr Q10H 05/23/16 18:30 05/27/16 07:08 DC 05/26/16 06:18 100 MLS/HR Enoxaparin Sodium (Lovenox 40mg Syringe) 40 mg Q12HR 05/26/16 15:00 05/29/16 10:36 40 MG Famotidine (Pepcid) 20 mg STK-MED ONCE 05/27/16 13:13 05/27/16 13:14 DC Fentanyl Citrate (Fentanyl 2ml Vial) 100 mcg STK-MED ONCE 05/27/16 13:55 05/27/16 13:56 DC Fentanyl Citrate (Fentanyl 5ml Vial) 100 mcg 1X ONCE 05/25/16 14:15 05/25/16 14:16 DC 05/25/16 14:40 150 MCG Glycopyrrolate (Robinul) 1 mg STK-MED ONCE 05/27/16 15:30 05/27/16 15:31 DC Hydromorphone HCl (Dilaudid Standard ATOMIC WELDER) 30 ml @ 0 mls/hr CONT PRN PRN 05/27/16 16:15 05/29/16 05:12 0 MLS/HR Hydromorphone HCl (Dilaudid) 0.5 mg PRN Q10MIN PRN 05/27/16 11:45 05/28/16 11:44 DC 05/27/16 18:08 0.5 MG Hydromorphone HCl 1 mg 1 mg PRN Q3HRS PRN 05/22/16 12:45 05/27/16 10:02 1 MG Influenza Virus Vaccine Quadrival 0.5 ml 0.5 ml ONCE ONCE 05/23/16 10:00 05/23/16 10:01 DC Info (Do NOT chart on this entry -- for MONITORING) 1 each PRN DAILY PRN 05/25/16 06:45 05/27/16 06:44 DC Info (Do NOT chart on this placeholder) 1 each PRN 1X PRN 05/23/16 09:15 UNV Info 1 each 1 each PRN DAILY PRN 05/26/16 10:45 05/28/16 10:55 1 EACH Iohexol (Omnipaque 240 Mg/ml) 30 ml 1X ONCE 05/25/16 06:45 05/25/16 06:46 DC Iohexol (Omnipaque 300 Mg/ml) 75 ml 1X ONCE 05/25/16 10:15 05/25/16 10:16 DC Ketorolac Tromethamine (Toradol) 15 mg Q6HRS 05/28/16 12:00 06/02/16 11:59 05/29/16 05:44 15 MG Lactated Ringer's (Iv Lactated Ringers) 1,000 ml @ 30 mls/hr Q24H 05/27/16 11:42 05/27/16 23:41 DC 05/27/16 13:15 30 MLS/HR Lidocaine HCl 100 mg STK-MED ONCE 05/27/16 16:51 05/27/16 16:52 DC Lidocaine HCl 100 mg 100 mg 1X ONCE 05/27/16 16:52 05/27/16 17:01 DC 05/27/16 16:52 100 MG Lidocaine/Sodium Bicarbonate (Buffered Lidocaine 1%) 20 ml 1X ONCE 05/25/16 14:15 05/25/16 14:16 DC 05/25/16 14:40 20 ML Metoclopramide HCl (Reglan) 10 mg PRN Q6HRS PRN 05/26/16 10:45 05/29/16 05:44 10 MG Metronidazole (FLAGYL 500Mmg PREMIX) 100 ml @ 100 mls/hr Q12HR 05/27/16 21:00 05/28/16 22:00 DC 05/28/16 21:05 100 MLS/HR Midazolam HCl (Versed) 2 mg 1X ONCE 05/25/16 14:15 05/25/16 14:16 DC 05/25/16 14:40 3 MG Morphine Sulfate 10 mg STK-MED ONCE 05/27/16 15:01 05/27/16 15:02 DC Morphine Sulfate 1 mg 1 mg PRN Q10MIN PRN 05/27/16 11:45 05/28/16 11:44 DC Neostigmine Methylsulfate 5 mg STK-MED ONCE 05/27/16 15:30 05/27/16 15:31 DC Ondansetron HCl (Zofran) 4 mg PRN Q8HRS PRN 05/22/16 12:45 05/23/16 12:44 DC 05/22/16 21:22 4 MG Ondansetron HCl 4 mg 4 mg STK-MED ONCE 05/27/16 13:13 05/27/16 13:14 DC Propofol (Diprivan) 20 ml @ As Directed STK-MED ONCE 05/27/16 13:13 05/27/16 13:14 DC Rocuronium [place] 50 mg 50 mg STK-MED ONCE 05/27/16 13:13 05/27/16 13:14 DC Senna/Docusate Sodium (Senna Plus) 1 tab BID 05/27/16 21:00 Sodium Chloride 1,000 ml @ 125 mls/hr 1X ONCE 05/22/16 13:30 05/22/16 21:29 DC 05/22/16 14:06 125 MLS/HR Sodium Chloride (Iv Sodium Chloride 0.9% 1000ml Bag) 1,000 ml @ 1,000 mls/hr 1X ONCE 05/22/16 09:45 05/22/16 10:44 DC 05/22/16 09:39 1,000 MLS/HR Sodium Chloride 3 ml 3 ml QSHIFT PRN 05/27/16 16:15 Sodium Chloride/ Potassium Chloride/ Potassium Phosphate/ Magnesium Sulfate/ Calcium Gluconate/ Multivitamins/ Minerals/Chromium/ Copper/Manganese/ Seleni/Zn/Total Parenteral Nutrition/Amino Acids/Dextrose/ Fat Emulsion Intravenous (Sodium Chloride/ Potassium Phospha... 1,512 ml @ 63 mls/hr TPN CONT 05/28/16 22:00 05/29/16 21:59 05/28/16 21:05 63 MLS/HR Succinylcholine Chloride (Anectine) 200 mg STK-MED ONCE 05/27/16 13:21 05/27/16 13:22 DC Vecuronium [place] (Norcuron Bolus) 10 mg STK-MED ONCE 05/27/16 14:57 05/27/16 14:58 DC LAB Lab: Laboratory Tests Test 05/29/16 05:45 White Blood Count 10.2x10^3/uL (4.0-11.0) Red Blood Count 5.00x10^6/uL (4.30-5.70) Hemoglobin 14.1g/dL (13.0-17.5) Hematocrit 42.7% (39.0-53.0) Mean Corpuscular Volume 86fL (79-100) Mean Corpuscular Hemoglobin 28pg (25-35) Mean Corpuscular Hemoglobin Concent 33g/dL (31-37) Red Cell Distribution Width 13.9% (11.5-14.5) Platelet Count 220x10^3/uL (140-400) Neutrophils (%) (Auto) 77% (31-73) Lymphocytes (%) (Auto) 11% (24-48) Monocytes (%) (Auto) 10% (0-9) Eosinophils (%) (Auto) 1% (0-3) Basophils (%) (Auto) 1% (0-3) Neutrophils # (Auto) 7.8x10^3uL (1.8-7.7) Lymphocytes # (Auto) 1.1x10^3/uL (1.0-4.8) Monocytes # (Auto) 1.0x10^3/uL (0.0-1.1) Eosinophils # (Auto) 0.1x10^3/uL (0.0-0.7) Basophils # (Auto) 0.1x10^3/uL (0.0-0.2) Sodium Level 144mmol/L (136-145) Potassium Level 4.7mmol/L (3.5-5.1) Chloride Level 109mmol/L (98-107) Carbon Dioxide Level 30mmol/L (21-32) Anion Gap 5 (6-14) Blood Urea Nitrogen 24mg/dL (8-26) Creatinine 1.2mg/dL (0.7-1.3) Estimated GFR (Cockcroft-Gault) 63.6 Glucose Level 112mg/dL (70-99) Calcium Level 8.7mg/dL (8.5-10.1) Phosphorus Level 3.1mg/dL (2.6-4.7) Magnesium Level 2.2mg/dL (1.8-2.4) VALENTÍN ROBLES MD May 29, 2016 10:46
--- NOTE | 2016-05-29 10:51 | PDOC ---
SURGICAL PROGRESS NOTE Subjective better today with fentanyl patch doesn't "get behind on my pain meds when I sleep" no significant nausea Vital Signs Vital Signs Date Time Temp Pulse Resp B/P Pulse Ox O2 Delivery O2 Flow Rate FiO2 05/29/16 10:00 88 15 152/87 95 Nasal Cannula 2.0 05/29/16 08:00 100.3 100.3 I&O Intake and Output 05/29/16 07:00 Intake Total 2516 ml Output Total 1165 ml Balance 1351 ml Other 2516 ml Output Urine Total 1165 ml PATIENT HAS A DILLARD: Yes General: Alert, Oriented X3, Cooperative, No acute distress HEENT: Atraumatic Abdomen: Soft, Other (dressing dry, intact) Labs Laboratory Tests Test 05/27/16 17:20 05/27/16 18:30 05/28/16 07:05 05/29/16 05:45 Sodium Level 143mmol/L (136-145) 142mmol/L (136-145) 144mmol/L (136-145) Potassium Level 4.2mmol/L (3.5-5.1) 4.7mmol/L (3.5-5.1) 4.7mmol/L (3.5-5.1) Chloride Level 106mmol/L (98-107) 107mmol/L (98-107) 109mmol/L (98-107) Carbon Dioxide Level 25mmol/L (21-32) 28mmol/L (21-32) 30mmol/L (21-32) Anion Gap 12 (6-14) 7 (6-14) 5 (6-14) Blood Urea Nitrogen 19mg/dL (8-26) 17mg/dL (8-26) 24mg/dL (8-26) Creatinine 1.3mg/dL (0.7-1.3) 1.3mg/dL (0.7-1.3) 1.2mg/dL (0.7-1.3) Estimated GFR (Cockcroft-Gault) 58.0 58.0 63.6 Glucose Level 147mg/dL (70-99) 139mg/dL (70-99) 112mg/dL (70-99) Calcium Level 8.9mg/dL (8.5-10.1) 8.9mg/dL (8.5-10.1) 8.7mg/dL (8.5-10.1) Magnesium Level 1.9mg/dL (1.8-2.4) 2.1mg/dL (1.8-2.4) 2.2mg/dL (1.8-2.4) Nasal Screen MRSA (PCR) Negative (Negative) White Blood Count 12.1x10^3/uL (4.0-11.0) 10.2x10^3/uL (4.0-11.0) Red Blood Count 5.47x10^6/uL (4.30-5.70) 5.00x10^6/uL (4.30-5.70) Hemoglobin 15.3g/dL (13.0-17.5) 14.1g/dL (13.0-17.5) Hematocrit 46.5% (39.0-53.0) 42.7% (39.0-53.0) Mean Corpuscular Volume 85fL (79-100) 86fL (79-100) Mean Corpuscular Hemoglobin 28pg (25-35) 28pg (25-35) Mean Corpuscular Hemoglobin Concent 33g/dL (31-37) 33g/dL (31-37) Red Cell Distribution Width 13.7% (11.5-14.5) 13.9% (11.5-14.5) Platelet Count 257x10^3/uL (140-400) 220x10^3/uL (140-400) Neutrophils (%) (Auto) 79% (31-73) 77% (31-73) Lymphocytes (%) (Auto) 8% (24-48) 11% (24-48) Monocytes (%) (Auto) 13% (0-9) 10% (0-9) Eosinophils (%) (Auto) 0% (0-3) 1% (0-3) Basophils (%) (Auto) 0% (0-3) 1% (0-3) Neutrophils # (Auto) 9.6x10^3uL (1.8-7.7) 7.8x10^3uL (1.8-7.7) Lymphocytes # (Auto) 0.9x10^3/uL (1.0-4.8) 1.1x10^3/uL (1.0-4.8) Monocytes # (Auto) 1.5x10^3/uL (0.0-1.1) 1.0x10^3/uL (0.0-1.1) Eosinophils # (Auto) 0.0x10^3/uL (0.0-0.7) 0.1x10^3/uL (0.0-0.7) Basophils # (Auto) 0.0x10^3/uL (0.0-0.2) 0.1x10^3/uL (0.0-0.2) Phosphorus Level 3.5mg/dL (2.6-4.7) 3.1mg/dL (2.6-4.7) Triglycerides Level 77mg/dL (0-150) Laboratory Tests Test 05/29/16 05:45 White Blood Count 10.2x10^3/uL (4.0-11.0) Red Blood Count 5.00x10^6/uL (4.30-5.70) Hemoglobin 14.1g/dL (13.0-17.5) Hematocrit 42.7% (39.0-53.0) Mean Corpuscular Volume 86fL (79-100) Mean Corpuscular Hemoglobin 28pg (25-35) Mean Corpuscular Hemoglobin Concent 33g/dL (31-37) Red Cell Distribution Width 13.9% (11.5-14.5) Platelet Count 220x10^3/uL (140-400) Neutrophils (%) (Auto) 77% (31-73) Lymphocytes (%) (Auto) 11% (24-48) Monocytes (%) (Auto) 10% (0-9) Eosinophils (%) (Auto) 1% (0-3) Basophils (%) (Auto) 1% (0-3) Neutrophils # (Auto) 7.8x10^3uL (1.8-7.7) Lymphocytes # (Auto) 1.1x10^3/uL (1.0-4.8) Monocytes # (Auto) 1.0x10^3/uL (0.0-1.1) Eosinophils # (Auto) 0.1x10^3/uL (0.0-0.7) Basophils # (Auto) 0.1x10^3/uL (0.0-0.2) Sodium Level 144mmol/L (136-145) Potassium Level 4.7mmol/L (3.5-5.1) Chloride Level 109mmol/L (98-107) Carbon Dioxide Level 30mmol/L (21-32) Anion Gap 5 (6-14) Blood Urea Nitrogen 24mg/dL (8-26) Creatinine 1.2mg/dL (0.7-1.3) Estimated GFR (Cockcroft-Gault) 63.6 Glucose Level 112mg/dL (70-99) Calcium Level 8.7mg/dL (8.5-10.1) Phosphorus Level 3.1mg/dL (2.6-4.7) Magnesium Level 2.2mg/dL (1.8-2.4) Problem List Problems Medical Problems: (1) Acute diverticulitis Status: Acute (2) Diverticulitis Status: Acute Assessment/Plan POD 2 sigmoid resection to floor ambulate he declined clears for now Problems: ADIA KINSEY MD May 29, 2016 10:50
[2016-05-29] MEDS ORDERED: FENTANYL 25MCG/HR PATCH. TD SCH (11:30)
[2016-05-29] MEDS: FENTANYL 25MCG/HR PATCH. TD SCH (11:30)
[2016-05-29] MEDS: ONDANSETRON PF 4 MG/2 ML VIAL. IV PRN ×2 (12:33→21:36)
[2016-05-29] MEDS: TPN PER PHARMACY MC PRN (13:03)
[2016-05-29] MEDS: FAMOTIDINE 20 MG/2 ML VIAL IVP SCH (21:37)
[2016-05-29] MEDS ORDERED: DEXTROSE 70% IV SCH ×10 (22:00)
[2016-05-29] MEDS ORDERED: [UNRECOGNIZED DRUG - OTHER] IV SCH ×10 (22:00)
[2016-05-29] MEDS ORDERED: AMINO ACIDS IV SCH ×10 (22:00)
[2016-05-29] MEDS ORDERED: TOTAL PARENTERAL NUTRITION IV SCH ×10 (22:00)
[2016-05-30] MEDS: KETOROLAC 15 MG/ML VIAL. IV SCH ×4 (00:48→17:37)
[2016-05-30 03:33] VITALS: BP 137/83
[2016-05-30 06:23] LABS: BASO # 0.1 x10^3/uL (0.0-0.2); BASO % 1 % (0-3); EOS % 3 % (0-3); HEMATOCRIT 39.8 % (39.0-53.0); HEMOGLOBIN 13.1 g/dL (13.0-17.5); LYMPH # 1.1 x10^3/uL (1.0-4.8); LYMPH % 11 % (24-48); MEAN CORPUSCULAR HEMOGLOBIN 28 pg (25-35); MEAN CORPUSCULAR HGB CONC 33 g/dL (31-37); MEAN CORPUSCULAR VOLUME 86 fL (79-100); MONO % 9 % (0-9); NEUT % 77 % (31-73); PLATELET COUNT 185 x10^3/uL (140-400); RED BLOOD COUNT 4.63 x10^6/uL (4.30-5.70); WHITE BLOOD COUNT 9.7 x10^3/uL (4.0-11.0)
[2016-05-30 06:45] LABS: ALBUMIN 2.2 g/dL (3.4-5.0); ALBUMIN/GLOBULIN RATIO 0.5 (1.0-1.7); CALCIUM 8.8 mg/dL (8.5-10.1); CREATININE 1.1 mg/dL (0.7-1.3); GFR 70.3; POTASSIUM 4.4 mmol/L (3.5-5.1); TOTAL BILIRUBIN 0.4 mg/dL (0.2-1.0); TOTAL PROTEIN 6.4 g/dL (6.4-8.2)
[2016-05-30 07:00] VITALS: BP 147/86
[2016-05-30] MEDS: SENNOSIDES/DOCUSATE 8.6/50MG TABLET. PO SCH ×2 (08:28→20:41)
[2016-05-30] MEDS: ENOXAPARIN 40 MG/0.4 ML DISP.SYRIN. SQ SCH ×2 (08:29→20:41)
[2016-05-30 11:00] VITALS: BP 146/84
--- NOTE | 2016-05-30 11:50 | PDOC ---
JESUS BASS COUNTER WEIGHER 05/30/16 1150: SURGICAL PROGRESS NOTE Subjective hungry pain better controlled + flatus Vital Signs Vital Signs Date Time Temp Pulse Resp B/P Pulse Ox O2 Delivery O2 Flow Rate FiO2 05/30/16 11:00 98.6 80 18 146/84 96 Room Air 98.6 05/30/16 07:40 2.0 I&O Intake and Output 05/30/16 07:00 Intake Total 240 ml Output Total 1175 ml Balance -935 ml Intake Oral 240 ml Other 0 ml Output Urine Total 1175 ml PATIENT HAS A BOGGS: Yes (DC) General: Alert, Oriented X3, Cooperative, No acute distress Abdomen: Soft, Other (incisional TTP, dressing dry ) Labs Laboratory Tests Test 05/29/16 05:45 05/30/16 06:00 White Blood Count 10.2x10^3/uL (4.0-11.0) 9.7x10^3/uL (4.0-11.0) Red Blood Count 5.00x10^6/uL (4.30-5.70) 4.63x10^6/uL (4.30-5.70) Hemoglobin 14.1g/dL (13.0-17.5) 13.1g/dL (13.0-17.5) Hematocrit 42.7% (39.0-53.0) 39.8% (39.0-53.0) Mean Corpuscular Volume 86fL (79-100) 86fL (79-100) Mean Corpuscular Hemoglobin 28pg (25-35) 28pg (25-35) Mean Corpuscular Hemoglobin Concent 33g/dL (31-37) 33g/dL (31-37) Red Cell Distribution Width 13.9% (11.5-14.5) 14.0% (11.5-14.5) Platelet Count 220x10^3/uL (140-400) 185x10^3/uL (140-400) Neutrophils (%) (Auto) 77% (31-73) 77% (31-73) Lymphocytes (%) (Auto) 11% (24-48) 11% (24-48) Monocytes (%) (Auto) 10% (0-9) 9% (0-9) Eosinophils (%) (Auto) 1% (0-3) 3% (0-3) Basophils (%) (Auto) 1% (0-3) 1% (0-3) Neutrophils # (Auto) 7.8x10^3uL (1.8-7.7) 7.4x10^3uL (1.8-7.7) Lymphocytes # (Auto) 1.1x10^3/uL (1.0-4.8) 1.1x10^3/uL (1.0-4.8) Monocytes # (Auto) 1.0x10^3/uL (0.0-1.1) 0.8x10^3/uL (0.0-1.1) Eosinophils # (Auto) 0.1x10^3/uL (0.0-0.7) 0.3x10^3/uL (0.0-0.7) Basophils # (Auto) 0.1x10^3/uL (0.0-0.2) 0.1x10^3/uL (0.0-0.2) Sodium Level 144mmol/L (136-145) 141mmol/L (136-145) Potassium Level 4.7mmol/L (3.5-5.1) 4.4mmol/L (3.5-5.1) Chloride Level 109mmol/L (98-107) 108mmol/L (98-107) Carbon Dioxide Level 30mmol/L (21-32) 29mmol/L (21-32) Anion Gap 5 (6-14) 4 (6-14) Blood Urea Nitrogen 24mg/dL (8-26) 25mg/dL (8-26) Creatinine 1.2mg/dL (0.7-1.3) 1.1mg/dL (0.7-1.3) Estimated GFR (Cockcroft-Gault) 63.6 70.3 Glucose Level 112mg/dL (70-99) 121mg/dL (70-99) Calcium Level 8.7mg/dL (8.5-10.1) 8.8mg/dL (8.5-10.1) Phosphorus Level 3.1mg/dL (2.6-4.7) Magnesium Level 2.2mg/dL (1.8-2.4) BUN/Creatinine Ratio 23 (6-20) Total Bilirubin 0.4mg/dL (0.2-1.0) Aspartate Amino Transf (AST/SGOT) 18U/L (15-37) Alanine Aminotransferase (ALT/SGPT) 31U/L (16-63) Alkaline Phosphatase 45U/L (46-116) Total Protein 6.4g/dL (6.4-8.2) Albumin 2.2g/dL (3.4-5.0) Albumin/Globulin Ratio 0.5 (1.0-1.7) Laboratory Tests Test 05/30/16 06:00 White Blood Count 9.7x10^3/uL (4.0-11.0) Red Blood Count 4.63x10^6/uL (4.30-5.70) Hemoglobin 13.1g/dL (13.0-17.5) Hematocrit 39.8% (39.0-53.0) Mean Corpuscular Volume 86fL (79-100) Mean Corpuscular Hemoglobin 28pg (25-35) Mean Corpuscular Hemoglobin Concent 33g/dL (31-37) Red Cell Distribution Width 14.0% (11.5-14.5) Platelet Count 185x10^3/uL (140-400) Neutrophils (%) (Auto) 77% (31-73) Lymphocytes (%) (Auto) 11% (24-48) Monocytes (%) (Auto) 9% (0-9) Eosinophils (%) (Auto) 3% (0-3) Basophils (%) (Auto) 1% (0-3) Neutrophils # (Auto) 7.4x10^3uL (1.8-7.7) Lymphocytes # (Auto) 1.1x10^3/uL (1.0-4.8) Monocytes # (Auto) 0.8x10^3/uL (0.0-1.1) Eosinophils # (Auto) 0.3x10^3/uL (0.0-0.7) Basophils # (Auto) 0.1x10^3/uL (0.0-0.2) Sodium Level 141mmol/L (136-145) Potassium Level 4.4mmol/L (3.5-5.1) Chloride Level 108mmol/L (98-107) Carbon Dioxide Level 29mmol/L (21-32) Anion Gap 4 (6-14) Blood Urea Nitrogen 25mg/dL (8-26) Creatinine 1.1mg/dL (0.7-1.3) Estimated GFR (Cockcroft-Gault) 70.3 BUN/Creatinine Ratio 23 (6-20) Glucose Level 121mg/dL (70-99) Calcium Level 8.8mg/dL (8.5-10.1) Total Bilirubin 0.4mg/dL (0.2-1.0) Aspartate Amino Transf (AST/SGOT) 18U/L (15-37) Alanine Aminotransferase (ALT/SGPT) 31U/L (16-63) Alkaline Phosphatase 45U/L (46-116) Total Protein 6.4g/dL (6.4-8.2) Albumin 2.2g/dL (3.4-5.0) Albumin/Globulin Ratio 0.5 (1.0-1.7) Problem List Problems Medical Problems: (1) Acute diverticulitis Status: Acute (2) Diverticulitis Status: Acute Assessment/Plan s/p sigmoid resection start clears ambulate/PT Problems: PRIETO NEWTON MD 05/30/16 1217: SURGICAL PROGRESS NOTE Assessment/Plan ADDENDUM i saw and examined him. he is ambulating in the halls. feeling much better +flatus start full liquids. dc food runner and add prn percocet dc boggs--it was in for accurate i/o measurement while in the ICU. Problems: JESUS BASS APRN May 30, 2016 11:50 PRIETO NEWTON MD May 30, 2016 12:17
[2016-05-30] MEDS ORDERED: OXYCODONE/APAP 5/325 TABLET. PO PRN (12:15)
--- NOTE | 2016-05-30 13:10 | PDOC ---
Subjective: Subjective: Doing better, passing "horrible" gas, excited to try clears. Objective: Vital Signs: Vital Signs Date Time Temp Pulse Resp B/P Pulse Ox O2 Delivery O2 Flow Rate FiO2 05/30/16 11:00 98.6 80 18 146/84 96 Room Air 98.6 05/30/16 07:40 2.0 Labs: Laboratory Tests Test 05/30/16 06:00 White Blood Count 9.7x10^3/uL Red Blood Count 4.63x10^6/uL Hemoglobin 13.1g/dL Hematocrit 39.8% Mean Corpuscular Volume 86fL Mean Corpuscular Hemoglobin 28pg Mean Corpuscular Hemoglobin Concent 33g/dL Red Cell Distribution Width 14.0% Platelet Count 185x10^3/uL Neutrophils (%) (Auto) 77% Lymphocytes (%) (Auto) 11% Monocytes (%) (Auto) 9% Eosinophils (%) (Auto) 3% Basophils (%) (Auto) 1% Neutrophils # (Auto) 7.4x10^3uL Lymphocytes # (Auto) 1.1x10^3/uL Monocytes # (Auto) 0.8x10^3/uL Eosinophils # (Auto) 0.3x10^3/uL Basophils # (Auto) 0.1x10^3/uL Sodium Level 141mmol/L Potassium Level 4.4mmol/L Chloride Level 108mmol/L Carbon Dioxide Level 29mmol/L Anion Gap 4 Blood Urea Nitrogen 25mg/dL Creatinine 1.1mg/dL Estimated GFR (Cockcroft-Gault) 70.3 BUN/Creatinine Ratio 23 Glucose Level 121mg/dL Calcium Level 8.8mg/dL Total Bilirubin 0.4mg/dL Aspartate Amino Transf (AST/SGOT) 18U/L Alanine Aminotransferase (ALT/SGPT) 31U/L Alkaline Phosphatase 45U/L Total Protein 6.4g/dL Albumin 2.2g/dL Albumin/Globulin Ratio 0.5 PE: GEN: NAD, sitting up in bed LUNGS: CTAB HEART: RRR ABD: incisional tenderness NEURO/PSYCH: A & O 3 A/P: Diverticulitis w/ abscess s/p sigmoid resection -- Improving, plans to try liquids. Will follow. MIRNA PALACIOS May 30, 2016 13:10
--- NOTE | 2016-05-30 13:35 | PDOC ---
PROGRESS NOTES Subjective Subjective Pt awake and pleasant. States pain is manageable with current pain regimen. Pt states he is feeling constipated, passing gas. Objective Objective Pt awake and alert. NAD. VSS. Afebrile. Lungs CTA bilat. Resp even and unlabored. Heart with RRR. No murmurs. Abdomen soft, nondistended, and tender throughout. Vital Signs Date Time Temp Pulse Resp B/P Pulse Ox O2 Delivery O2 Flow Rate FiO2 05/30/16 11:00 98.6 80 18 146/84 96 Room Air 98.6 05/30/16 07:40 2.0 Intake and Output 05/30/16 07:00 Intake Total 240 ml Output Total 1175 ml Balance -935 ml Intake Oral 240 ml Other 0 ml Output Urine Total 1175 ml Assessment Assessment Problems Medical Problems: (1) Acute diverticulitis Status: Acute (2) Diverticulitis Status: Acute Plan Plan of Care 1. Acute perfarated diverticulitis -CT: "Perforated sigmoid diverticulitis with associated small amount of pneumoperitoneum and extensive surrounding inflammatory stranding. There is also a 2.7 cm ill-defined fluid collection within this region. Short-term follow -up is recommended to exclude early abscess formation." -Repeat CT 05/25: Perforated sigmoid diverticulitis with moderate ongoing paracolic inflammation and extraluminal gas. A small paracolic fluid collection at this level has increased slightly in size, compatible with a small abscess. -Drain placed per interventional radiology, 17cc of pus removed -Sigmoid resection on 05/28 -WBC upon admission 13.1, 9.7 this am. Continues to trend down -Abx: Cipro IV - Dc'd on 05/28 -NPO on PPN. PICC ordered to begin TPN 05/28. Clear liquids today -Surgery consulting -GI consulting Following Surgery lead for Dc plans. Suspect repeat CT in 2d and then possible Dc home based on s/s. Comment Review of Relevant I have reviewed the following items ho (where applicable) has been applied. Labs Laboratory Tests Test 05/29/16 05:45 05/30/16 06:00 White Blood Count 10.2x10^3/uL (4.0-11.0) 9.7x10^3/uL (4.0-11.0) Red Blood Count 5.00x10^6/uL (4.30-5.70) 4.63x10^6/uL (4.30-5.70) Hemoglobin 14.1g/dL (13.0-17.5) 13.1g/dL (13.0-17.5) Hematocrit 42.7% (39.0-53.0) 39.8% (39.0-53.0) Mean Corpuscular Volume 86fL (79-100) 86fL (79-100) Mean Corpuscular Hemoglobin 28pg (25-35) 28pg (25-35) Mean Corpuscular Hemoglobin Concent 33g/dL (31-37) 33g/dL (31-37) Red Cell Distribution Width 13.9% (11.5-14.5) 14.0% (11.5-14.5) Platelet Count 220x10^3/uL (140-400) 185x10^3/uL (140-400) Neutrophils (%) (Auto) 77% (31-73) 77% (31-73) Lymphocytes (%) (Auto) 11% (24-48) 11% (24-48) Monocytes (%) (Auto) 10% (0-9) 9% (0-9) Eosinophils (%) (Auto) 1% (0-3) 3% (0-3) Basophils (%) (Auto) 1% (0-3) 1% (0-3) Neutrophils # (Auto) 7.8x10^3uL (1.8-7.7) 7.4x10^3uL (1.8-7.7) Lymphocytes # (Auto) 1.1x10^3/uL (1.0-4.8) 1.1x10^3/uL (1.0-4.8) Monocytes # (Auto) 1.0x10^3/uL (0.0-1.1) 0.8x10^3/uL (0.0-1.1) Eosinophils # (Auto) 0.1x10^3/uL (0.0-0.7) 0.3x10^3/uL (0.0-0.7) Basophils # (Auto) 0.1x10^3/uL (0.0-0.2) 0.1x10^3/uL (0.0-0.2) Sodium Level 144mmol/L (136-145) 141mmol/L (136-145) Potassium Level 4.7mmol/L (3.5-5.1) 4.4mmol/L (3.5-5.1) Chloride Level 109mmol/L (98-107) 108mmol/L (98-107) Carbon Dioxide Level 30mmol/L (21-32) 29mmol/L (21-32) Anion Gap 5 (6-14) 4 (6-14) Blood Urea Nitrogen 24mg/dL (8-26) 25mg/dL (8-26) Creatinine 1.2mg/dL (0.7-1.3) 1.1mg/dL (0.7-1.3) Estimated GFR (Cockcroft-Gault) 63.6 70.3 Glucose Level 112mg/dL (70-99) 121mg/dL (70-99) Calcium Level 8.7mg/dL (8.5-10.1) 8.8mg/dL (8.5-10.1) Phosphorus Level 3.1mg/dL (2.6-4.7) Magnesium Level 2.2mg/dL (1.8-2.4) BUN/Creatinine Ratio 23 (6-20) Total Bilirubin 0.4mg/dL (0.2-1.0) Aspartate Amino Transf (AST/SGOT) 18U/L (15-37) Alanine Aminotransferase (ALT/SGPT) 31U/L (16-63) Alkaline Phosphatase 45U/L (46-116) Total Protein 6.4g/dL (6.4-8.2) Albumin 2.2g/dL (3.4-5.0) Albumin/Globulin Ratio 0.5 (1.0-1.7) Laboratory Tests Test 05/30/16 06:00 White Blood Count 9.7x10^3/uL (4.0-11.0) Red Blood Count 4.63x10^6/uL (4.30-5.70) Hemoglobin 13.1g/dL (13.0-17.5) Hematocrit 39.8% (39.0-53.0) Mean Corpuscular Volume 86fL (79-100) Mean Corpuscular Hemoglobin 28pg (25-35) Mean Corpuscular Hemoglobin Concent 33g/dL (31-37) Red Cell Distribution Width 14.0% (11.5-14.5) Platelet Count 185x10^3/uL (140-400) Neutrophils (%) (Auto) 77% (31-73) Lymphocytes (%) (Auto) 11% (24-48) Monocytes (%) (Auto) 9% (0-9) Eosinophils (%) (Auto) 3% (0-3) Basophils (%) (Auto) 1% (0-3) Neutrophils # (Auto) 7.4x10^3uL (1.8-7.7) Lymphocytes # (Auto) 1.1x10^3/uL (1.0-4.8) Monocytes # (Auto) 0.8x10^3/uL (0.0-1.1) Eosinophils # (Auto) 0.3x10^3/uL (0.0-0.7) Basophils # (Auto) 0.1x10^3/uL (0.0-0.2) Sodium Level 141mmol/L (136-145) Potassium Level 4.4mmol/L (3.5-5.1) Chloride Level 108mmol/L (98-107) Carbon Dioxide Level 29mmol/L (21-32) Anion Gap 4 (6-14) Blood Urea Nitrogen 25mg/dL (8-26) Creatinine 1.1mg/dL (0.7-1.3) Estimated GFR (Cockcroft-Gault) 70.3 BUN/Creatinine Ratio 23 (6-20) Glucose Level 121mg/dL (70-99) Calcium Level 8.8mg/dL (8.5-10.1) Total Bilirubin 0.4mg/dL (0.2-1.0) Aspartate Amino Transf (AST/SGOT) 18U/L (15-37) Alanine Aminotransferase (ALT/SGPT) 31U/L (16-63) Alkaline Phosphatase 45U/L (46-116) Total Protein 6.4g/dL (6.4-8.2) Albumin 2.2g/dL (3.4-5.0) Albumin/Globulin Ratio 0.5 (1.0-1.7) Microbiology 05/25/16 Gram Stain - Final, Complete 05/25/16 Anaerobic/Aerobic Culture - Preliminary, Resulted 05/25/16 Anaerobic Culture Result 1 (OSORIO) - Preliminary, Resulted 05/25/16 Aerobic Culture - Final, Resulted 05/25/16 Aerobic Culture Result 1 (OSORIO) - Final, Resulted 05/25/16 Aerobic Culture Result 2 (OSORIO) - Final, Resulted 05/25/16 Aerobic Culture Result 3 (OSORIO) - Final, Resulted 05/25/16 Antimicrobic Susceptibility - Final, Resulted Medications Current Medications Sodium Chloride (Iv Sodium Chloride 0.9% 1000ml Bag) 1,000 ml @ 1,000 mls/hr 1X ONCE IV Last administered on 05/22/16 09:39; Start 05/22/16 at 09:45; Stop 05/22/16 at 10:44; Status DC Ondansetron HCl (Zofran) 4 mg 1X ONCE IV Last administered on 05/22/16 09:39 ; Start 05/22/16 at 09:45; Stop 05/22/16 at 09:46; Status DC Morphine Sulfate 5 mg 1X ONCE IV Last administered on 05/22/16 09:40; Start 05/22/16 at 09:45; Stop 05/22/16 at 09:46; Status DC Iohexol (Omnipaque 300 Mg/ml) 75 ml 1X ONCE IV Last administered on 05/22/16 10:19; Start 05/22/16 at 09:45; Stop 05/22/16 at 09:46; Status DC Info 1 each 1 each PRN DAILY PRN MC SEE COMMENTS; Start 05/22/16 at 10:00; Stop 05/24/16 at 09:59; Status DC Metronidazole 100 ml @ 100 mls/hr Q8HRS IV Last administered on 05/27/16 06:17 ; Start 05/22/16 at 12:00; Stop 05/27/16 at 16:02; Status DC Ciprofloxacin Lactate 200 ml @ 200 mls/hr Q12HR IV Last administered on 08:36; Start 05/22/16 at 21:00; Stop 05/27/16 at 16:02; Status DC Ciprofloxacin Lactate (Cipro 400mg Premix) 200 ml @ 200 mls/hr 1X ONCE IV Last administered on 05/22/16 11:24; Start 05/22/16 at 11:15; Stop 05/22/16 at 12:14; Status DC Ondansetron HCl (Zofran) 4 mg PRN Q8HRS PRN IV NAUSEA/VOMITING Last administered on 05/22/16 21:22; Start 05/22/16 at 12:45; Stop 05/23/16 at 12:44 ; Status DC Hydromorphone HCl 1 mg 1 mg PRN Q3HRS PRN IV PAIN Last administered on 10:02; Start 05/22/16 at 12:45 Sodium Chloride 1,000 ml @ 125 mls/hr 1X ONCE IV Last administered on 14:06; Start 05/22/16 at 13:30; Stop 05/22/16 at 21:29; Status DC Metronidazole 100 ml @ 100 mls/hr Q8HRS IV ; Start 05/22/16 at 14:00; Status UNV Ciprofloxacin Lactate (Cipro 400mg Premix) 200 ml @ 200 mls/hr Q12HR IV ; Start 05/22/16 at 21:00; Status UNV Famotidine (Pepcid) 20 mg QHS IVP Last administered on 05/29/16 21:37; Start at 21:00 Info (Do NOT chart on this placeholder) 1 each PRN 1X PRN MC SEE COMMENTS; Start 05/23/16 at 09:15; Status UNV Influenza Virus Vaccine Quadrival (Fluarix Quad [id number] Syringe) 0.5 ml ONCE ONCE VAX IM ; Start 05/23/16 at 10:00; Stop 05/23/16 at 10:01; Status DC Ondansetron HCl 4 mg 4 mg PRN Q6HRS PRN IV NAUSEA/VOMITING Last administered on 05/29/16 21:36; Start 05/23/16 at 13:00 Dextrose/Sodium Chloride (Iv D5% - NS) 1,000 ml @ 100 mls/hr Q10H IV Last administered on 05/26/16 06:18; Start 05/23/16 at 18:30; Stop 05/27/16 at 07:08; Status DC Iohexol (Omnipaque 300 Mg/ml) 75 ml 1X ONCE IV Last administered on 05/25/16 10:30; Start 05/25/16 at 06:45; Stop 05/25/16 at 06:46; Status DC Iohexol (Omnipaque 240 Mg/ml) 30 ml 1X ONCE PO ; Start 05/25/16 at 06:45; Stop 05/25/16 at 06:46; Status DC Info (Do NOT chart on this entry -- for MONITORING) 1 each PRN DAILY PRN MC SEE COMMENTS; Start 05/25/16 at 06:45; Stop 05/27/16 at 06:44; Status DC Iohexol (Omnipaque 300 Mg/ml) 75 ml 1X ONCE IV ; Start 05/25/16 at 10:15; Stop 05/25/16 at 10:16; Status DC Lidocaine/Sodium Bicarbonate (Buffered Lidocaine 1%) 20 ml STK-MED ONCE IJ ; Start 05/25/16 at 13:23; Stop 05/25/16 at 13:24; Status DC Lidocaine/Sodium Bicarbonate (Buffered Lidocaine 1%) 20 ml STK-MED ONCE IJ ; Start 05/25/16 at 13:30; Stop 05/25/16 at 13:31; Status DC Midazolam HCl (Versed) 5 mg STK-MED ONCE .ROUTE ; Start 05/25/16 at 13:43; Stop 05/25/16 at 13:44; Status DC Fentanyl Citrate (Fentanyl 5ml Vial) 250 mcg STK-MED ONCE .ROUTE ; Start at 13:43; Stop 05/25/16 at 13:44; Status DC Lidocaine/Sodium Bicarbonate (Buffered Lidocaine 1%) 20 ml 1X ONCE IJ Last administered on 05/25/16 14:40; Start 05/25/16 at 14:15; Stop 05/25/16 at 14:16; Status DC Midazolam HCl (Versed) 2 mg 1X ONCE IV Last administered on 05/25/16 14:40; Start 05/25/16 at 14:15; Stop 05/25/16 at 14:16; Status DC Fentanyl Citrate (Fentanyl 5ml Vial) 100 mcg 1X ONCE IV Last administered on 14:40; Start 05/25/16 at 14:15; Stop 05/25/16 at 14:16; Status DC Enoxaparin Sodium (Lovenox 40mg Syringe) 40 mg Q24H SQ ; Start 05/26/16 at 11:00 ; Stop 05/26/16 at 14:07; Status DC Metoclopramide HCl (Reglan) 10 mg PRN Q6HRS PRN IV NAUSEA/VOMITING Last administered on 05/29/16 05:44; Start 05/26/16 at 10:45 Info 1 each 1 each PRN DAILY PRN MC SEE COMMENTS Last administered on 05/29/16 13:03; Start 05/26/16 at 10:45 Amino Acids/ Glycerin/ Electrolytes (Procalamine) 1,000 ml @ 80 mls/hr [id number] IV Last administered on 05/26/16 15:09; Start 05/26/16 at 14:15; Stop 05/27/16 at 21:59; Status DC Enoxaparin Sodium (Lovenox 40mg Syringe) 40 mg Q12HR SQ Last administered on 08:29; Start 05/26/16 at 15:00 Fentanyl Citrate (Fentanyl 2ml Vial) 25 mcg PRN Q5MIN PRN IV MILD PAIN Last administered on 05/28/16 11:37; Start 05/27/16 at 11:45; Stop 05/28/16 at 11:44; Status DC Fentanyl Citrate (Fentanyl 2ml Vial) 50 mcg PRN Q5MIN PRN IV MODERATE PAIN Last administered on 05/27/16 16:35; Start 05/27/16 at 11:45; Stop 05/28/16 at 11: 44; Status DC Morphine Sulfate 1 mg 1 mg PRN Q10MIN PRN IV SEVERE PAIN; Start 05/27/16 at 11: 45; Stop 05/28/16 at 11:44; Status DC Lactated Ringer's (Iv Lactated Ringers) 1,000 ml @ 30 mls/hr Q24H IV Last administered on 05/27/16 13:15; Start 05/27/16 at 11:42; Stop 05/27/16 at 23:41; Status DC Lidocaine HCl 2 ml 1X PRN PRN ID IV START; Start 05/27/16 at 11:45; Stop at 11:44; Status DC Hydromorphone HCl 0.5 mg 0.5 mg PRN Q10MIN PRN IV SEV PAIN,Second choice Last administered on 05/27/16 18:08; Start 05/27/16 at 11:45; Stop 05/28/16 at 11:44; Status DC Sodium Chloride/ Potassium Chloride/ Potassium Phosphate/ Magnesium Sulfate/ Calcium Gluconate/ Multivitamins/ Minerals/Chromium/ Copper/Manganese/ Seleni/Zn /Total Parenteral Nutrition/Amino Acids/Dextrose/ Fat Emulsion Intravenous ( Sodium Chloride/ Potassium Phospha... 1,512 ml @ 63 mls/hr TPN CONT IV Last administered on 05/27/16 21:09; Start 05/27/16 at 22:00; Stop 05/28/16 at 21:59; Status DC Dexamethasone Sodium Phosphate (Decadron) 20 mg STK-MED ONCE .ROUTE ; Start 05/27 at 13:13; Stop 05/27/16 at 13:14; Status DC Famotidine (Pepcid) 20 mg STK-MED ONCE .ROUTE ; Start 05/27/16 at 13:13; Stop 05/27/16 at 13:14; Status DC Ondansetron HCl 4 mg 4 mg STK-MED ONCE .ROUTE ; Start 05/27/16 at 13:13; Stop 05/27/16 at 13:14; Status DC Propofol (Diprivan) 20 ml @ As Directed STK-MED ONCE IV ; Start 05/27/16 at 13:13 ; Stop 05/27/16 at 13:14; Status DC Lidocaine HCl 100 mg STK-MED ONCE .ROUTE ; Start 05/27/16 at 13:13; Stop 05/27/16 at 13:14; Status DC Fentanyl Citrate (Fentanyl 2ml Vial) 100 mcg STK-MED ONCE .ROUTE ; Start at 13:13; Stop 05/27/16 at 13:14; Status DC Rocuronium [place] 50 mg 50 mg STK-MED ONCE .ROUTE ; Start 05/27/16 at 13:13; Stop 05/27/16 at 13:14; Status DC Cefoxitin Sodium 100 ml @ 200 mls/hr 1X ONCE IV Last administered on 13:49; Start 05/27/16 at 13:30; Stop 05/27/16 at 13:59; Status DC Cefoxitin Sodium (Mefoxin 2gm Ivpb For Omni) 100 ml @ As Directed STK-MED ONCE IV ; Start 05/27/16 at 13:20; Stop 05/27/16 at 13:21; Status DC Succinylcholine Chloride (Anectine) 200 mg STK-MED ONCE .ROUTE ; Start 05/27/16 at 13:21; Stop 05/27/16 at 13:22; Status DC Fentanyl Citrate (Fentanyl 2ml Vial) 100 mcg STK-MED ONCE .ROUTE ; Start at 13:55; Stop 05/27/16 at 13:56; Status DC Vecuronium [place] (Norcuron Bolus) 10 mg STK-MED ONCE IV ; Start 05/27/16 at 14: 57; Stop 05/27/16 at 14:58; Status DC Morphine Sulfate 10 mg STK-MED ONCE .ROUTE ; Start 05/27/16 at 15:01; Stop at 15:02; Status DC Neostigmine Methylsulfate 5 mg STK-MED ONCE .ROUTE ; Start 05/27/16 at 15:30; Stop 05/27/16 at 15:31; Status DC Glycopyrrolate (Robinul) 1 mg STK-MED ONCE .ROUTE ; Start 05/27/16 at 15:30; Stop 05/27/16 at 15:31; Status DC Desflurane (Suprane) 90 ml STK-MED ONCE IH ; Start 05/27/16 at 15:47; Stop at 15:48; Status DC Sodium Chloride (Normal Saline Flush) 3 ml QSHIFT PRN IV AFTER MEDS AND BLOOD DRAWS; Start 05/27/16 at 16:00; Status UNV Sodium Chloride 3 ml 3 ml QSHIFT PRN IV AFTER MEDS AND BLOOD DRAWS; Start at 16:00; Status UNV Cefoxitin Sodium 2 gm/Sodium Chloride 100 ml @ 200 mls/hr Q6H IV Last administered on 05/28/16 08:02; Start 05/27/16 at 20:00; Stop 05/28/16 at 08:29; Status DC Metronidazole (FLAGYL 500Mmg PREMIX) 100 ml @ 100 mls/hr Q12HR IV Last administered on 05/28/16 21:05; Start 05/27/16 at 21:00; Stop 05/28/16 at 22:00; Status DC Sodium Chloride 3 ml 3 ml QSHIFT PRN IV AFTER MEDS AND BLOOD DRAWS; Start at 16:15 Hydromorphone HCl (Dilaudid Standard [employer]) 30 ml @ 0 mls/hr CONT PRN PRN IV PROTOCOL Last administered on 05/29/16 20:04; Start 05/27/16 at 16:15; Stop at 12:09; Status DC Senna/Docusate Sodium (Senna Plus) 1 tab BID PO Last administered on 05/30/16 08:28; Start 05/27/16 at 21:00 Lidocaine HCl 100 mg STK-MED ONCE .ROUTE ; Start 05/27/16 at 16:51; Stop 05/27/16 at 16:52; Status DC Lidocaine HCl 100 mg 100 mg 1X ONCE IV Last administered on 05/27/16 16:52; Start 05/27/16 at 16:52; Stop 05/27/16 at 17:01; Status DC Sodium Chloride/ Potassium Chloride/ Potassium Phosphate/ Magnesium Sulfate/ Calcium Gluconate/ Multivitamins/ Minerals/Chromium/ Copper/Manganese/ Seleni/Zn /Total Parenteral Nutrition/Amino Acids/Dextrose/ Fat Emulsion Intravenous ( Sodium Chloride/ Potassium Phospha... 1,512 ml @ 63 mls/hr TPN CONT IV Last administered on 05/28/16 21:05; Start 05/28/16 at 22:00; Stop 05/29/16 at 21:59; Status DC Ketorolac Tromethamine (Toradol) 15 mg Q6HRS IV Last administered on 05/30/16 12:00; Start 05/28/16 at 12:00; Stop 06/02/16 at 11:59 Fentanyl (Duragesic 25mcg/ Hr Patch) 1 patch Q3DAYS TD Last administered on 05/29 11:30; Start 05/29/16 at 11:30 Fentanyl 1 patch 1 patch Q3DAYS TD ; Start 05/29/16 at 11:30; Status Cancel Sodium Chloride/ Potassium Chloride/ Potassium Phosphate/ Magnesium Sulfate/ Calcium Gluconate/ Multivitamins/ Minerals/Chromium/ Copper/Manganese/ Seleni/Zn /Total Parenteral Nutrition/Amino Acids/Dextrose/ Fat Emulsion Intravenous ( Sodium Chloride/ Potassium Phospha... 1,512 ml @ 63 mls/hr TPN CONT IV Last administered on 2/5/17at 22:00; Start 05/29/16 at 22:00; Stop 05/30/16 at 21:59 Oxycodone/ Acetaminophen (Percocet 5/325) 1 tab PRN Q4HRS PRN PO MILD-MOD PAIN ; Start 05/30/16 at 12:15 Oxycodone/ Acetaminophen (Percocet 5/325) 2 tab PRN Q4HRS PRN PO SEVERE PAIN; Start 05/30/16 at 12:15 Vitals/I & O Vital Sign - Last 24 Hours 05/29/16 05/29/16 05/29/16 05/29/16 15:30 16:00 17:05 19:00 Temp 98.1 98.8 98.1 98.8 Pulse 110 104 101 Resp 12 20 18 B/P 148/88 130/89 129/80 Pulse Ox 95 95 92 93 O2 Delivery Nasal Cannula Nasal Cannula Nasal Cannula Nasal Cannula O2 Flow Rate 2.0 2.0 2.0 2.0 05/29/16 05/29/16 05/29/16 05/29/16 20:00 20:04 20:34 23:58 Temp 98.2 98.2 Pulse 102 Resp 16 16 18 B/P 136/80 Pulse Ox 92 92 94 O2 Delivery Nasal Cannula Nasal Cannula Nasal Cannula Nasal Cannula O2 Flow Rate 2.0 2.0 2.0 2.0 05/30/16 05/30/16 05/30/16 05/30/16 03:33 07:00 07:40 11:00 Temp 97.7 97.4 98.6 97.7 97.4 98.6 Pulse 92 95 80 Resp 18 18 18 B/P 137/83 147/86 146/84 Pulse Ox 94 94 96 O2 Delivery Nasal Cannula Room Air Nasal Cannula Room Air O2 Flow Rate 2.0 2.0 Intake and Output 05/29/16 05/29/16 05/30/16 15:00 23:00 07:00 Intake Total 0 ml 120 ml 120 ml Output Total 175 ml 300 ml 700 ml Balance -175 ml -180 ml -580 ml VALENTÍN ROBLES MD May 30, 2016 13:35
[2016-05-30] MEDS: TPN PER PHARMACY MC PRN (14:07)
--- NOTE | 2016-05-30 14:12 | CARD ---
APPROVED REPORT EXAM: Two-dimensional and M-mode echocardiogram with Doppler and color Doppler. Other Information Quality : Average Rhythm : NSR INDICATION Arrhythmia 2D DIMENSIONS Left Atrium(2D)3.4 (1.6-4.0cm)IVSd1.4 (0.7-1.1cm) Aortic Root(2D)2.9 (2.0-3.7cm)LVDd4.6 (3.9-5.9cm) LVOT Diameter2.0 (1.8-2.4cm)PWd1.5 (0.7-1.1cm) LVDs3.0 (2.5-4.0cm)FS (%) 35.7 % SV64.6 mlLVEF(%)65.2 (>50%) Aortic Valve AoV Peak Abdoul.134.1cm/sAoV VTI23.2cm AO Peak GR.7.2mmHgLVOT Peak Abdoul.143.5cm/s LVOT VTI 23.13cmAO Mean GR.4mmHg IDA (VMAX)3.18sc9BXE (VTI)3.07cm2 Mitral Valve MV E Thlzqxcn33.8cm/sMV DECEL [id number] MV A Jetmbjfm25.7cm/sMV E Mean Gr.1mmHg MV [id number]/A Ratio1.1 MV A [id number] (PHT)3.24cm2 TDI E/Lateral E'5.1E/Medial E'6.0 Pulmonary Valve PV Peak Ubpcfirc080.6cm/sPV Peak Grad.7mmHg RVOT VTI22.9cm Tricuspid Valve TR P. Weddwwwb191kj/sRAP [id number] TR Peak Gr.74nrGgVIAA12lyKb LEFT VENTRICLE The left ventricle is normal size. There is mild concentric left ventricular hypertrophy. Left ventri grabiel systolic function is normal. The Ejection Fraction is 60-65%. There is normal LV segmental wall m otion. The left ventricular diastolic function and filling is normal for age. RIGHT VENTRICLE The right ventricle is normal size. The right ventricular systolic function is normal. ATRIA The left atrium size is normal. The right atrium size is normal. The interatrial septum is intact wit h no evidence for an atrial septal defect or patent foramen ovale as noted on 2-D or Doppler imaging. AORTIC VALVE The aortic valve is normal in structure and function. The aortic valve is trileaflet. Doppler and Col or Flow revealed no significant aortic regurgitation. There is no significant aortic valvular stenosi s. MITRAL VALVE The mitral valve is normal in structure and function. There is no mitral valve stenosis. Doppler and Color Flow revealed trace mitral regurgitation. TRICUSPID VALVE The tricuspid valve is normal in structure and function. Doppler and Color Flow revealed mild tricusp id regurgitation. The PA pressure was estimated at 28 mmHg. There is no tricuspid valve stenosis. PULMONIC VALVE The pulmonic valve is not well visualized. Doppler and Color Flow revealed no pulmonic valvular regur gitation. There is no pulmonic valvular stenosis. GREAT VESSELS The aortic root is normal in size. Normal pulmonary venous flow (Doppler). The IVC is normal in size and collapses >50% with inspiration. PERICARDIAL EFFUSION There is no evidence of significant pericardial effusion. Critical Notification Critical Value: No <Conclusion> The left ventricle is normal size. Left ventricle systolic function is normal. The Ejection Fraction is 60-65%. There is mild concentric left ventricular hypertrophy. There is no significant aortic valvular stenosis. Doppler and Color Flow revealed no significant aortic regurgitation. Doppler and Color Flow revealed trace mitral regurgitation. Doppler and Color Flow revealed mild tricuspid regurgitation. The PA pressure was estimated at 28 mmHg.
[2016-05-30 15:00] VITALS: BP 146/79
[2016-05-30 19:41] VITALS: BP 143/83
[2016-05-30] MEDS: FAMOTIDINE 20 MG/2 ML VIAL IVP SCH (20:41)
[2016-05-30] MEDS: OXYCODONE/APAP 5/325 TABLET. PO PRN (20:41)
[2016-05-30] MEDS ORDERED: [UNRECOGNIZED DRUG - OTHER] IV SCH ×10 (22:00)
[2016-05-30] MEDS ORDERED: DEXTROSE 70% IV SCH ×10 (22:00)
[2016-05-30] MEDS ORDERED: TOTAL PARENTERAL NUTRITION IV SCH ×10 (22:00)
[2016-05-30] MEDS ORDERED: AMINO ACIDS IV SCH ×10 (22:00)
[2016-05-30 23:19] VITALS: BP 168/87
[2016-05-31] MEDS: KETOROLAC 15 MG/ML VIAL. IV SCH ×4 (00:23→17:45)
[2016-05-31 03:01] VITALS: BP 156/84
[2016-05-31 04:09] LABS: CALCIUM 8.7 mg/dL (8.5-10.1); CREATININE 0.9 mg/dL (0.7-1.3); GFR 88.6; POTASSIUM 3.9 mmol/L (3.5-5.1)
[2016-05-31 07:00] VITALS: BP 159/90
[2016-05-31] MEDS: SENNOSIDES/DOCUSATE 8.6/50MG TABLET. PO SCH ×2 (08:14→22:07)
[2016-05-31] MEDS: ENOXAPARIN 40 MG/0.4 ML DISP.SYRIN. SQ SCH ×2 (08:15→22:07)
[2016-05-31] MEDS: OXYCODONE/APAP 5/325 TABLET. PO PRN ×2 (10:08→16:03)
--- NOTE | 2016-05-31 10:23 | PDOC ---
Subjective: Subjective: Drenching sweats since stopping [employer], feeling "funny." Productive cough. Pain' s okay. Tolerating clears. Passing gas and some liquid stool. Objective: Vital Signs: Vital Signs Date Time Temp Pulse Resp B/P Pulse Ox O2 Delivery O2 Flow Rate FiO2 05/31/16 10:08 20 Room Air 05/31/16 07:00 97.5 80 159/90 96 2.0 97.5 Labs: Laboratory Tests Test 05/31/16 03:45 Sodium Level 142mmol/L Potassium Level 3.9mmol/L Chloride Level 107mmol/L Carbon Dioxide Level 27mmol/L Anion Gap 8 Blood Urea Nitrogen 20mg/dL Creatinine 0.9mg/dL Estimated GFR (Cockcroft-Gault) 88.6 Glucose Level 132mg/dL Calcium Level 8.7mg/dL PE: GEN: sweating LUNGS: clear anteriorly HEART: RRR ABD: S/ND/NT NEURO/PSYCH: A & O 3 A/P: Diverticulitis w/ abscess s/p sigmoid resection Sweats Cough -- Tolerating clears, passing flatus and stool. Seems some difficulty coming off [employer]. MIRNA PALACIOS May 31, 2016 10:23
[2016-05-31] MEDS ORDERED: POLYETHYLENE GLYCOL 3350 17 GM PACKET. PO PRN (10:30)
--- NOTE | 2016-05-31 10:41 | PDOC ---
PROGRESS NOTES Subjective Subjective Pt awake and pleasant this am. States he is passing gas and some liquid stools. Pt states he has tolerated the liquid diet without increased n/v. Objective Objective Pt awake and alert. NAD. VSS. Afebrile. Lungs CTA bilat. Resp even and unlabored. Heart with RRR. No murmurs. Pt on RA, not requiring supplemental O2. Vital Signs Date Time Temp Pulse Resp B/P Pulse Ox O2 Delivery O2 Flow Rate FiO2 05/31/16 10:08 20 Room Air 05/31/16 07:00 97.5 80 159/90 96 2.0 97.5 Intake and Output 05/31/16 07:00 Intake Total 1393 ml Balance 1393 ml Intake Oral 520 ml IV Total 873 ml # Voids 1 # Bowel Movements 1 Assessment Assessment Problems Medical Problems: (1) Acute diverticulitis Status: Acute (2) Diverticulitis Status: Acute Plan Plan of Care 1. Acute perfarated diverticulitis -CT: "Perforated sigmoid diverticulitis with associated small amount of pneumoperitoneum and extensive surrounding inflammatory stranding. There is also a 2.7 cm ill-defined fluid collection within this region. Short-term follow -up is recommended to exclude early abscess formation." -Repeat CT 05/25: Perforated sigmoid diverticulitis with moderate ongoing paracolic inflammation and extraluminal gas. A small paracolic fluid collection at this level has increased slightly in size, compatible with a small abscess. -Drain placed per interventional radiology, 17cc of pus removed -Sigmoid resection on 05/28 -WBC upon admission 13.1, 9.7 this am. Continues to trend down -Abx: Cipro IV - Dc'd on 05/28 -NPO on PPN. PICC ordered to begin TPN 05/28. Clear liquids started on 05/30. -Surgery consulting -GI consulting Following Surgery lead for Dc plans. Comment Review of Relevant I have reviewed the following items ho (where applicable) has been applied. Labs Laboratory Tests Test 05/30/16 06:00 05/31/16 03:45 White Blood Count 9.7x10^3/uL (4.0-11.0) Red Blood Count 4.63x10^6/uL (4.30-5.70) Hemoglobin 13.1g/dL (13.0-17.5) Hematocrit 39.8% (39.0-53.0) Mean Corpuscular Volume 86fL (79-100) Mean Corpuscular Hemoglobin 28pg (25-35) Mean Corpuscular Hemoglobin Concent 33g/dL (31-37) Red Cell Distribution Width 14.0% (11.5-14.5) Platelet Count 185x10^3/uL (140-400) Neutrophils (%) (Auto) 77% (31-73) Lymphocytes (%) (Auto) 11% (24-48) Monocytes (%) (Auto) 9% (0-9) Eosinophils (%) (Auto) 3% (0-3) Basophils (%) (Auto) 1% (0-3) Neutrophils # (Auto) 7.4x10^3uL (1.8-7.7) Lymphocytes # (Auto) 1.1x10^3/uL (1.0-4.8) Monocytes # (Auto) 0.8x10^3/uL (0.0-1.1) Eosinophils # (Auto) 0.3x10^3/uL (0.0-0.7) Basophils # (Auto) 0.1x10^3/uL (0.0-0.2) Sodium Level 141mmol/L (136-145) 142mmol/L (136-145) Potassium Level 4.4mmol/L (3.5-5.1) 3.9mmol/L (3.5-5.1) Chloride Level 108mmol/L (98-107) 107mmol/L (98-107) Carbon Dioxide Level 29mmol/L (21-32) 27mmol/L (21-32) Anion Gap 4 (6-14) 8 (6-14) Blood Urea Nitrogen 25mg/dL (8-26) 20mg/dL (8-26) Creatinine 1.1mg/dL (0.7-1.3) 0.9mg/dL (0.7-1.3) Estimated GFR (Cockcroft-Gault) 70.3 88.6 BUN/Creatinine Ratio 23 (6-20) Glucose Level 121mg/dL (70-99) 132mg/dL (70-99) Calcium Level 8.8mg/dL (8.5-10.1) 8.7mg/dL (8.5-10.1) Total Bilirubin 0.4mg/dL (0.2-1.0) Aspartate Amino Transf (AST/SGOT) 18U/L (15-37) Alanine Aminotransferase (ALT/SGPT) 31U/L (16-63) Alkaline Phosphatase 45U/L (46-116) Total Protein 6.4g/dL (6.4-8.2) Albumin 2.2g/dL (3.4-5.0) Albumin/Globulin Ratio 0.5 (1.0-1.7) Laboratory Tests Test 05/31/16 03:45 Sodium Level 142mmol/L (136-145) Potassium Level 3.9mmol/L (3.5-5.1) Chloride Level 107mmol/L (98-107) Carbon Dioxide Level 27mmol/L (21-32) Anion Gap 8 (6-14) Blood Urea Nitrogen 20mg/dL (8-26) Creatinine 0.9mg/dL (0.7-1.3) Estimated GFR (Cockcroft-Gault) 88.6 Glucose Level 132mg/dL (70-99) Calcium Level 8.7mg/dL (8.5-10.1) Microbiology 05/25/16 Gram Stain - Final, Complete 05/25/16 Anaerobic/Aerobic Culture - Preliminary, Resulted 05/25/16 Anaerobic Culture Result 1 (OSORIO) - Preliminary, Resulted 05/25/16 Aerobic Culture - Final, Resulted 05/25/16 Aerobic Culture Result 1 (OSORIO) - Final, Resulted 05/25/16 Aerobic Culture Result 2 (OSORIO) - Final, Resulted 05/25/16 Aerobic Culture Result 3 (OSORIO) - Final, Resulted 05/25/16 Antimicrobic Susceptibility - Final, Resulted Medications Current Medications Sodium Chloride (Iv Sodium Chloride 0.9% 1000ml Bag) 1,000 ml @ 1,000 mls/hr 1X ONCE IV Last administered on 05/22/16 09:39; Start 05/22/16 at 09:45; Stop 05/22/16 at 10:44; Status DC Ondansetron HCl (Zofran) 4 mg 1X ONCE IV Last administered on 05/22/16 09:39 ; Start 05/22/16 at 09:45; Stop 05/22/16 at 09:46; Status DC Morphine Sulfate 5 mg 1X ONCE IV Last administered on 05/22/16 09:40; Start 05/22/16 at 09:45; Stop 05/22/16 at 09:46; Status DC Iohexol (Omnipaque 300 Mg/ml) 75 ml 1X ONCE IV Last administered on 05/22/16 10:19; Start 05/22/16 at 09:45; Stop 05/22/16 at 09:46; Status DC Info 1 each 1 each PRN DAILY PRN MC SEE COMMENTS; Start 05/22/16 at 10:00; Stop 05/24/16 at 09:59; Status DC Metronidazole 100 ml @ 100 mls/hr Q8HRS IV Last administered on 05/27/16 06:17 ; Start 05/22/16 at 12:00; Stop 05/27/16 at 16:02; Status DC Ciprofloxacin Lactate 200 ml @ 200 mls/hr Q12HR IV Last administered on 08:36; Start 05/22/16 at 21:00; Stop 05/27/16 at 16:02; Status DC Ciprofloxacin Lactate (Cipro 400mg Premix) 200 ml @ 200 mls/hr 1X ONCE IV Last administered on 05/22/16 11:24; Start 05/22/16 at 11:15; Stop 05/22/16 at 12:14; Status DC Ondansetron HCl (Zofran) 4 mg PRN Q8HRS PRN IV NAUSEA/VOMITING Last administered on 05/22/16 21:22; Start 05/22/16 at 12:45; Stop 05/23/16 at 12:44 ; Status DC Hydromorphone HCl 1 mg 1 mg PRN Q3HRS PRN IV PAIN Last administered on 10:02; Start 05/22/16 at 12:45 Sodium Chloride 1,000 ml @ 125 mls/hr 1X ONCE IV Last administered on 14:06; Start 05/22/16 at 13:30; Stop 05/22/16 at 21:29; Status DC Metronidazole 100 ml @ 100 mls/hr Q8HRS IV ; Start 05/22/16 at 14:00; Status UNV Ciprofloxacin Lactate (Cipro 400mg Premix) 200 ml @ 200 mls/hr Q12HR IV ; Start 05/22/16 at 21:00; Status UNV Famotidine (Pepcid) 20 mg QHS IVP Last administered on 05/30/16 20:41; Start at 21:00 Info (Do NOT chart on this placeholder) 1 each PRN 1X PRN MC SEE COMMENTS; Start 05/23/16 at 09:15; Status UNV Influenza Virus Vaccine Quadrival (Fluarix Quad 6916-3437 Syringe) 0.5 ml ONCE ONCE VAX IM ; Start 05/23/16 at 10:00; Stop 05/23/16 at 10:01; Status DC Ondansetron HCl 4 mg 4 mg PRN Q6HRS PRN IV NAUSEA/VOMITING Last administered on 05/29/16 21:36; Start 05/23/16 at 13:00 Dextrose/Sodium Chloride (Iv D5% - NS) 1,000 ml @ 100 mls/hr Q10H IV Last administered on 05/26/16 06:18; Start 05/23/16 at 18:30; Stop 05/27/16 at 07:08; Status DC Iohexol (Omnipaque 300 Mg/ml) 75 ml 1X ONCE IV Last administered on 05/25/16 10:30; Start 05/25/16 at 06:45; Stop 05/25/16 at 06:46; Status DC Iohexol (Omnipaque 240 Mg/ml) 30 ml 1X ONCE PO ; Start 05/25/16 at 06:45; Stop 05/25/16 at 06:46; Status DC Info (Do NOT chart on this entry -- for MONITORING) 1 each PRN DAILY PRN MC SEE COMMENTS; Start 05/25/16 at 06:45; Stop 05/27/16 at 06:44; Status DC Iohexol (Omnipaque 300 Mg/ml) 75 ml 1X ONCE IV ; Start 05/25/16 at 10:15; Stop 05/25/16 at 10:16; Status DC Lidocaine/Sodium Bicarbonate (Buffered Lidocaine 1%) 20 ml STK-MED ONCE IJ ; Start 05/25/16 at 13:23; Stop 05/25/16 at 13:24; Status DC Lidocaine/Sodium Bicarbonate (Buffered Lidocaine 1%) 20 ml STK-MED ONCE IJ ; Start 05/25/16 at 13:30; Stop 05/25/16 at 13:31; Status DC Midazolam HCl (Versed) 5 mg STK-MED ONCE .ROUTE ; Start 05/25/16 at 13:43; Stop 05/25/16 at 13:44; Status DC Fentanyl Citrate (Fentanyl 5ml Vial) 250 mcg STK-MED ONCE .ROUTE ; Start at 13:43; Stop 05/25/16 at 13:44; Status DC Lidocaine/Sodium Bicarbonate (Buffered Lidocaine 1%) 20 ml 1X ONCE IJ Last administered on 05/25/16 14:40; Start 05/25/16 at 14:15; Stop 05/25/16 at 14:16; Status DC Midazolam HCl (Versed) 2 mg 1X ONCE IV Last administered on 05/25/16 14:40; Start 05/25/16 at 14:15; Stop 05/25/16 at 14:16; Status DC Fentanyl Citrate (Fentanyl 5ml Vial) 100 mcg 1X ONCE IV Last administered on 14:40; Start 05/25/16 at 14:15; Stop 05/25/16 at 14:16; Status DC Enoxaparin Sodium (Lovenox 40mg Syringe) 40 mg Q24H SQ ; Start 05/26/16 at 11:00 ; Stop 05/26/16 at 14:07; Status DC Metoclopramide HCl (Reglan) 10 mg PRN Q6HRS PRN IV NAUSEA/VOMITING Last administered on 05/29/16 05:44; Start 05/26/16 at 10:45 Info 1 each 1 each PRN DAILY PRN MC SEE COMMENTS Last administered on 05/30/16 14:07; Start 05/26/16 at 10:45 Amino Acids/ Glycerin/ Electrolytes (Procalamine) 1,000 ml @ 80 mls/hr [id number] IV Last administered on 05/26/16 15:09; Start 05/26/16 at 14:15; Stop 05/27/16 at 21:59; Status DC Enoxaparin Sodium (Lovenox 40mg Syringe) 40 mg Q12HR SQ Last administered on 08:15; Start 05/26/16 at 15:00 Fentanyl Citrate (Fentanyl 2ml Vial) 25 mcg PRN Q5MIN PRN IV MILD PAIN Last administered on 05/28/16 11:37; Start 05/27/16 at 11:45; Stop 05/28/16 at 11:44; Status DC Fentanyl Citrate (Fentanyl 2ml Vial) 50 mcg PRN Q5MIN PRN IV MODERATE PAIN Last administered on 05/27/16 16:35; Start 05/27/16 at 11:45; Stop 05/28/16 at 11: 44; Status DC Morphine Sulfate 1 mg 1 mg PRN Q10MIN PRN IV SEVERE PAIN; Start 05/27/16 at 11: 45; Stop 05/28/16 at 11:44; Status DC Lactated Ringer's (Iv Lactated Ringers) 1,000 ml @ 30 mls/hr Q24H IV Last administered on 05/27/16 13:15; Start 05/27/16 at 11:42; Stop 05/27/16 at 23:41; Status DC Lidocaine HCl 2 ml 1X PRN PRN ID IV START; Start 05/27/16 at 11:45; Stop at 11:44; Status DC Hydromorphone HCl 0.5 mg 0.5 mg PRN Q10MIN PRN IV SEV PAIN,Second choice Last administered on 05/27/16 18:08; Start 05/27/16 at 11:45; Stop 05/28/16 at 11:44; Status DC Sodium Chloride/ Potassium Chloride/ Potassium Phosphate/ Magnesium Sulfate/ Calcium Gluconate/ Multivitamins/ Minerals/Chromium/ Copper/Manganese/ Seleni/Zn /Total Parenteral Nutrition/Amino Acids/Dextrose/ Fat Emulsion Intravenous ( Sodium Chloride/ Potassium Phospha... 1,512 ml @ 63 mls/hr TPN CONT IV Last administered on 05/27/16 21:09; Start 05/27/16 at 22:00; Stop 05/28/16 at 21:59; Status DC Dexamethasone Sodium Phosphate (Decadron) 20 mg STK-MED ONCE .ROUTE ; Start 05/27 at 13:13; Stop 05/27/16 at 13:14; Status DC Famotidine (Pepcid) 20 mg STK-MED ONCE .ROUTE ; Start 05/27/16 at 13:13; Stop 05/27/16 at 13:14; Status DC Ondansetron HCl 4 mg 4 mg STK-MED ONCE .ROUTE ; Start 05/27/16 at 13:13; Stop 05/27/16 at 13:14; Status DC Propofol (Diprivan) 20 ml @ As Directed STK-MED ONCE IV ; Start 05/27/16 at 13:13 ; Stop 05/27/16 at 13:14; Status DC Lidocaine HCl 100 mg STK-MED ONCE .ROUTE ; Start 05/27/16 at 13:13; Stop 05/27/16 at 13:14; Status DC Fentanyl Citrate (Fentanyl 2ml Vial) 100 mcg STK-MED ONCE .ROUTE ; Start at 13:13; Stop 05/27/16 at 13:14; Status DC Rocuronium Vernon 50 mg 50 mg STK-MED ONCE .ROUTE ; Start 05/27/16 at 13:13; Stop 05/27/16 at 13:14; Status DC Cefoxitin Sodium 100 ml @ 200 mls/hr 1X ONCE IV Last administered on t 13:49; Start 05/27/16 at 13:30; Stop 05/27/16 at 13:59; Status DC Cefoxitin Sodium (Mefoxin 2gm Ivpb For Omni) 100 ml @ As Directed STK-MED ONCE IV ; Start 05/27/16 at 13:20; Stop 05/27/16 at 13:21; Status DC Succinylcholine Chloride (Anectine) 200 mg STK-MED ONCE .ROUTE ; Start 05/27/16 at 13:21; Stop 05/27/16 at 13:22; Status DC Fentanyl Citrate (Fentanyl 2ml Vial) 100 mcg STK-MED ONCE .ROUTE ; Start at 13:55; Stop 05/27/16 at 13:56; Status DC Vecuronium Vernon (Norcuron Bolus) 10 mg STK-MED ONCE IV ; Start 05/27/16 at 14: 57; Stop 05/27/16 at 14:58; Status DC Morphine Sulfate 10 mg STK-MED ONCE .ROUTE ; Start 05/27/16 at 15:01; Stop at 15:02; Status DC Neostigmine Methylsulfate 5 mg STK-MED ONCE .ROUTE ; Start 05/27/16 at 15:30; Stop 05/27/16 at 15:31; Status DC Glycopyrrolate (Robinul) 1 mg STK-MED ONCE .ROUTE ; Start 05/27/16 at 15:30; Stop 05/27/16 at 15:31; Status DC Desflurane (Suprane) 90 ml STK-MED ONCE IH ; Start 05/27/16 at 15:47; Stop at 15:48; Status DC Sodium Chloride (Normal Saline Flush) 3 ml QSHIFT PRN IV AFTER MEDS AND BLOOD DRAWS; Start 05/27/16 at 16:00; Status UNV Sodium Chloride 3 ml 3 ml QSHIFT PRN IV AFTER MEDS AND BLOOD DRAWS; Start at 16:00; Status UNV Cefoxitin Sodium 2 gm/Sodium Chloride 100 ml @ 200 mls/hr Q6H IV Last administered on 05/28/16 08:02; Start 05/27/16 at 20:00; Stop 05/28/16 at 08:29; Status DC Metronidazole (FLAGYL 500Mmg PREMIX) 100 ml @ 100 mls/hr Q12HR IV Last administered on 05/28/16 21:05; Start 05/27/16 at 21:00; Stop 05/28/16 at 22:00; Status DC Sodium Chloride 3 ml 3 ml QSHIFT PRN IV AFTER MEDS AND BLOOD DRAWS; Start at 16:15 Hydromorphone HCl (Dilaudid Standard [employer]) 30 ml @ 0 mls/hr CONT PRN PRN IV PROTOCOL Last administered on 05/29/16 20:04; Start 05/27/16 at 16:15; Stop at 12:09; Status DC Senna/Docusate Sodium (Senna Plus) 1 tab BID PO Last administered on 05/31/16 08:14; Start 05/27/16 at 21:00 Lidocaine HCl 100 mg STK-MED ONCE .ROUTE ; Start 05/27/16 at 16:51; Stop 05/27/16 at 16:52; Status DC Lidocaine HCl 100 mg 100 mg 1X ONCE IV Last administered on 05/27/16 16:52; Start 05/27/16 at 16:52; Stop 05/27/16 at 17:01; Status DC Sodium Chloride/ Potassium Chloride/ Potassium Phosphate/ Magnesium Sulfate/ Calcium Gluconate/ Multivitamins/ Minerals/Chromium/ Copper/Manganese/ Seleni/Zn /Total Parenteral Nutrition/Amino Acids/Dextrose/ Fat Emulsion Intravenous ( Sodium Chloride/ Potassium Phospha... 1,512 ml @ 63 mls/hr TPN CONT IV Last administered on 05/28/16 21:05; Start 05/28/16 at 22:00; Stop 05/29/16 at 21:59; Status DC Ketorolac Tromethamine (Toradol) 15 mg Q6HRS IV Last administered on 05/31/16 06:39; Start 05/28/16 at 12:00; Stop 06/02/16 at 11:59 Fentanyl (Duragesic 25mcg/ Hr Patch) 1 patch Q3DAYS TD Last administered on 05/29 11:30; Start 05/29/16 at 11:30 Fentanyl 1 patch 1 patch Q3DAYS TD ; Start 05/29/16 at 11:30; Status Cancel Sodium Chloride/ Potassium Chloride/ Potassium Phosphate/ Magnesium Sulfate/ Calcium Gluconate/ Multivitamins/ Minerals/Chromium/ Copper/Manganese/ Seleni/Zn /Total Parenteral Nutrition/Amino Acids/Dextrose/ Fat Emulsion Intravenous ( Sodium Chloride/ Potassium Phospha... 1,512 ml @ 63 mls/hr TPN CONT IV Last administered on 05/29/16 22:00; Start 05/29/16 at 22:00; Stop 05/30/16 at 21:59; Status DC Oxycodone/ Acetaminophen (Percocet 5/325) 1 tab PRN Q4HRS PRN PO MILD-MOD PAIN Last administered on 05/30/16 16:35; Start 05/30/16 at 12:15 Oxycodone/ Acetaminophen 2 tab 2 tab PRN Q4HRS PRN PO SEVERE PAIN Last administered on 05/31/16 10:08; Start 05/30/16 at 12:15 Sodium Chloride/ Potassium Chloride/ Potassium Phosphate/ Magnesium Sulfate/ Calcium Gluconate/ Multivitamins/ Minerals/Chromium/ Copper/Manganese/ Seleni/Zn /Total Parenteral Nutrition/Amino Acids/Dextrose/ Fat Emulsion Intravenous ( Sodium Chloride/ Potassium Phospha... 1,512 ml @ 63 mls/hr TPN CONT IV Last administered on 05/30/16 21:35; Start 05/30/16 at 22:00; Stop 05/31/16 at 21:59 Polyethylene Glycol (miraLAX PACKET) 17 gm PRN DAILY PRN PO CONSTIPATION; Start 05/31/16 at 10:30 Vitals/I & O Vital Sign - Last 24 Hours 05/30/16 05/30/16 05/30/16 05/30/16 11:00 15:00 16:35 17:36 Temp 98.6 98.0 98.6 98.0 Pulse 80 83 Resp 18 18 B/P 146/84 146/79 Pulse Ox 96 95 O2 Delivery Room Air Room Air Room Air Room Air 05/30/16 05/30/16 05/30/16 05/30/16 19:41 19:55 20:41 21:45 Temp 97.6 97.6 Pulse 80 Resp 16 20 20 B/P 143/83 Pulse Ox 97 97 97 O2 Delivery Nasal Cannula Nasal Cannula Nasal Cannula Nasal Cannula O2 Flow Rate 2.0 2.0 2.0 2.0 05/30/16 05/30/16 05/31/16 05/31/16 22:55 23:19 03:01 07:00 Temp 97.7 97.6 97.5 97.7 97.6 97.5 Pulse 76 85 80 Resp 18 16 18 B/P 168/87 156/84 159/90 Pulse Ox 97 98 96 O2 Delivery Nasal Cannula Room Air Room Air Nasal Cannula O2 Flow Rate 2.0 2.0 05/31/16 05/31/16 10:01 10:08 Resp 20 O2 Delivery Room Air Room Air Intake and Output 05/30/16 05/30/16 05/31/16 15:00 23:00 07:00 Intake Total 300 ml 120 ml 973 ml Balance 300 ml 120 ml 973 ml VALENTÍN ROBLES MD May 31, 2016 10:41
[2016-05-31 11:00] VITALS: BP 160/83
--- NOTE | 2016-05-31 11:01 | PDOC ---
Provider Note Provider Note +bm. +flatus. josh full liquids. hungry afeb vss abd soft nd nt inc i removed aly. wound is clean, loosely approximated a/p dc tpn soft diet. likely home tomorrow. d/w him and he is agreeable. PRIETO NEWTON MD May 31, 2016 11:01
[2016-05-31 15:00] VITALS: BP 145/79
--- NOTE | 2016-05-31 15:04 | PATHOLOGY ---
PATHOLOGY REPORT * * * * * * * * FINAL DIAGNOSIS: Segment of colon and attached mesocolon, sigmoid colon segmental resection: - Diverticulosis. - Acute and chronic diverticulitis with pericolic abscess and focal perforation. COMMENT: There is no evidence of malignancy. (JPM:csd; d/t: 05/31/2016) REPORT ELECTRONICALLY SIGNED BY: Be Lema M.D. DATE/TIME: 05/31/2016 15:04 * * * * * * * * GROSS PATHOLOGY: The specimen is received in formalin, labeled "Cheo Naqvi and sigmoid colon, stitch is distal." Received is a previously opened segment of colon oriented with a stitch placed at the distal aspect. The specimen measures 14.3 cm in length, 2.3 cm in average diameter, and has up to 5.3 cm in length of attached pericolic fat. The specimen displays 2 stapled margins. The specimen displays a 6.8 x 0.3 cm in length circular and open defect, consistent with a perforation, located 5.0 cm from the nearest (proximal) margin. The serosa and pericolic fat surrounding the possible perforation is dusky red, displays white-lemos exudate, and is inked blue. The remaining colonic serosa is pink-lemos to red-lemos and glistening. The specimen is opened to reveal few intact and fecal filled diverticula ranging from 0.5-0.7 cm in greatest dimension. The remaining mucosa is lemos-brown with the usual architectural folds. No masses are grossly identified. The wall is thickened and measures up to 0.7 cm. Dissection of the pericolic fat reveals no grossly identifiable lymph nodes. A1 proximal margin, en face A2 distal margin, en face A3-A5 perforation A6 diverticula (TTL; 05/30/2016) INITIAL CPT CODE(S): 40320 Professional services performed by [facility] at [facility] [address] [place] [address] Technical services performed by [facility] at [address] [place] [address], [address], [place] [address]. SPECIMEN(S) RECEIVED: A.Sigmoid colon CLINICAL HISTORY: Acute perforated sigmoid PATIENT: CHEO NAQVI /AGE: 4 1965 (Age: 50) PATIENT #: [id number] ALT CASE #: SPECIMEN COLLECTION DATE: 05/27/2016 SPECIMEN RECEIVED DATE: 05/30/2016 [facility] - [id number] [address] - PHONE: [phone] * * * END OF REPORT * * *
[2016-05-31] MEDS: FENTANYL 25MCG/HR PATCH. TD SCH (16:03)
[2016-05-31 19:00] VITALS: BP 137/76
[2016-05-31] MEDS ORDERED: DEXTROSE 70% IV SCH ×10 (22:00)
[2016-05-31] MEDS ORDERED: [UNRECOGNIZED DRUG - OTHER] IV SCH ×10 (22:00)
[2016-05-31] MEDS ORDERED: AMINO ACIDS IV SCH ×10 (22:00)
[2016-05-31] MEDS ORDERED: TOTAL PARENTERAL NUTRITION IV SCH ×10 (22:00)
[2016-05-31] MEDS: FAMOTIDINE 20 MG/2 ML VIAL IVP SCH (22:07)
[2016-05-31 23:00] VITALS: BP 158/87
[2016-06-01] MEDS: KETOROLAC 15 MG/ML VIAL. IV SCH ×3 (00:24→12:00)
[2016-06-01 03:00] VITALS: BP 145/75
[2016-06-01 07:00] VITALS: BP 151/82
[2016-06-01] MEDS: SENNOSIDES/DOCUSATE 8.6/50MG TABLET. PO SCH (08:40)
[2016-06-01] MEDS: OXYCODONE/APAP 5/325 TABLET. PO PRN (08:40)
[2016-06-01] MEDS: ENOXAPARIN 40 MG/0.4 ML DISP.SYRIN. SQ SCH (08:41)
--- NOTE | 2016-06-01 09:35 | PDOC ---
Subjective: Subjective: Doing better. Less sweaty. Tolerating reg diet. Passing gas and stool. Feels abd pain managed w/ oral meds. Would like to DC. Objective: Vital Signs: Vital Signs Date Time Temp Pulse Resp B/P Pulse Ox O2 Delivery O2 Flow Rate FiO2 06/01/16 08:40 Room Air 06/01/16 07:00 97.9 84 18 151/82 96 97.9 05/31/16 20:03 2.0 PE: GEN: NAD LUNGS: clear anteriorly HEART: RRR ABD: NABS, S/ND/NT NEURO/PSYCH: A & O 3 A/P: Diverticulitis w/ abscess s/p sigmoid resection -- Improved. DC per primary/surgery. MIRNA PALACIOS Jun 01, 2016 09:35
[2016-06-01 10:41] VITALS: BP 165/86
--- NOTE | 2016-06-01 12:40 | PDOC ---
Provider Note Provider Note josh po. +bm. wants to go home afeb vss abd soft, nd nt inc clean. loosely approximated a/p agree with dc home. PRIETO NEWTON MD Jun 01, 2016 12:40
--- NOTE | 2016-06-01 23:57 | PDOC ---
GENERAL General: see discharge summary. Problems: VITAL SIGNS Vital Signs: Vital Signs Date Time Temp Pulse Resp B/P Pulse Ox O2 Delivery O2 Flow Rate FiO2 06/01/16 10:41 97.5 80 18 165/86 98 Room Air 97.5 05/31/16 20:03 2.0 I & O I & O Intake and Output 06/01/16 07:00 Intake Total 1590 ml Balance 1590 ml Intake Oral 1590 ml ALLERGIES Allergies: Allergies Coded Allergies Type Severity Reaction Last Updated Verified No Known Drug Allergies 02/26/15 No MEDS Medications: Current Medications Medications (Trade) Dose Ordered Sig/[place]elson Start Time Stop Time Status Last Admin Dose Admin Amino Acids/ Glycerin/ Electrolytes (Procalamine) 1,000 ml @ 80 mls/hr [id number] 05/26/16 14:15 05/27/16 21:59 DC 05/26/16 15:09 80 MLS/HR Cefoxitin Sodium (Mefoxin 2gm Ivpb For Omni) 100 ml @ As Directed STK-MED ONCE 05/27/16 13:20 05/27/16 13:21 DC Cefoxitin Sodium 2 gm/Sodium Chloride 100 ml @ 200 mls/hr Q6H 05/27/16 20:00 05/28/16 08:29 DC 05/28/16 08:02 200 MLS/HR Ciprofloxacin Lactate (Cipro 400mg Premix) 200 ml @ 200 mls/hr Q12HR 05/22/16 21:00 UNV Desflurane 90 ml 90 ml STK-MED ONCE 05/27/16 15:47 05/27/16 15:48 DC Dexamethasone Sodium Phosphate (Decadron) 20 mg STK-MED ONCE 05/27/16 13:13 05/27/16 13:14 DC Dextrose/Sodium Chloride (Iv D5% - NS) 1,000 ml @ 100 mls/hr Q10H 05/23/16 18:30 05/27/16 07:08 DC 05/26/16 06:18 100 MLS/HR Enoxaparin Sodium (Lovenox 40mg Syringe) 40 mg Q12HR 05/26/16 15:00 06/01/16 13:38 DC 06/01/16 08:41 40 MG Famotidine (Pepcid) 20 mg STK-MED ONCE 05/27/16 13:13 05/27/16 13:14 DC Fentanyl (Duragesic 25mcg/ Hr Patch) 1 patch Q3DAYS 05/29/16 11:30 Cancel Fentanyl Citrate (Fentanyl 2ml Vial) 100 mcg STK-MED ONCE 05/27/16 13:55 05/27/16 13:56 DC Fentanyl Citrate (Fentanyl 5ml Vial) 100 mcg 1X ONCE 05/25/16 14:15 05/25/16 14:16 DC 05/25/16 14:40 150 MCG Glycopyrrolate (Robinul) 1 mg STK-MED ONCE 05/27/16 15:30 05/27/16 15:31 DC Hydromorphone HCl (Dilaudid Standard PSYCHIATRIC THERAPIST) 30 ml @ 0 mls/hr CONT PRN PRN 05/27/16 16:15 05/30/16 12:09 DC 05/29/16 20:04 0 MLS/HR Hydromorphone HCl (Dilaudid) 0.5 mg PRN Q10MIN PRN 05/27/16 11:45 05/28/16 11:44 DC 05/27/16 18:08 0.5 MG Hydromorphone HCl 1 mg 1 mg PRN Q3HRS PRN 05/22/16 12:45 06/01/16 13:38 DC 05/27/16 10:02 1 MG Influenza Virus Vaccine Quadrival 0.5 ml 0.5 ml ONCE ONCE 05/23/16 10:00 05/23/16 10:01 DC Info (Do NOT chart on this entry -- for MONITORING) 1 each PRN DAILY PRN 05/25/16 06:45 05/27/16 06:44 DC Info (Do NOT chart on this placeholder) 1 each PRN 1X PRN 05/23/16 09:15 UNV Info 1 each 1 each PRN DAILY PRN 05/26/16 10:45 05/31/16 13:41 DC 05/30/16 14:07 1 EACH Iohexol (Omnipaque 240 Mg/ml) 30 ml 1X ONCE 05/25/16 06:45 05/25/16 06:46 DC Iohexol (Omnipaque 300 Mg/ml) 75 ml 1X ONCE 05/25/16 10:15 05/25/16 10:16 DC Ketorolac Tromethamine (Toradol) 15 mg Q6HRS 05/28/16 12:00 06/01/16 13:38 DC 06/01/16 06:12 15 MG Lactated Ringer's (Iv Lactated Ringers) 1,000 ml @ 30 mls/hr Q24H 05/27/16 11:42 05/27/16 23:41 DC 05/27/16 13:15 30 MLS/HR Lidocaine HCl 100 mg 1X ONCE 05/27/16 16:52 05/27/16 17:01 DC 05/27/16 16:52 100 MG Lidocaine/Sodium Bicarbonate (Buffered Lidocaine 1%) 20 ml 1X ONCE 05/25/16 14:15 05/25/16 14:16 DC 05/25/16 14:40 20 ML Metoclopramide HCl (Reglan) 10 mg PRN Q6HRS PRN 05/26/16 10:45 06/01/16 13:38 DC 05/29/16 05:44 10 MG Metronidazole (FLAGYL 500Mmg PREMIX) 100 ml @ 100 mls/hr Q12HR 05/27/16 21:00 05/28/16 22:00 DC 05/28/16 21:05 100 MLS/HR Midazolam HCl (Versed) 2 mg 1X ONCE 05/25/16 14:15 05/25/16 14:16 DC 05/25/16 14:40 3 MG Morphine Sulfate 10 mg STK-MED ONCE 05/27/16 15:01 05/27/16 15:02 DC Morphine Sulfate 1 mg 1 mg PRN Q10MIN PRN 05/27/16 11:45 05/28/16 11:44 DC Neostigmine Methylsulfate 5 mg STK-MED ONCE 05/27/16 15:30 05/27/16 15:31 DC Ondansetron HCl (Zofran) 4 mg PRN Q8HRS PRN 05/22/16 12:45 05/23/16 12:44 DC 05/22/16 21:22 4 MG Ondansetron HCl 4 mg 4 mg STK-MED ONCE 05/27/16 13:13 05/27/16 13:14 DC Oxycodone/ Acetaminophen (Percocet 5/325) 2 tab PRN Q4HRS PRN 05/30/16 12:15 06/01/16 13:38 DC 06/01/16 08:40 2 TAB Polyethylene Glycol 17 gm 17 gm PRN DAILY PRN 05/31/16 10:30 06/01/16 13:38 DC Propofol (Diprivan) 20 ml @ As Directed STK-MED ONCE 05/27/16 13:13 05/27/16 13:14 DC Rocuronium [place] 50 mg 50 mg STK-MED ONCE 05/27/16 13:13 05/27/16 13:14 DC Senna/Docusate Sodium (Senna Plus) 1 tab BID 05/27/16 21:00 06/01/16 13:38 DC 05/31/16 22:07 1 TAB Sodium Chloride 1,000 ml @ 125 mls/hr 1X ONCE 05/22/16 13:30 05/22/16 21:29 DC 05/22/16 14:06 125 MLS/HR Sodium Chloride (Iv Sodium Chloride 0.9% 1000ml Bag) 1,000 ml @ 1,000 mls/hr 1X ONCE 05/22/16 09:45 05/22/16 10:44 DC 05/22/16 09:39 1,000 MLS/HR Sodium Chloride 3 ml 3 ml QSHIFT PRN 05/27/16 16:15 06/01/16 13:38 DC Sodium Chloride/ Potassium Chloride/ Potassium Phosphate/ Magnesium Sulfate/ Calcium Gluconate/ Multivitamins/ Minerals/Chromium/ Copper/Manganese/ Seleni/Zn/Total Parenteral Nutrition/Amino Acids/Dextrose/ Fat Emulsion Intravenous (Sodium Chloride/ Potassium Phospha... 1,512 ml @ 63 mls/hr TPN CONT 05/31/16 22:00 06/01/16 21:59 Cancel Succinylcholine Chloride (Anectine) 200 mg STK-MED ONCE 05/27/16 13:21 05/27/16 13:22 DC Vecuronium [place] (Norcuron Bolus) 10 mg STK-MED ONCE 05/27/16 14:57 05/27/16 14:58 DC VALENTÍN ROBLES MD Jun 01, 2016 23:57
== END 2016-06-01 13:25 | disposition home or self-care (01) | DRG 330 ==
LOC: ER 08:58 → 2 SOUTH 12:03 → 4 NORTH 05-24 13:40 → 1 WEST ICU 05-27 19:38 → 4 NORTH 05-29 17:00
PROVIDERS: ADMIT Family Medicine; ATTEND Family Medicine
PROC: 0W9G30Z Drainage of Peritoneal Cavity with Drainage Device, Percutaneous Approach (ICD-10-PCS; principal; 2016-05-26)
PROC: 5A09357 Assistance with Respiratory Ventilation, Less than 24 Consecutive Hours, Continuous Positive Airway Pressure (ICD-10-PCS; 2016-05-26)
PROC: 0DTN0ZZ Resection of Sigmoid Colon, Open Approach (ICD-10-PCS; 2016-05-27)
PROC: 0DJD8ZZ Inspection of Lower Intestinal Tract, Via Natural or Artificial Opening Endoscopic (ICD-10-PCS; 2016-05-27)
PROC: 02HV33Z Insertion of Infusion Device into Superior Vena Cava, Percutaneous Approach (ICD-10-PCS; 2016-05-27)
PROC: B5181ZA Fluoroscopy of Superior Vena Cava using Low Osmolar Contrast, Guidance (ICD-10-PCS; 2016-05-27)
DX: K57.20 Diverticulitis of large intestine with perforation and abscess without bleeding (principal); Z68.41 Body mass index [BMI] 40.0-44.9, adult; E27.49 Other adrenocortical insufficiency; K91.3 Postprocedural intestinal obstruction; K58.9 Irritable bowel syndrome, unspecified; K21.9 Gastro-esophageal reflux disease without esophagitis; J44.9 Chronic obstructive pulmonary disease, unspecified; Z87.820 Personal history of traumatic brain injury; F12.90 Cannabis use, unspecified, uncomplicated; G47.33 Obstructive sleep apnea (adult) (pediatric); E66.01 Morbid (severe) obesity due to excess calories; K76.0 Fatty (change of) liver, not elsewhere classified; K66.8 Other specified disorders of peritoneum; I49.3 Ventricular premature depolarization; Z80.0 Family history of malignant neoplasm of digestive organs; Z83.3 Family history of diabetes mellitus; Z90.49 Acquired absence of other specified parts of digestive tract; Z87.891 Personal history of nicotine dependence
CPT/HCPCS: 36415; 49406; 71010; 74177; 80048; 80053; 81001; 83690; 83735; 84100; 84478; 85027; 87071; 87075; 87186; 87205; 87641; 88307; 93005; 93306; 96361; 96374; 96375; A4215; C1729; C1892; G0480; G0481; J0330; J0610; J0694; J0744; J1100; J1170; J1650; J1885; J2250; J2270; J2405; J2704; J2710; J2765; J3010; J3475; J3490; J7030; J7042; J7120; Q9967; S0028; 97116; 99285-25

== ENCOUNTER 2016-09-25 08:12 | Emergency (ER) | payer OTHER ==
[~2016-09-25] VITALS: Ht 177.8 cm; Wt 127.0 kg
[2016-09-25] MEDS ORDERED: KETOROLAC TROMETHAMINE 60 MG/2 ML INJ. IM ONE (08:45)
[2016-09-25] MEDS ORDERED: diazePAM 5 MG TABLET PO ONE (08:45)
[2016-09-25] MEDS ORDERED: oxyCODONE/APAP 5/325 1 TAB TABLET PO ONE (08:45)
--- NOTE | 2016-09-25 09:03 | RAD ---
Indication: Low back pain worse on the right side. Time of exam 0849 hours. 3 views of the lumbar spine were obtained. Curvature and alignment is normal. Vertebral body heights are well-maintained. No acute compression fracture is seen. There is mild degenerative disc disease and disc space narrowing L5-S1. Multilevel minimal marginal spurring is seen. Impression: Lumbar spondylosis. No acute bony abnormality is detected.
[2016-09-25 09:04] LABS: BILIRUBIN,URINE NEGATIVE (NEG); GLUCOSE,URINE NEGATIVE (NEG); NITRITE,URINE NEGATIVE (NEG); PH,URINE 6.5; PROTEIN,URINE NEGATIVE (NEG-TRACE); UROBILINOGEN,URINE 0.2 mg/dL (0.2 mg/dL)
--- NOTE | 2016-09-25 09:08 | PHYS DOC ---
Past Medical History Past Medical History: COPD Past Surgical History: Cholecystectomy, Other Additional Past Surgical Histo: MULTIPLE HERNIA REPAIRS, LAST BEING 2008 Alcohol Use: None Drug Use: Marijuana Social History Narrative: PT REPORTS THAT HE HAS NOT SMOKED MARIJUANA FOR 9 DAYS NOW Adult General Chief Complaint Chief Complaint: LOWER BACK PAIN OR INJURY HPI HPI Patient is a 51 year old male presenting to the emergency department for evaluation of low back pain that has been going on for 3 days and he says that it is getting worse despite ibuprofen treatment at home. Patient says it is left paraspinal and midline lumbar pain that is worse with movements of his torso and bending or twisting motions. He denies any radicular symptoms and he also denies any bowel or bladder incontinence weakness numbness or tingling. He says that he has chronic low back pain and follows with a chiropractor. He is in no obvious distress with normal vital signs. Review of Systems Review of Systems Constitutional: Denies fever or chills [] Respiratory: Denies cough or shortness of breath [] GI: Denies abdominal pain, nausea, vomiting, bloody stools or diarrhea [] : Denies dysuria or hematuria [] Musculoskeletal: + back pain. No joint pain [] Neurologic: Denies headache, focal weakness or sensory changes [] Current Medications Current Medications Current Medications Medications (Trade) Dose Ordered Sig/[facility] Start Time Stop Time Status Last Admin Dose Admin Diazepam (Valium) 10 mg 1X ONCE 09/25/16 08:45 09/25/16 08:46 DC 09/25/16 08:56 10 MG Ketorolac Tromethamine (Toradol Im) 60 mg 1X ONCE 09/25/16 08:45 09/25/16 08:46 DC 09/25/16 08:56 60 MG Oxycodone/ Acetaminophen (Percocet 5/325) 2 tab 1X ONCE 09/25/16 08:45 09/25/16 08:46 DC 09/25/16 08:56 2 TAB Allergies Allergies Allergies Coded Allergies Type Severity Reaction Last Updated Verified No Known Drug Allergies 02/26/15 No Physical Exam Physical Exam Constitutional: Well developed, well nourished, no acute distress, non-toxic appearance. [] Cardiovascular:Heart rate regular rhythm, no murmur [] Lungs & Thorax: Bilateral breath sounds clear to auscultation [] Back: Left lower lumbar paraspinal tenderness in addition to midline tenderness to palpation. Extremities: No tenderness, no cyanosis, no clubbing, ROM intact, no edema. [] Neurologic: Alert and oriented X 3, normal motor function, normal sensory function, no focal deficits noted. [] Current Patient Data Vital Signs Vital Signs Date Time Temp Pulse Resp B/P (MAP) Pulse Ox O2 Delivery O2 Flow Rate FiO2 09/25/16 08:24 97.6 61 18 178/84 (115) 99 Room Air 97.6 Lab Values Laboratory Tests Test 09/25/16 08:50 Urine Collection Type Unknown Urine Color Yellow Urine Clarity Clear Urine pH 6.5 Urine Specific [place] 1.025 Urine Protein Negative mg/dL (NEG-TRACE) Urine Glucose (UA) Negative mg/dL (NEG) Urine Ketones (Stick) Negative mg/dL (NEG) Urine Blood Negative (NEG) Urine Nitrite Negative (NEG) Urine Bilirubin Negative (NEG) Urine Urobilinogen Dipstick 0.2 mg/dL (0.2 mg/dL) Urine Leukocyte Esterase Negative (NEG) Urine RBC Occ /HPF (0-2) Urine WBC Occ /HPF (0-4) Urine Squamous Epithelial Cells Few /LPF Urine Bacteria Few /HPF (0-FEW) Urine Mucus Marked /LPF EKG EKG [] Radiology/Procedures Radiology/Procedures Indication: Low back pain worse on the right side. Time of exam 0849 hours. 3 views of the lumbar spine were obtained. Curvature and alignment is normal. Vertebral body heights are well-maintained. No acute compression fracture is seen. There is mild degenerative disc disease and disc space narrowing L5-S1. Multilevel minimal marginal spurring is seen. Impression: Lumbar spondylosis. No acute bony abnormality is detected. DICTATED and SIGNED BY: LISA GALE MD DATE: 09/25/16 0878 Course & Med Decision Making Course & Med Decision Making Patient with lower back pain that is worse with movement and palpation and likely represents musculoskeletal low back pain. His x-ray appears normal and urinalysis shows no blood so he'll be treated supportively as an outpatient with anti-inflammatories and pain medicine and PCP follow-up later this week to ensure improvement. Patient told to come back to the emergency department with any new or worsening pain weakness or incontinence or other general concerns. Dragon Disclaimer Dragon Disclaimer This electronic medical record was generated, in whole or in part, using a voice recognition dictation system. Departure Departure Impression: Primary Impression: Low back pain Disposition: 01 HOME, SELF-CARE Condition: GOOD Referrals: VALENTÍN ROBLES MD (PCP) Patient Instructions: Low Back Strain with Rehab-[facility] Additional Instructions: Take 400 mg of ibuprofen every 6 hours and the Percocet for breakthrough pain. The Valium is for spasm. He should not lift anything over 10 pounds for the next 3 days and she be reassessed by her primary care physician and may require physical therapy referral. Scripts Diazepam (VALIUM) 5 Mg Tablet 5 MG PO TID Y for MUSCLE SPASMS, #10 TAB Prov: MARTIN PLUMMER DO 09/25/16 Oxycodone/Apap 5-325 (PERCOCET 5-325 MG TABLET) 1 Each Tablet 1 TAB PO PRN Q6HRS Y for PAIN, #14 TAB 0 Refills Prov: MARTIN PULMMER DO 09/25/16 Problem Qualifiers Primary Impression: Low back pain Chronicity: acute Back pain laterality: midline Sciatica presence: without sciatica Qualified Codes: M54.5 - Low back pain MRATIN PLUMMER DO Sep 25, 2016 09:08
[2016-09-25 09:13] LABS: BACTERIA,URINE FEW /HPF (0-FEW); RBC,URINE OCC /HPF (0-2); SQUAMOUS EPITHELIAL CELL,UR FEW /LPF; WBC,URINE OCC /HPF (0-4)
[2016-09-25] MEDS ORDERED: DIAZ5TAB PO (09:22)
[2016-09-25] MEDS ORDERED: OXYC-323 PO (09:22)
[2016-09-25 09:27] VITALS: BP 143/77
== END 2016-09-25 09:32 | disposition home or self-care (01) ==
LOC: ER 08:12
DX: M54.5 Low back pain (principal); J44.9 Chronic obstructive pulmonary disease, unspecified; F12.10 Cannabis abuse, uncomplicated; Z90.49 Acquired absence of other specified parts of digestive tract
CPT/HCPCS: 72100; 81001; 96372; 99285; J1885

== ENCOUNTER → 2016-10-18 | Outpatient (CLI) | payer OTHER ==
[2016-09-25 09:27] VITALS: BP 143/77
[~2016-10-18] MED LIST: CELE100C PO; CELE200C PO; CYCL10TA2 PO; DIAZ5TAB PO; DOCU-150 PO; IOHEXOL 180 MG/ML 10 ML VIAL. ONE; OMEG-155 PO; OXYC-323 PO; OXYC-328 PO; methylPREDNISolone ACETATE 40 MG/ML VIAL. ONE; methylPREDNISolone ACETATE 80 MG/ML VIAL. ONE
== END | disposition home or self-care (01) ==
LOC: PNCL 09:40
PROVIDERS: ATTEND Anesthesiology
DX: M51.36 Other intervertebral disc degeneration, lumbar region (principal); J44.9 Chronic obstructive pulmonary disease, unspecified; K21.9 Gastro-esophageal reflux disease without esophagitis; E66.9 Obesity, unspecified; Z90.49 Acquired absence of other specified parts of digestive tract; Z68.43 Body mass index [BMI] 50.0-59.9, adult; Z96.691 Finger-joint replacement of right hand
CPT/HCPCS: 62323; J1030; J1040

== ENCOUNTER → 2016-11-01 | Outpatient (CLI) | payer OTHER | END | disposition home or self-care (01) | LOC: PNCL 08:49 | PROVIDERS: ATTEND Anesthesiology | DX: M51.16 Intervertebral disc disorders with radiculopathy, lumbar region (principal); J44.9 Chronic obstructive pulmonary disease, unspecified; F17.200 Nicotine dependence, unspecified, uncomplicated; K21.9 Gastro-esophageal reflux disease without esophagitis; E66.9 Obesity, unspecified; Z90.49 Acquired absence of other specified parts of digestive tract; Z86.69 Personal history of other diseases of the nervous system and sense organs; Z68.43 Body mass index [BMI] 50.0-59.9, adult | CPT/HCPCS: 62323; J1030; J1040 ==

== ENCOUNTER → 2016-11-15 | Outpatient (CLI) | payer OTHER ==
--- NOTE | 2016-11-15 11:44 | PN ---
DATE: 11/15/2016 PROGRESS NOTE FOR PAIN CLINIC DIAGNOSES: Lumbar radiculopathy with lumbar degenerative disk disease. HISTORY OF PRESENT ILLNESS: The patient is a 51-year-old male who returns for followup status post lumbar epidural steroid injection x 2. The patient reports he did fairly well, about 50% improvement for about 4 or 5 days, then the pain returned. He has only about 15% improvement. Currently, the patient reports pain in the low back, bilateral lower extremities, radiating to posterior gluteus, posterior thighs. It is on and off pain, is not constant, but is a stabbing, shooting, sharp and aching pain limiting his activities significantly. The patient reports worst pain is a 10 on a scale of 10, it is currently 2 on a scale of 10, today it is averaged about a 4 on a scale of 10, worse with activity, standing, walking, change in positions, has been waking him from sleep. He has difficulty getting to sleep because of the pain. The patient reports if he repositions or takes pain medication that helps the pain at night. The patient reports no new motor or sensory deficits, no new bowel or bladder incontinence or other complaints. PHYSICAL EXAMINATION: VITAL SIGNS: Today, the patient's blood pressure is 148/86, pulse 80, respirations 18, temperature 97.7 degrees Fahrenheit, height is 5 feet 10 inches, weighs 294 pounds. GENERAL: The patient is awake, alert, oriented, appropriate, has a very pleasant demeanor. HEENT: Head shows normocephalic, atraumatic. Extraocular movements are intact and symmetrical. Oral cavity shows mucous membranes moist and pink. Dentition is intact. NECK: Shows anterior throat supple without palpable lymphadenopathy noted. Swallow reflex is symmetrical. CHEST: Shows normal on inspection. Breath sounds are clear to auscultation bilaterally. HEART: Shows S1 and S2 clear. ABDOMEN: Soft, obese, nontender, nondistended. BACK: Shows spine grossly in the midline. Lumbar paraspinous muscle shows some moderate tenderness with palpation, but is symmetrical bilaterally. No tenderness over the sacrum or sacroiliac regions. The patient has full rotational motion of the lumbar spine, both laterally as well as extension and flexion without difficulty. EXTREMITIES: Lower extremities show deep tendon reflexes at 2+ in the patellar, 1+ tendo-calcaneus tendons are equal. Motor exam is strong with 5/5 dorsiflexion, extension, quadriceps and hamstring flexion symmetrical as well. Options were discussed with the patient. The patient's old chart was reviewed as his current medication regimen and updated. Current review of systems updated today as well and we will proceed with a third in the series of lumbar epidural steroid injection with fluoroscopic guidance. Risks were again discussed including, but not limited to bleeding, infection, possibility of epidural hematoma, subsequent neurologic compromise, dural puncture, headaches, spinal cord and/or nerve damage, side effects of steroid medication and poor results regarding pain control. The patient understands and wishes to proceed. The patient will return to clinic in approximately 2 weeks for followup. He was counseled on return appointment, activity level, side effects to be aware of. DIAGNOSIS: Lumbar radiculopathy with lumbar degenerative disk disease. PROCEDURE: Lumbar epidural steroid injection in translaminar approach at the L5-S1 level using C-arm fluoroscopic guidance under sterile prep and drape using local anesthetic. MEDICATIONS INJECTED: A 120 mg Depo-Medrol plus 10 mL preservative-free normal saline and 2 mL of Isovue for contrast. CONDITION AT DISCHARGE: Stable. The patient tolerated the procedure well, had no complications. FEDE RAMIREZ MD DR: SOURAV/lisa JOB#: [id number] / [id number]
== END | disposition home or self-care (01) ==
LOC: PNCL 08:27
PROVIDERS: ATTEND Anesthesiology
DX: M51.16 Intervertebral disc disorders with radiculopathy, lumbar region (principal); J44.9 Chronic obstructive pulmonary disease, unspecified; E66.9 Obesity, unspecified; Z68.43 Body mass index [BMI] 50.0-59.9, adult; K21.9 Gastro-esophageal reflux disease without esophagitis; F17.200 Nicotine dependence, unspecified, uncomplicated; Z90.49 Acquired absence of other specified parts of digestive tract; Z96.691 Finger-joint replacement of right hand
CPT/HCPCS: 62323; J1030; J1040

== ENCOUNTER → 2016-12-21 | Outpatient (CLI) | payer OTHER ==
[~2016-12-21] MED LIST changes: +BUPIVACAINE MPF 0.25% 10 ML VIAL. ONE
--- NOTE | 2016-12-21 14:52 | PAIN ---
DATE OF SERVICE: 12/21/2016 DIAGNOSES: Lumbar radiculopathy with lumbar degenerative disk disease and lumbar spondylosis. HISTORY OF PRESENT ILLNESS: The patient is a 51-year-old male who returns for followup status post lumbar epidural steroid injections x 3 with good initial results about 50% improvement overall, still some pain across the low back, into the hips and lower extremities, however. The patient reports still some significant pain with walking, standing, especially with prolonged sitting and standing for more than about 15-20 minutes. The patient reports an aching, sharp, shooting, tingling, pain rates a 10 on a scale of 10 at its worst, 5 on average and a 2 on a scale of 10 currently. The patient reports no new motor or sensory deficits, reports it does wake him from sleep at night about once a night. He has to reposition to get in bed, to reposition and get the pain down. The patient reports no bowel or bladder incontinence or other complaints. PHYSICAL EXAMINATION: VITAL SIGNS: Today, his blood pressure is 152/98, pulse 72, respirations are 18, temperature is 97.4 degrees Fahrenheit, height is 5 feet 9 inches, weight is 298 pounds. GENERAL: The patient is awake, alert, oriented, appropriate, very pleasant demeanor. HEENT: Head shows normocephalic, atraumatic. Extraocular movements are intact and symmetrical. Oral cavity shows mucous membranes moist and pink. Dentition is intact. NECK: Shows anterior throat supple without palpable lymphadenopathy noted. CHEST: Shows normal on inspection. Breath sounds clear to auscultation bilaterally. HEART: Shows S1 and S2 clear. ABDOMEN: Soft, nontender, nondistended. No palpable organomegaly is noted. No rebound or guarding demonstrated. BACK: Shows spine grossly in the midline, normal appearing thoracic kyphosis. Lumbar lordotic curvature is slightly flattened. Lumbar paraspinous muscle shows symmetrical on inspection, some moderate tenderness with palpation with only diffuse tenderness though in the lower lumbar distribution. The patient shows good rotational motion; however, some tenderness with extension more on the right than the left, but present bilaterally in the lumbar spine, but good rotation laterally and forward flexion without significant pain reported. EXTREMITIES: The patient's lower extremities showed deep tendon reflexes at 2+ in the patellar and 1+ tendo calcaneus tendons. Motor exam is strong with dorsiflexion, extension, quadriceps and hamstring flexion rated 5/5 and equal bilaterally. Options were discussed with the patient and the patient's old chart was reviewed as his current medication regimen and updated. Current review of systems is updated today as well and we will proceed with a bilateral L4-L5 and L5-S1 facet joint injections with fluoroscopic guidance. Risks were again discussed including, but not limited to bleeding, infection, possibility of epidural hematoma, subsequent neurologic compromise, dural puncture, headaches, spinal cord and/or nerve damage, side effects of steroid medication and poor results regarding pain control. The patient understands and wishes to proceed. The patient will return to clinic in approximately 2 weeks for followup. He was counseled to return appointment, activity level and side effects to be aware of. DIAGNOSIS: Lumbar spondylosis and lumbosacral spondylosis. PROCEDURE: Lumbar bilateral L4-L5 and L5-S1 facet joint injections using C-arm fluoroscopic guidance under sterile prep and drape using local anesthetic. MEDICATION INJECTED: A total of 120 mg Depo-Medrol plus total of 4 mL of 0.25% bupivacaine and 2 mL of Isovue for contrast. CONDITION AT DISCHARGE: Stable. The patient tolerated procedure well, had no complications. FEDE RAMIREZ MD DR: SOURAV/lisa JOB#: [id number] / [id number]
== END | disposition home or self-care (01) ==
LOC: PNCL 08:54
PROVIDERS: ATTEND Anesthesiology
DX: M51.16 Intervertebral disc disorders with radiculopathy, lumbar region (principal); M47.26 Other spondylosis with radiculopathy, lumbar region; M40.204 Unspecified kyphosis, thoracic region; E66.9 Obesity, unspecified; J44.9 Chronic obstructive pulmonary disease, unspecified; Z90.49 Acquired absence of other specified parts of digestive tract; Z68.43 Body mass index [BMI] 50.0-59.9, adult; Z87.891 Personal history of nicotine dependence; Z96.691 Finger-joint replacement of right hand; Z83.3 Family history of diabetes mellitus
CPT/HCPCS: 64493; 64494; J1030; J1040; J3490

== ENCOUNTER → 2017-01-04 | Outpatient (CLI) | payer OTHER ==
[~2017-01-04] MED LIST changes: +POLY17PO29 PO
--- NOTE | 2017-01-04 10:46 | PAIN ---
DATE OF SERVICE: 01/04/2017 DIAGNOSES: Lumbar radiculopathy with lumbar degenerative disk disease, lumbar spondylosis with lumbar and lumbosacral spondylosis. HISTORY OF PRESENT ILLNESS: The patient is a 51-year-old male who returns for followup status post bilateral L4-L5 and L5-S1 facet joint injections. The patient reports he did very well about a 90% improvement in the low back pain. He is very, very pleased with his progress. The patient reports it lasted for 7 days before the pain began to slightly return. It is now creeping back towards its baseline with pain in the low back bilaterally with motion, especially extension and walking, standing; better with sitting but does awake him from sleep occasionally, not every night. He can easily reposition, get back to sleep. The patient reports the pain is aching, sharp, dull, shooting, tingling in the low back itself, rated 10 on a scale of 10 at its worst, 5 on average and 2 on a scale of 10 at its least. The patient reports no new motor or sensory deficits, no new bowel or bladder incontinence or other complaints. PHYSICAL EXAMINATION: VITAL SIGNS: The patient's blood pressure was 185/93, pulse 90, respirations are 18, temperature 98.0 degrees Fahrenheit. Height is 5 feet 9 inches, weighs 298 pounds. GENERAL: The patient is awake, alert, oriented, appropriate, very pleasant demeanor. HEENT: Head shows normocephalic, atraumatic. Extraocular movements are intact and symmetrical. The patient wearing eyeglasses. Oral cavity, mucous membranes are moist and pink. Dentition is intact. NECK: Shows anterior throat supple without palpable lymphadenopathy noted. Swallow reflex is symmetrical. CHEST: Shows normal on inspection. Breath sounds are clear to auscultation bilaterally. HEART: Shows S1 and S2 clear. ABDOMEN: Soft, nontender, nondistended. No palpable organomegaly noted. No rebound or guarding demonstrated. BACK: Shows spine grossly midline. Normal appearing thoracic kyphosis and lumbar lordotic curvature. Lumbar paraspinous muscle shows symmetrical on inspection with palpation, shows some mild tenderness in the lumbar distribution bilaterally but only diffusely, more on the right than the left, with increased tenderness, no radiation. No tenderness over the sacrum or sacroiliac regions. The patient shows good rotational motion with tenderness noted, especially in the right low back with extension as well as right lateral rotation. Some mild tenderness in the left lateral rotation, but no tenderness with forward flexion on either side. EXTREMITIES: Lower extremities show deep tendon reflexes at 2+ in the patellar, 1+ tendo calcaneus tendons. Motor exam is strong with 5/5 dorsiflexion, extension and equal. Options were discussed with the patient and the patient's old chart was reviewed as his current medication regimen updated. Current review of systems updated today as well. We will proceed with bilateral L4-L5 and L5-S1 facet joint injections with fluoroscopic guidance. Risks were again discussed including, but not limited to bleeding, infection, possibility of epidural hematoma and subsequent neurologic compromise, dural punctures, headaches, spinal cord and/or nerve damage, side effects of steroid medication and poor results regarding pain control. The patient understands and wishes to proceed. The patient will return to clinic in approximately 2 weeks for followup. We discussed the possibility that if he does do as well as the first injections, we will move on to radiofrequency ablation. He is very interested in this. We will assess this when he returns. DIAGNOSES: Lumbar spondylosis with lumbar and lumbosacral spondylosis. PROCEDURE: Lumbar L4-L5 and L5-S1 facet joint injections with local anesthetic using sterile prep and drape with C-arm fluoroscopic guidance. MEDICATIONS INJECTED: A total of 120 mg Depo-Medrol plus total of 4 mL of 0.25% bupivacaine, total of 2 mL of Isovue for contrast. CONDITION AT DISCHARGE: Stable. The patient tolerated procedure well, had no complications. FEDE RAMIREZ MD DR: SOURAV/lisa JOB#: [id number] / [id number]
== END | disposition home or self-care (01) ==
LOC: PNCL 09:20
PROVIDERS: ATTEND Anesthesiology
DX: M47.26 Other spondylosis with radiculopathy, lumbar region (principal); M51.16 Intervertebral disc disorders with radiculopathy, lumbar region; J44.9 Chronic obstructive pulmonary disease, unspecified; Z90.49 Acquired absence of other specified parts of digestive tract; E66.9 Obesity, unspecified; Z68.43 Body mass index [BMI] 50.0-59.9, adult; K21.9 Gastro-esophageal reflux disease without esophagitis; G47.30 Sleep apnea, unspecified; Z87.891 Personal history of nicotine dependence; Z86.69 Personal history of other diseases of the nervous system and sense organs; Z83.3 Family history of diabetes mellitus; Z96.691 Finger-joint replacement of right hand
CPT/HCPCS: 64493; 64494; J1030; J1040; J3490

== ENCOUNTER → 2017-01-19 | Outpatient (CLI) | payer OTHER ==
[~2017-01-19] MED LIST changes: -BUPIVACAINE MPF 0.25% 10 ML VIAL. ONE; -IOHEXOL 180 MG/ML 10 ML VIAL. ONE; +PHEN15CA PO; +ZOLP12.52 PO; -methylPREDNISolone ACETATE 40 MG/ML VIAL. ONE; -methylPREDNISolone ACETATE 80 MG/ML VIAL. ONE
--- NOTE | 2017-01-20 01:37 | PN ---
DATE: 01/19/2017 PROGRESS NOTE FOR PAIN CLINIC DIAGNOSES: Lumbar radiculopathy with lumbar degenerative disk disease and lumbar spondylosis. SUBJECTIVE: The patient is a 51-year-old male who return to follow us status post bilateral facet joint injections x 2. The patient reports about 90% improvement initially with the low back pain. The patient has been doing very well with these, but they have limited to about a 2-week period. The patient reports the pain is returning now on the low back bilaterally, somewhat worse on the right than the left, but present bilaterally with tingling, stabbing, aching, sharp and shooting pain in the back itself. Rates a 10 on a scale of 10 at its worse, average at 5 and it is a 4 on a scale of 10 currently. The patient reports no new motor or sensory deficits or other complaints, much better with laying down or sitting and worse with standing, walking, changing positions, climbing stairs, etc. The patient reports no bowel or bladder incontinence. No new motor or sensory deficits. PHYSICAL EXAMINATION: VITAL SIGNS: The patient's blood pressure is 137/96, pulse 93, respirations 18 and temperature is 98.0 degrees Fahrenheit. Height is 5 foot 9 inches, weight is 294 pounds. GENERAL: The patient is awake, alert, oriented, appropriate, has a very pleasant demeanor. HEENT: Head shows normocephalic, atraumatic. Extraocular movements are intact and symmetrical. Oral cavity, mucous membranes moist and pink. Dentition is intact. NECK: Shows anterior throat supple, without palpable lymphadenopathy noted. Swallow reflex is symmetrical. CHEST: Shows normal on inspection. Breath sounds are clear to auscultation bilaterally. HEART: Shows S1 and S2 clear. No murmurs are auscultated. BACK: The patient's back shows spine grossly in the midline. Slight exaggeration of thoracic kyphosis and mild flattening of the lumbar lordotic curvature. Lumbar paraspinous muscle shows some [id number] tenderness in the middle and lower distribution of the paraspinous muscles bilaterally, but only diffusely. The patient has good rotation and motion with some increased pain with right lateral rotation past 90 degrees, but better with forward flexion. Extension causes pain in the low back bilaterally, greater than 10 degrees as well. EXTREMITIES: Lower extremities show deep tendon reflexes at 2+/4 in the patellar and tendo calcaneus tendons at 1+ bilaterally. Motor exam is strong with 5/5 dorsiflexion, extension, quadriceps and hamstring flexion and equal. Options were discussed with the patient. The patient's old chart was reviewed and the current medication regimen updated. Current review of systems updated today as well and we will renew the patient's physical therapy as he does quite well with this with a pool therapy that he has been performing and reports he feels much better in the water as opposed to out. The patient will have this renewed, was encouraged to increase his activity as tolerated. We are still waiting on preauthorization from the patient's discharge provider for regular frequency ablation as he has had 2 lumbar facet blocks with 80% plus improvement with each of these and we will plan on regular frequency ablation, bilateral L4-L5 and L5-S1 facet medial branches once this is approved. In the meantime again, physical therapy will be renewed. The patient will return to clinic once approval is obtained for radiofrequency ablation and we will pursue with that at that time. FEDE RAMIREZ MD DR: SOURAV/lisa JOB#: [id number] / [id number]
== END | disposition home or self-care (01) ==
LOC: PNCL 08:34
PROVIDERS: ATTEND Anesthesiology
DX: M51.16 Intervertebral disc disorders with radiculopathy, lumbar region (principal); M47.896 Other spondylosis, lumbar region
CPT/HCPCS: 99212

== ENCOUNTER → 2017-03-30 | Outpatient (CLI) | payer OTHER ==
[~2017-03-30] MED LIST changes: +BUPIVACAINE MPF 0.25% 10 ML VIAL. ONE; +DULO60CA6 PO; +LIDOCAINE 1% PF 2 ML VIAL. ONE; +LIDOCAINE 2% PF Vial for OR 5 ML VIAL. ONE; +NALO25TA2 PO; -PHEN15CA PO; +PHEN15CA2 PO; +PHEN37.53 PO; +TAMS0.4C2 PO; +methylPREDNISolone ACETATE 40 MG/ML VIAL. ONE; +methylPREDNISolone ACETATE 80 MG/ML VIAL. ONE
--- NOTE | 2017-03-30 09:59 | PAIN ---
DATE OF SERVICE: 03/30/2017 DIAGNOSES: Lumbar radiculopathy with lumbar degenerative disk disease and lumbosacral spondylosis. HISTORY OF PRESENT ILLNESS: The patient is a 51-year-old male who returns for followup status post bilateral lumbar facet blocks with very good results, nearly 90% improvement after 2 repeated injections. We had scheduled him for radiofrequency ablation, and he returns today wishing to proceed with this. The patient still has some pain across the low back, right side slightly worse than the left, worse with flexion, bending, stooping, twisting, walking, but without significant radiation to the lower extremity at this time. The patient reports the pain is a 10 on a scale of 10 at its worst, 7 on average and 3 on a scale of 10 at its least. Reports it is a 5 today. The patient reports no new motor or sensory deficit. It is awakening him from sleep about every 2-4 hours, especially when he lies on his right side, without new radiation, without new changes. The patient reports it is still aching, sharp, dull, tight, stabbing, cramping and becoming more constant, more severe in the low back itself. PHYSICAL EXAMINATION: VITAL SIGNS: The patient's blood pressure 141/99, pulse 114, respirations are 20, temperature 97.3 degrees Fahrenheit, height 5 feet 9 inches, weight is 293 pounds. GENERAL: The patient is awake, alert, oriented, appropriate, very pleasant demeanor. HEENT: Head shows normocephalic, atraumatic. Extraocular movements are intact, symmetrical. Oral cavity: Mucous membranes moist and pink. Dentition is intact. NECK: Shows anterior throat supple without palpable lymphadenopathy noted. Swallow reflex symmetrical. CHEST: Shows normal on inspection. Breath sounds are clear to auscultation bilaterally. HEART: Shows S1, S2 clear. No murmurs auscultated. ABDOMEN: Soft, nontender, nondistended. No palpable organomegaly is noted. BACK: Shows spine grossly in midline, some minor flattening of lumbar lordotic curvature, but paraspinous musculature shows symmetrical on inspection, with palpation shows some moderate tenderness in the middle, lower distribution, more on the right than the left, only with deep palpation, however, without radiation. No tenderness over the sacrum or sacroiliac regions. The patient shows increased pain with extension and noted bilateral right and left lower back pain with right lateral rotation, greater than about 10 degrees. Forward flexion is without significant increase or discomfort noted with forward flexion. LOWER EXTREMITIES: Show deep tendon reflexes at 2+ in the patellar and 1+ tendo calcaneus tendons are equal. Motor exam is strong with 5/5 dorsiflexion, extension, quadriceps and hamstring flexion. Peripheral pulses are 1+ posterior tibial. No peripheral edema is noted. Options were discussed with the patient. The patient's old chart was reviewed. His current medication regimen updated, current review of systems updated today as well. We will proceed with a radiofrequency ablation of the bilateral L4-L5 and L5-S1 levels using C-arm fluoroscopic guidance. Risks were again discussed including, but not limited to bleeding, infection, possibility of epidural hematoma, subsequent neurologic compromise, dural puncture, headaches, spinal cord and/or nerve damage, side effects of steroid medication, exposure to fluoroscopy, potential damage from radiofrequency thermal ablation and surrounding structures damage as well as permanent neural damage and motor loss. The patient understands and agrees, would like to proceed. Please see radiofrequency worksheet for radiofrequency levels, duration, impedance, temperature and times. The patient will return to clinic in approximately 4 weeks for followup. She was counseled on return appointment, activity level and side effects to be aware of. DIAGNOSES: 1. Lumbar spondylosis and lumbosacral spondylosis. 2. Lumbar degenerative disk disease with lumbar radiculopathy. PROCEDURE: Bilateral radiofrequency ablation L4-L5 and L5-S1 levels with serum fluoroscopic guidance under sterile prep and drape using local anesthetic. MEDICATION INJECTED: A total of 120 mg Depo-Medrol, plus 6 mL of 0.25% bupivacaine after radiofrequency ablation was completed, with 2% lidocaine, 6 mL, 1 mL at each level prior to radiofrequency ablation, but after motor, sensory testing. Please see radiofrequency flow sheet for impedances, levels, times, temperature, etc. CONDITION AT DISCHARGE: Stable. The patient tolerated procedure well, had no complications. FEDE RAMIREZ MD DR: SOURAV/lisa JOB#: [id number] / [id number]
== END | disposition home or self-care (01) ==
LOC: PNCL 08:07
PROVIDERS: ATTEND Anesthesiology
DX: M51.16 Intervertebral disc disorders with radiculopathy, lumbar region (principal); M47.26 Other spondylosis with radiculopathy, lumbar region; J44.9 Chronic obstructive pulmonary disease, unspecified; E66.9 Obesity, unspecified; F17.200 Nicotine dependence, unspecified, uncomplicated; Z86.69 Personal history of other diseases of the nervous system and sense organs; Z90.49 Acquired absence of other specified parts of digestive tract
CPT/HCPCS: 64635; 64636; J1030; J1040; J3490; J2001

== ENCOUNTER → 2017-04-27 | Outpatient (CLI) | payer OTHER | END | disposition home or self-care (01) | LOC: PNCL 11:27 | DX: M51.16 Intervertebral disc disorders with radiculopathy, lumbar region (principal); M47.896 Other spondylosis, lumbar region; M54.2 Cervicalgia; R20.0 Anesthesia of skin | CPT/HCPCS: 99212 ==

== ENCOUNTER → 2017-05-25 | Outpatient (CLI) | payer OTHER | END | disposition home or self-care (01) | LOC: PNCL 07:49 | DX: M51.16 Intervertebral disc disorders with radiculopathy, lumbar region (principal); M47.896 Other spondylosis, lumbar region; M50.30 Other cervical disc degeneration, unspecified cervical region | CPT/HCPCS: 99212 ==

== ENCOUNTER → 2017-06-08 | Outpatient (CLI) | payer OTHER ==
[~2017-06-08] MED LIST changes: -BUPIVACAINE MPF 0.25% 10 ML VIAL. ONE; -CELE100C PO; -CELE200C PO; -CYCL10TA2 PO; -DIAZ5TAB PO; -DOCU-150 PO; -DULO60CA6 PO; +IOHEXOL 180 MG/ML 10 ML VIAL.; -LIDOCAINE 1% PF 2 ML VIAL. ONE; -LIDOCAINE 2% PF Vial for OR 5 ML VIAL. ONE; -NALO25TA2 PO; -OMEG-155 PO; -OXYC-323 PO; -OXYC-328 PO; -PHEN15CA2 PO; -PHEN37.53 PO; -POLY17PO29 PO; -TAMS0.4C2 PO; -ZOLP12.52 PO; +methylPREDNISolone ACETATE 40 MG/ML VIAL.; -methylPREDNISolone ACETATE 40 MG/ML VIAL. ONE; +methylPREDNISolone ACETATE 80 MG/ML VIAL.; -methylPREDNISolone ACETATE 80 MG/ML VIAL. ONE
== END | disposition home or self-care (01) ==
LOC: PNCL 08:17
DX: M50.123 Cervical disc disorder at C6-C7 level with radiculopathy (principal); M51.16 Intervertebral disc disorders with radiculopathy, lumbar region; J44.9 Chronic obstructive pulmonary disease, unspecified; K21.9 Gastro-esophageal reflux disease without esophagitis; Z86.69 Personal history of other diseases of the nervous system and sense organs; Z87.39 Personal history of other diseases of the musculoskeletal system and connective tissue; Z98.890 Other specified postprocedural states; Z87.891 Personal history of nicotine dependence; Z90.49 Acquired absence of other specified parts of digestive tract
CPT/HCPCS: 62321; J1030; J1040; Q9965

== ENCOUNTER → 2017-06-22 | Outpatient (CLI) | payer OTHER | LOC: PNCL 09:09 | DX: M50.323 Other cervical disc degeneration at C6-C7 level (principal); M51.16 Intervertebral disc disorders with radiculopathy, lumbar region; J44.9 Chronic obstructive pulmonary disease, unspecified; G47.39 Other sleep apnea; E66.9 Obesity, unspecified; K21.9 Gastro-esophageal reflux disease without esophagitis; Z83.3 Family history of diabetes mellitus; Z80.0 Family history of malignant neoplasm of digestive organs; Z98.890 Other specified postprocedural states; Z90.49 Acquired absence of other specified parts of digestive tract; Z96.691 Finger-joint replacement of right hand; Z87.891 Personal history of nicotine dependence | CPT/HCPCS: 62321; J1030; J1040; Q9965 ==

== ENCOUNTER → 2017-07-06 | Outpatient (CLI) | payer OTHER | END | disposition home or self-care (01) | LOC: PNCL 08:07 | DX: M50.10 Cervical disc disorder with radiculopathy, unspecified cervical region (principal); M51.16 Intervertebral disc disorders with radiculopathy, lumbar region; M47.26 Other spondylosis with radiculopathy, lumbar region; J44.9 Chronic obstructive pulmonary disease, unspecified; G47.33 Obstructive sleep apnea (adult) (pediatric); Z90.49 Acquired absence of other specified parts of digestive tract; E66.09 Other obesity due to excess calories; Z83.3 Family history of diabetes mellitus; Z80.0 Family history of malignant neoplasm of digestive organs; Z87.891 Personal history of nicotine dependence; Z98.890 Other specified postprocedural states; Z79.899 Other long term (current) drug therapy | CPT/HCPCS: 62321; J1030; J1040; Q9965 ==

== ENCOUNTER → 2020-03-03 | Outpatient (CLI) | payer MEDICARE, OTHER ==
[~2020-03-03] MED LIST changes: +CELE100C PO; +CELE200C PO; +CYCL10TA2 PO; +DIAZ5TAB PO; +DOCU-150 PO; +DULO60CA6 PO; +FISH OIL 1,3601 EACH PO; -IOHEXOL 180 MG/ML 10 ML VIAL.; +NALO25TA4 PO; +OXYC1TAB15 PO; +OXYC1TAB22 PO; +PHEN15CA2 PO; +PHEN37.5 PO; +PHEN37.53 PO; +POLY17PO29 PO; +TAMS0.4C2 PO; +ZOLP12.52 PO; -methylPREDNISolone ACETATE 40 MG/ML VIAL.; -methylPREDNISolone ACETATE 80 MG/ML VIAL.
--- NOTE | 2020-03-04 15:01 | SLEEP ---
DATE OF STUDY: 03/03/2020 HOME SLEEP STUDY ATTENDING PHYSICIAN: Dr. Valentín Valdez. Patient is a 54-year-old who weighs 260 pounds with a BMI of 37.3. The patient's [place] score was 23. The patient underwent home sleep study performed at [facility]. Total recording time was 484 minutes. During the night study, the patient had 23 central apneas, 21 obstructive apneas, 18 mixed apneas and 160 hypopneas. The patient's AHI was 31.8 per hour. Nocturnal oximetry study revealed an average oxygen saturation of 91% with the lowest of 85%. The 75 minutes were spent with oxygen saturation of less than 90%. Mean heart rate was 69.9 beats per minute with a maximum of 90 beats per minute. IMPRESSION: 1. Severe obstructive sleep apnea at an AHI of 31.8 per hour. 2. Nocturnal hypoxia secondary to obstructive sleep apnea. RECOMMENDATIONS: 1. The patient should return to the sleep lab for in-lab titration study due to the severity of CHRISTY. Alternate treatment option would include home auto-titration study. 2. Once the patient is optimally treated with CPAP, then follow up in 4-6 weeks to assess compliance with CPAP and to document clinical improvement. 3. Weight loss is strongly advised. 4. Avoid MVA OPERATOR depressants. 5. Cautioned regarding driving until symptoms of sleep apnea resolve with the use of CPAP. PATRICK MORALEZ MD DR: TESS/lisa JOB#: [id number] / [id number] VALENTÍN June MD
== END ==
LOC: RT 07:49
PROVIDERS: ATTEND Family Medicine
DX: G47.33 Obstructive sleep apnea (adult) (pediatric) (principal); G47.34 Idiopathic sleep related nonobstructive alveolar hypoventilation
CPT/HCPCS: G0399

== ENCOUNTER → 2020-04-14 | Outpatient (CLI) | payer MEDICARE, OTHER ==
--- NOTE | 2020-04-15 12:00 | SLEEP ---
DATE OF STUDY: 04/14/2020 SLEEP STUDY ATTENDING PHYSICIAN: Valentín Valdez MD The patient is a 54-year-old who weighs 250 pounds with a BMI of 36. The patient had a home sleep study on 03/03/2020 and was found to have severe CHRISTY at an AHI of 31.8 per hour. The patient was referred for in-lab CPAP titration study. During the night study, the patient spent 416 minutes in bed and slept for 350 minutes with a sleep efficiency of 84%. Sleep latency was 12 minutes with a REM latency of 175 minutes. Sleep architecture showed increased stage 1 sleep, normal stage 2 sleep, normal slow wave and reduced REM sleep, which was only 1% of the total sleep time. EKG monitoring revealed normal sinus rhythm, average heart rate was 72 beats per minute, no arrhythmias observed. No PLMs observed. The patient was started on CPAP at a pressure of 7 cm water and titrated up to 15 cm water. At the final pressure, the patient slept for 111 minutes. The patient had supine sleep and a brief REM sleep. The patient's AHI was reduced to 1 per hour and oxygen saturation remained above 92%. The patient used medium size nasal pillows. IMPRESSION: 1. Severe obstructive sleep apnea diagnosed by home sleep study. 2. No clinically significant periodic limb movements. RECOMMENDATIONS: 1. CPAP at 15 cm water, completely eliminated the patient's sleep apnea, should be used on a nightly basis. 2. Follow up in 4-6 weeks to assess compliance with CPAP and to document clinical improvement. 3. Weight loss is strongly advised. 4. 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 5. Caution regarding driving until symptoms of sleep apnea resolve with the use of CPAP. PATRICK MORALEZ MD DR: TESS/lisa JOB#: [id number] / [id number] VALENTÍN June MD
== END ==
LOC: RT 18:57
PROVIDERS: ATTEND Family Medicine
DX: G47.33 Obstructive sleep apnea (adult) (pediatric) (principal)
CPT/HCPCS: 95811